=== PATIENT | female | born 1970 ===

== ENCOUNTER → 2020-08-22 14:37 | Outpatient (BNVA) | payer MEDICARE, MEDICAID, SELFPAY | PROVIDERS: PCP Family Medicine; Visit Provider Student in an Organized Health Care Education/Training Program | DX: Z13.89 Encounter for screening for other disorder (principal) | CPT/HCPCS: Q3014 ==

== ENCOUNTER 2020-10-09 12:06 | Outpatient (REF) | payer MEDICARE, MEDICAID, SELFPAY ==
--- NOTE | ~2020-10-09 | MM_ITS ---
EXAMINATION: MM DIAGNOSTIC DIGITAL BREAST TOMOSYNTHESIS, BILATERAL US DIAGNOSTIC ULTRASOUND BREAST, LEFT CLINICAL INFORMATION: Pain left nipple. No discharge or palpable mass. Family history breast cancer, sister age 49. Due for yearly. The lifetime risk of breast cancer based on the Tyrer-Cuzick Model is 17%. COMPARISON: Mammography: 12/17/2018, 11/18/2017, 10/06/2016 TECHNIQUE: Digital breast tomosynthesis is performed in both the craniocaudal and mediolateral oblique views along with computer-aided detection (CAD). Synthesized 2D images are generated from the tomosynthesis. Ultrasound left breast is targeted to the area of clinical concern retroareolar and periareolar region. Grayscale imaging and color Doppler are performed without and with harmonics. FINDINGS: The breasts are heterogeneously dense, which may obscure small masses (ACR BI-RADS breast composition Category c). There are no significant masses, abnormal calcifications, or other abnormalities. Parenchymal pattern is similar to prior studies. There is no developing density. No skin thickening or coarsening of the Júnior's ligaments. Ultrasound demonstrates no cystic or solid mass, architectural abnormality, or focal duct ectasia. No skin thickening or edema tracking in soft tissue planes. Results are discussed with the patient at time of visit. MM/MM tomosynthesis diagnostic BI IMPRESSION: 1. No mammographic evidence of malignancy or inflammatory changes. 2. Unremarkable targeted left breast ultrasound. ASSESSMENT: BI-RADS 1: Negative RECOMMENDATION: 1. Patient's left breast pain should be managed based on the clinical impression. 2. Otherwise, routine annual screening mammography. This patient's information was entered into a reminder system with a target due date for their next mammogram.
== END 2020-10-09 12:07 | disposition home or self-care (01) ==
LOC: HO.MAMMO 12:06
PROVIDERS: PCP Family Medicine; Visit Provider Internal Medicine
DX: N64.4 Mastodynia (principal)
CPT/HCPCS: 76642; 77062; 77066

== ENCOUNTER → 2021-10-17 13:42 | Outpatient (BNVA) | payer MEDICARE, MEDICAID, SELFPAY | PROVIDERS: PCP Family Medicine; Visit Provider Nurse Practitioner Family | DX: Z13.89 Encounter for screening for other disorder (principal) ==

== ENCOUNTER 2021-10-24 12:05 | Outpatient (REF) | payer MEDICARE, MEDICAID, SELFPAY ==
--- NOTE | ~2021-10-24 | XR_ITS ---
EXAMINATION: XR AP STANDING VIEW BOTH KNEES. XR KNEE, RIGHT CLINICAL INFORMATION: Right knee pain COMPARISON: MRI 08/25/2018 TECHNIQUE: AP standing view both knees. Lateral and sunrise views of the right knee. FINDINGS: Medial compartment narrowing of both knees with marginal osteophytes. There are small marginal osteophytes in the patellofemoral compartment of the right knee, with no significant joint effusion. No fracture or focal osseous lesion. XR/XR knee RT 2V IMPRESSION: Moderate severe medial compartment osteoarthritis of both knees. No acute abnormality.
--- NOTE | ~2021-10-24 | XR_ITS ---
EXAMINATION: XR AP STANDING VIEW BOTH KNEES. XR KNEE, RIGHT CLINICAL INFORMATION: Right knee pain COMPARISON: MRI 08/25/2018 TECHNIQUE: AP standing view both knees. Lateral and sunrise views of the right knee. FINDINGS: Medial compartment narrowing of both knees with marginal osteophytes. There are small marginal osteophytes in the patellofemoral compartment of the right knee, with no significant joint effusion. No fracture or focal osseous lesion. XR/XR knee standing BI IMPRESSION: Moderate severe medial compartment osteoarthritis of both knees. No acute abnormality.
== END 2021-10-24 12:06 | disposition home or self-care (01) ==
LOC: HO.HOSX 12:05
PROVIDERS: Visit Provider Orthopaedic Surgery
DX: M17.11 Unilateral primary osteoarthritis, right knee (principal); E11.9 Type 2 diabetes mellitus without complications
CPT/HCPCS: 20610; 73560; 73565; 99212; J1100

== ENCOUNTER 2021-11-12 15:15 | Outpatient (REF) | payer MEDICARE, MEDICAID, SELFPAY ==
--- NOTE | ~2021-11-12 | MM_ITS ---
EXAMINATION: MM SCREENING DIGITAL BREAST TOMOSYNTHESIS, BILATERAL CLINICAL INFORMATION: Screening. Asymptomatic. Family history breast cancer, sister The lifetime risk of breast cancer based on the Tyrer-Cuzick Model is 20%. COMPARISON: Mammography: 10/09/2020, 12/16/2018, 11/18/2017, ultrasound left breast 10/09/2020. TECHNIQUE: Digital breast tomosynthesis is performed in both the craniocaudal and mediolateral oblique views along with computer-aided detection (CAD). Synthesized 2D images are generated from the tomosynthesis. Additional left MLO view is provided. FINDINGS: The breasts are heterogeneously dense, which may obscure small masses (ACR BI-RADS breast composition Category c). There are no significant masses, abnormal calcifications, or other abnormalities. Fibronodular parenchymal pattern is similar to prior studies. No significant changes. MM/MM tomosynthesis screening BI IMPRESSION: No mammographic evidence of malignancy. ASSESSMENT: BI-RADS 1: Negative RECOMMENDATION: Routine annual mammography screening. This patient's information was entered into a reminder system with a target due date for their next mammogram.
== END 2021-11-12 15:16 | disposition home or self-care (01) ==
LOC: HO.MAMMO 15:15
PROVIDERS: Visit Provider Family Medicine
DX: Z12.31 Encounter for screening mammogram for malignant neoplasm of breast (principal)
CPT/HCPCS: 77063; 77067

== ENCOUNTER → 2021-12-31 11:36 | Outpatient (BNVA) | payer MEDICARE, MEDICAID, SELFPAY | PROVIDERS: PCP Family Medicine; Referring Provider Family Medicine; Visit Provider Physician Assistant | DX: R43.2 Parageusia (principal) | CPT/HCPCS: 99202 ==

== ENCOUNTER → 2022-03-18 10:37 | Outpatient (BNVA) | payer MEDICARE, MEDICAID, SELFPAY | PROVIDERS: PCP Family Medicine; Visit Provider Internal Medicine Rheumatology | DX: M17.0 Bilateral primary osteoarthritis of knee (principal); M47.816 Spondylosis without myelopathy or radiculopathy, lumbar region; R76.11 Nonspecific reaction to tuberculin skin test without active tuberculosis; H20.9 Unspecified iridocyclitis | CPT/HCPCS: 99212 ==

== ENCOUNTER 2022-05-12 14:51 | Outpatient (REF) | payer MEDICARE, MEDICAID, SELFPAY ==
--- NOTE | ~2022-05-12 | XR_ITS ---
EXAMINATION: XR CHEST CLINICAL INFORMATION: Latent tuberculosis COMPARISON: Chest radiograph dated 07/11/2019 TECHNIQUE: 4 views of the chest were obtained. FINDINGS: No consolidation, pneumothorax, or pleural effusion. No significant pulmonary nodularity. Yane are normal in appearance without radiographic evidence of adenopathy. Cardiac and mediastinal contours are normal. No acute osseous findings. Costophrenic thickening clips are present in the right upper quadrant. XR/XR chest 4 views IMPRESSION: No acute pulmonary findings. No radiographic findings of tuberculosis.
== END 2022-05-12 14:52 | disposition home or self-care (01) ==
LOC: HO.XRAY 14:51
PROVIDERS: PCP Family Medicine; Visit Provider Internal Medicine
DX: Z22.7 Latent tuberculosis (principal); H20.9 Unspecified iridocyclitis
CPT/HCPCS: 71048; 99202

== ENCOUNTER → 2022-05-14 10:36 | Outpatient (BNVA) | payer MEDICARE, MEDICAID, SELFPAY | PROVIDERS: PCP Family Medicine; Referring Provider Family Medicine; Visit Provider Internal Medicine Cardiovascular Disease | DX: Z01.810 Encounter for preprocedural cardiovascular examination (principal); R00.2 Palpitations | CPT/HCPCS: 93005; 99212 ==

== ENCOUNTER 2022-06-02 13:31 | Outpatient (REF) | payer MEDICARE, MEDICAID, SELFPAY ==
[2022-06-02 14:54] LABS: MANUAL DIFF FLAG NO
[2022-06-02 15:05] LABS: Basophils Absolute Auto 0.1 X10*3/uL (0.0-0.2); Basophils Percent Auto 1.1 % (0-2); Eosinophils Absolute Auto 0.1 X10*3/uL (0.0-0.4); Eosinophils Percent Auto 1.6 % (0-4); Hematocrit 42.3 % (37.0-47.0); Imm Gran Abs Auto 0.01 X10*3/uL (0.00-0.03); Imm Gran Pct Auto 0.2 % (0.0-0.4); Lymphocytes Absolute Auto 0.9 X10*3/uL (1.2-4.9); Lymphocytes Percent Auto 20.5 % (20-40); Mean Corpuscular HGB Conc 33.1 g/dl (31.0-35.0); Mean Corpuscular Hemoglobin 30.5 pg (27.0-33.0); Mean Corpuscular Volume 92.2 fL (80.0-98.0); Mean Platelet Volume 8.7 fL (9.4-12.3); Monocytes Absolute Auto 0.5 X10*3/uL (0.1-1.2); Monocytes Percent Auto 11.8 % (2-11); Neutrophils Absolute Auto 2.9 x10*3/uL (2.0-8.3); Neutrophils Percent Auto 64.8 % (45-73); Platelet Count 278 X10*3/uL (160-400); Red Blood Count 4.59 X10*6/uL (4.20-5.50); Red Cell Distribution Width 13.2 % (11.0-16.0); White Blood Count 4.4 X10*3/uL (4.8-10.8)
[2022-06-02 15:34] LABS: Alanine Aminotransferase 37 U/L (0-31); Albumin Level 4.5 g/dL (3.5-5.0); Alkaline Phosphatase 84 U/L (39-117); Anion Gap 17 (12-20); Aspartate Amino Transferase 41 U/L (5-31); Bilirubin Total 0.4 mg/dL (0.0-1.0); Blood Urea Nitrogen 9 mg/dL (9-16); Calcium 9.8 mg/dL (8.4-10.2); Carbon Dioxide 26 mmol/L (22-29); Chloride 103 mmol/L (96-108); Estimated Glomerular Filt Rate 52; Glucose Random 124 mg/dL (60-115); Potassium 4.5 mmol/L (3.3-5.1); Sodium 141 mmol/L (135-145); Total Protein 8.1 g/dL (6.5-8.0)
[2022-06-02 15:58] LABS: Erythrocyte Sedimentation Rate 18 MM/HR (0-20); Ferritin 87 ng/mL (10-250); TSH reflex Free T4 0.14 uIU/mL (0.32-4.0); Vitamin D 25-OH Total 27.6 ng/mL (>30)
[2022-06-02 16:01] LABS: Folate 8.8 ng/mL (> or = 4.0); Vitamin B12 481 pg/mL (200-900)
[2022-06-04 15:36] LABS: Gliadin Deamidated IgA Ab 3.4 U/mL; Gliadin Deamidated IgG Ab <1.0 U/mL; Transglutaminase Ab IgG <1.0 U/mL; Transglutaminase IgA <1.0 U/mL
[2022-06-06 13:01] LABS: Alpha-Tocopherol 12.9 mg/L (5.7-19.9); Beta-Gamma Tocopherol 1.3 mg/L (<=4.3)
[2022-06-06 14:21] LABS: Vitamin A 36 mcg/dL (38-98)
[2022-06-06 16:11] LABS: Histamine Plasma <1.5 ng/mL (< OR = 1.8)
[2022-06-07 06:47] LABS: Zinc 77 mcg/dL (60-130)
[2022-06-07 10:32] LABS: Vitamin C 0.6 mg/dL (0.3-2.7)
[2022-06-07 17:16] LABS: Nicotinamide <20 ng/mL; Vit B3 - Nicotinic Acid <20 ng/mL
[2022-06-09 06:26] LABS: Vitamin B6 9.6 ng/mL (2.1-21.7)
[2022-06-09 11:07] LABS: Vitamin K1 232 pg/mL (130-1500)
== END 2022-06-02 13:32 | disposition home or self-care (01) ==
LOC: HO.LAB 13:31
PROVIDERS: PCP Family Medicine; Visit Provider Internal Medicine Gastroenterology
DX: H20.9 Unspecified iridocyclitis (principal); K21.9 Gastro-esophageal reflux disease without esophagitis; R43.2 Parageusia; K75.81 Nonalcoholic steatohepatitis (NASH); R19.7 Diarrhea, unspecified; G89.29 Other chronic pain; R10.33 Periumbilical pain; Z22.7 Latent tuberculosis
CPT/HCPCS: 36415; 80053; 82180; 82306; 82607; 82728; 82746; 83088; 83520; 83735; 84207; 84439; 84443; 84446; 84590; 84591; 84597; 84630; 85025; 85652; 86003; 86258; 86364; 99212

== ENCOUNTER → 2022-06-03 13:58 | Outpatient (REF) | payer MEDICARE, MEDICAID, SELFPAY ==
--- NOTE | 2022-06-03 14:02 | HM_ITS ---
Conclusion: 1. Patient was monitored for total period of 9 days and 22 hours 2. Baseline was normal sinus rhythm with average heart rate of 70 beats per minute 3. No significant pauses or bradycardia noted next 4. Total of 3187 PACs accounting for 0.37% of total beats accounting for occasional PACs 4. Four short runs of supraventricular tachycardia, fastest at 152 beats per min with longest of 8-10 beats. 5. Patient reported 3 events which correlated with sinus rhythm. MTDD
--- NOTE | 2022-06-03 14:02 | CA_ITS ---
Transthoracic Echocardiogram Patient (Last, First, Middle): Jennifer Sosa, Gender: Female Date of : 1970 Age: 52 Procedure Date: 06/03/2022 Procedure Type: Transthoracic Echocardiogram Location: OP Height: 165.1 cm Weight: 94.35 kg BSA: 2.01 m2 Heart Rate: bpm BP: 134 / 73 mmHg Cosmetologist Apprentice: MIGUEL Referring MD: Bill Goodman MD Symptoms: R00.2 - Palpitations Study Quality: Adequate ECG Rhythm: Sinus and atrial fibrillation Conclusions: - The left ventricular systolic function is normal. The calculated ejection fraction is 65% by biplane method. - The left atrium is moderately dilated. - There is mild mitral annular calcification. - There is mild tricuspid valve regurgitation. - Rhythm alternating between sinus/atrial fibrillation with controlled rate. Findings Left Ventricle Normal left ventricular cavity size. There is mildly increased left ventricular wall thickness. The left ventricular systolic function is normal. The calculated ejection fraction is 65% by biplane method. There is no evidence of regional wall motion abnormalities. Diastolic function is normal for age. Right Ventricle Normal right ventricular cavity size and systolic function. Atria The left atrium is moderately dilated. The right atrium is normal in size. Aortic Valve There is a normal trileaflet aortic valve. There is no aortic valve stenosis. There is no aortic valve regurgitation. Mitral Valve The mitral valve appears normal. There is mild mitral annular calcification. There is trace mitral valve regurgitation. There is no mitral valve stenosis. Pulmonic Valve The pulmonic valve is likely normal. Tricuspid Valve Normal tricuspid valve structure. There is mild tricuspid valve regurgitation. There is no evidence of pulmonary hypertension. Great Vessels The aortic annulus, sinuses of valsalva, and asc aorta are normal in size. Venous The inferior vena cava is normal in size and collapses greater than 50% with inspiration. Pericardium/Pleural There is no evidence of pericardial effusion. Prior Study Comparison Changes noted compared to prior study dated: 09/02/2013. Increase in atrial size. Measurements 2D Linear Measurements IVSd: 1.21 0.6-0.9/0.6-1.0 cm LVIDd: 4.17 3.9-5.3/4.2-5.9 cm LVIDd Index: 2.07 2.4-3.2/2.2-3.1 cm/m2 LVIDs: 2.62 2.0-3.6 cm LVPWd: 1.23 0.7-1.1 cm LA Diam: 3.70 2.7-3.8/3.0-4.0 cm LAIDs Index: 1.84 1.5-2.3 cm/m2 LV Mass: 224.94 67-162/88-224 g LV Mass Index: 111.91 43-95/49-115 g/m2 LVOT Diam: 2.10 3.0+(-)1.3 cm 2D Systolic Function EF 4C: 63.70 >55% EF 2C: 68.60 >55% EF BiP: 65.40 >55% Mitral Valve MV Pk E: 0.93 MV PK A: 0.73 MV Decel Time: 216.00 E/A: 1.30 E'Lateral: 10.40 E'Medial: 6.64 E/E' Med: 14.00 E/E' Lat: 8.90 PHT: 63.00 MVA PHT: 3.49 Decel [place]: 4.30 Aortic Valve AoV Pk Frank: 1.37 AoV Mn Frank: 1.01 AoV VTI: 0.34 AoV Pk Grad: 8.00 Aov Mn Grad: 5.00 REGAN Cont.VTI: 2.56 LVOT LVOT Pk Frank: 1.04 LVOT Mn Frank: 0.63 LVOT VTI: 0.25 LVOT Pk Grad: 4.00 LVOT Mn Grad: 2.00 LVOT Diam: 2.10 LVOT Area: 3.46 Diastolic Function MV Pk E: 0.93 MV Pk A: 0.73 E/A: 1.30 E'Medial: 6.64 E/E' Med: 14.00 E' Laterial: 10.40 E/E' Lat: 8.90 Right Ventricle TAPSE (mm): 23.00 TVS' Frank: 9.03 Tricuspid Valve TR Pk Frank: 2.46 TR Pk Grad: 24.00 RA Press: 8.00 RVSP: 32.00 Great Vessels Aorta Sinus of Valsalva: 3.36 2.0-3.[address] [place]: 2.65 1.7-3.4 cm Ao Asc: 3.30 2.1-3.4 cm Updated in Other Vendor System with Status of Final Rufino Malik MD electronically signed on 06/04/2022 10:16:53 AM with status of Final
== END ==
LOC: HO.CARD 13:58
PROVIDERS: Visit Provider Internal Medicine Cardiovascular Disease
DX: R00.2 Palpitations (principal)
CPT/HCPCS: 93246; 93306

== ENCOUNTER → 2022-06-09 10:03 | Outpatient (REF) | payer MEDICARE, MEDICAID, SELFPAY ==
--- NOTE | ~2022-06-09 | NM_ITS ---
Myocardial perfusion study Indication: Palpitations Technique: The patient was brought in for a Lexiscan perfusion study on 06/09/2022. Patient performed low-level exercise and was injected 0.4 mg of Lexiscan intravenously. Within a minute of injection, 35 mCi of sestamibi was given intravenously. Images were obtained using the SPECT gamma camera interlaced with the gating device. Images were obtained in supine position. Resting perfusion study was performed on 06/11/2022. Patient was administered 35 mCi of sestamibi intravenously at rest. Images were then obtained in supine position. Images obtained with and without CT attenuation. Total DLP 111 mGy-cm. Images were processed with the software and compared side to side in short axis, horizontal long axis and vertical long axis views. Findings: The stress perfusion study showed non attenuated images show minimal thinning of the distal anterior wall of the LV myocardium as well as the apex of the LV myocardium. Remainder of the LV myocardium is normally perfused. Attenuation corrected images shows moderately reduced uptake in the distal anterior and apex of the LV myocardium with thinning of the inferoapical wall of the LV myocardium.. The gated study shows normal LV systolic function with calculated LVEF of 52%. LV cavity is normal in size. The gated study shows normal systolic wall thickening and contraction of segments. Resting study shows no significant change in perfusion pattern compared to stress perfusion study. Gating at rest reveals normal systolic wall motion with ejection fraction at 53%. The findings are consistent with no clear reversible defect suggestive of ischemia. Inferior wall defect most suggestive wall attenuation artifact especially given the normal wall motion. NM/NM zohaib perf SPECT rest & str Impression: 1. Myocardial perfusion imaging study shows no evidence of myocardial ischemia 2. Gated LVEF is 52% 3. Transient ischemic dilatation not present EKG is nondiagnostic for ischemia
--- NOTE | 2022-06-09 10:05 | CA_ITS ---
Acquisition Time: 2022-06-09 10:20:40 Total Exercise Time: 00:02:00 Test Indications: Dyspnea Medications: HUMIRA DEXILANT TRULICITY VALSARTAN TRAMADOL Protocol: LEXISCAN Max HR: 121 BPM 72% of Pred: 167 BPM Max BP: 146/092 mmHG Max Work Load: 1.6 METS Pharmacological stress test with Lexiscan injection, while walking slow on treadmill with mild sob, no chest discomfort, with sinus arrythmia at baseline and in later recovery without other arrythmia, with normotensive response to injection, with nondiagnostic EKG for ischemia. In recovery she was treated with Aminophylline 75mg IVP to revere Lexiscan. Nuclear images pending. Test reviewed with Dr Goodman Referred By: Bill Goodman Overread By: MARILIN ALVARADO
== END ==
LOC: HO.CARD 10:03
PROVIDERS: Visit Provider Internal Medicine Cardiovascular Disease
DX: Z01.810 Encounter for preprocedural cardiovascular examination (principal); E11.9 Type 2 diabetes mellitus without complications
CPT/HCPCS: 78452; 93017; A9500; J0280; J2785

== ENCOUNTER → 2022-06-13 13:12 | Outpatient (BNVA) | payer MEDICARE, MEDICAID, SELFPAY | PROVIDERS: PCP Family Medicine; Visit Provider Nurse Practitioner Family | DX: Z01.810 Encounter for preprocedural cardiovascular examination (principal); R00.2 Palpitations; I48.0 Paroxysmal atrial fibrillation; I10 Essential (primary) hypertension | CPT/HCPCS: 99212 ==

== ENCOUNTER → 2022-06-19 13:06 | Outpatient (BNVA) | payer MEDICARE, MEDICAID, SELFPAY | PROVIDERS: PCP Family Medicine; Visit Provider Physician Assistant | DX: M17.11 Unilateral primary osteoarthritis, right knee (principal) | CPT/HCPCS: 99212 ==

== ENCOUNTER 2022-06-24 05:37 | Inpatient (IN) | payer MEDICARE, MEDICAID, SELFPAY ==
[2022-06-18 12:17] VITALS: BP 145/78; PULSE 52; O2SAT 100; BMI 35.2
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
[2022-06-18 16:35] LABS: MRSA Nasal PCR NEGATIVE (Negative); SA Nasal PCR NEGATIVE (Negative)
[2022-06-24] VITALS (21 sets, daily range): BP systolic 128–167; BP diastolic 70–91; PULSE 16–71; RESP 14–20; TEMP 36.1–36.9; O2SAT 96–100
--- NOTE | ~2022-06-24 | XR_ITS ---
EXAMINATION: XR KNEE, RIGHT CLINICAL INFORMATION: Right total knee arthroplasty COMPARISON: Right knee x-rays 10/24/2021 TECHNIQUE: Two views of the right knee. FINDINGS: Patient is status post right total knee arthroplasty. Components are in expected orientation. There is no periprosthetic fracture. No significant suprapatellar joint effusion. Expected subcutaneous emphysema. Skin parrish demonstrated. XR/XR knee RT 2V IMPRESSION: Expected postoperative changes of the right knee.
[2022-06-24 06:28] LABS: Glucose, Whole Blood 161 mg/dL (60-115)
[2022-06-24 06:37] LABS: COVID-19 Test Negative (Negative); IDNOW Serial# 16C4AD1C
[2022-06-24 06:43] LABS: Hematocrit 37.6 % (37.0-47.0); Hemoglobin 12.5 g/dl (12.0-16.0)
[2022-06-24] MEDS: Lactated Ringers 1,000 ML 100 ML IVCONT ×3 (06:55→19:31)
--- NOTE | 2022-06-24 07:11 | PHA.MEDREC ---
Pharmacy Consult ? Medication Reconciliation Pharmacy has reviewed the medication reconciliation completed by nursing. Cheyanne Mathur, ChavezD
--- NOTE | 2022-06-24 09:16 | P.BOP_ITS ---
Brief Operative Note Date of Service: 06/24/22 Pre-op diagnosis: Right knee OA Post-op diagnosis: same Procedure: Right TKA Implants: Tone Triathlon press fir cruciate retaining 11/19/09 Surgeon: Rob Donnelly MD Anesthesia: GETA and regional Was an Salon Coordinator used for this Procedure?: Yes Salon Coordinator: Susan Valentin Estimated blood loss (mL): 150 IV fluids (mL): 1,000 Pathology: other Condition: stable Disposition: PACU
--- NOTE | 2022-06-24 09:20 | P.OP_ITS ---
Operative Note Operative Note Date of Service: 06/24/22 Narrative: Brief Operative Note Date of Service: 06/24/22 Pre-op diagnosis: Right knee OA Post-op diagnosis: same Procedure: Right TKA Implants: Tone Triathlon press fir cruciate retaining 11/19/09cr/32a Surgeon: Rob Donnelly MD Anesthesia: GETA and regional Was an Power System Electrical Engineer used for this Procedure?: Yes Power System Electrical Engineer: Susan Valentin Estimated blood loss (mL): 150 IV fluids (mL): 1,000 Pathology: other Condition: stable Disposition: PACU Procedure in detail: The patient was brought to the operating room and prepped and draped in standard sterile fashion. A time-out was called to identify proper site proper procedure proper surgeon and IV antibiotics were administered. 1 g of IV tranexamic acid was administered. I began by making a midline incision to the retinaculum and performed a medial parapatellar arthrotomy. The patella was translated laterally and the knee was flexed up. The medial comaprtment was eburnated . I performed a small medial peel and resected the infrapatellar fat pad. Aniceto's line was then used to drill my intramedullary femoral guide and my distal femur cut of ___ mm was made in 5 degrees of valgus while protecting the soft tissues. I then measured a # 4 femur and placed my cutting guide and made my anterior posterior and chamfer cuts protecting the soft tissues at all times. Once I was satisfied with my cuts I turned my attention to the tibia. I removed the meniscus medially and laterally and , using an external cutting guide, in line with the tibial crest and the third ray, I made my distal tibial cut in 3 deg slope of while protecting the PCL the posterior soft tissues at all times. An extension block was used to confirm appropriate amount of bony resection. I then sized a #5 tibia and once I was satisfied that there was complete tibial coverage I placed my trial and with the trial femur in place took the knee through range of motion. I was satisfied with the extension and flexion as well as the stability and balance at 0, 30 and 90 degrees. I then turned my attention to the patella where I removed 1 cm from the undersurface of the patella and then trialed a 32a patellar button. Again the knee was taken through range of motion I was satisfied with the tracking. I then returned to the femur and drilled my femoral lug holes and prepared the tibia. A femoral bone plug was placed and the knee was irrigated copiously. I then press fit the patella, tibia and femur in standard fashion. I trialed different inserts until I selected a #10 insert. The final insert was placed and a 3 minutes iodine soak with local TXA was performed. A Werewolf cautery wand was used to maintain hemostasis over the capsule and meniscal beds, the gutters and peripatellar soft tissues. The knee was then closed with a running Quill suture, a 3 0 Vicryl and parrish on the skin. Patient was then placed in sterile dressing and brought to recovery room in stable condition there were no known complications.
[2022-06-24] MEDS: HYDROmorphone HCl 0.5 MG/0.5 ML SYRINGE IVPUSH ×4 (09:48→10:29)
[2022-06-24] MEDS: Acetaminophen 325 MG TABLET 650 MG PO (10:09)
[2022-06-24] MEDS: oxyCODONE HCl Immed Release 5 MG TABLET 10 MG PO ×2 (10:10→19:21)
[2022-06-24] MEDS: ceFAZolin Sodium/Dextrose,Iso 2 GM/50 ML PIGGYBACK IV (13:50)
[2022-06-24] MEDS: HYDROmorphone HCl 0.5 MG/0.5 ML SYRINGE 0.25 MG IVPUSH (14:21)
[2022-06-24] MEDS: LORazepam 0.5 MG TABLET PO ×2 (14:22→22:49)
--- NOTE | 2022-06-24 17:06 | P.CONHOSP_ITS ---
History of Present Illness Data of Consult Service Date: 06/24/22 Requesting physician: Susan Valentin Primary Care Provider: Morena Kimball MD [facility] Reason for consult: medical management DM, htn 52-year-old female with [id number] type 2 diabetes, hypertension, paroxysmal atrial fibrillation anticoagulated with Eliquis, chronic low back pain, uveitis and glaucoma, ibs on rifaximin, anxiety, osteoarthritis of the knees bilaterally, and GERD admitted to Orthopedics S/P right TKR with consult placed for medical management. Currently reporting 6/10 pain of the right knee but otherwise has no complaints. Review of Systems 2 Review of Systems: General: No fevers, malaise, unintentional weight loss HEENT: No blurred vision, diplopia. Cardiovascular: No chest pain, palpitations, or leg edema Respiratory: No shortness of breath, wheezing, cough GI: No abdominal pain, nausea, vomiting, diarrhea, constipation, melena, hematochezia : No dysuria, hematuria, increased urinary frequency, decreased urinary output MSK: +right knee pain, +low back pain Neuro: No headaches, weakness, paresthesias Skin: No rashes or lesions [facility] Medical History Anxiety Atrophic kidney Bradycardia Depression Diabetes mellitus Fibromyalgia Hypertension Latent tuberculosis PAF (paroxysmal atrial fibrillation) Polyarthralgia Positive TB test Primary osteoarthritis of knees, bilateral Psoriasis Uveitis Family History Father Diabetes COPD (chronic obstructive pulmonary disease) Asthma Mother HTN (hypertension) Arthritis Hyperlipemia Surgical History History of eye surgery History of partial hysterectomy Hx of cholecystectomy Hx of right knee surgery Hx of tooth extraction Hx of tubal ligation Social History Household Members: Family Housing: House Are you a primary adult daycare coordinator to a significant other at home: No 75 years or older and lives alone: No Alcohol intake: current Alcohol intake frequency: a few times a month Alcohol type: beer, wine and hard liquor Patient Tobacco Use Status: Never used Tobacco Second Hand Smoke Exposure: No Current occupational status: employed Current occupation: [employer] Meds Allergies Allergy/AdvReac Type Severity Reaction Status Date / Time CARLITOS Inhibitors Allergy Severe COUGH Verified 06/19/22 13:15 [CARLITOS INHIBITORS] rifampin [RIFAMPIN] Allergy Severe MUSCLE Verified 06/19/22 13:15 ACHE,PAINS simvastatin [SIMVASTATIN] Allergy Severe MUSCLE, Verified 06/19/22 13:15 muscle px ibuprofen Allergy Unknown kidney Verified 06/19/22 13:15 disease ciprofloxacin [From CIPRO] AdvReac Unknown NAUSEA/VOMI Verified 06/19/22 13:15 TING Active Medications: Current Medications Acetaminophen (Acetaminophen 325 Mg Tablet) 650 mg PO Q6H PRN PRN Reason: Pain, Mild (Pain Scale 1-3) Celecoxib (Celecoxib 200 Mg Capsule) 200 mg PO BID [facility] Docusate Sodium (Docusate Sodium 100 Mg Capsule) 100 mg PO BID [facility] Enoxaparin Sodium (Enoxaparin Sodium 40 Mg/0.4 Ml Syringe) 40 mg SUBCUT Q24H [facility] Hydromorphone HCl (Hydromorphone Hcl 0.5 Mg/0.5 Ml Syringe) 0.25 mg IVPUSH Q4H PRN; Protocol PRN Reason: Pain, Severe (Pain Scale 7-10) Last Admin: 06/24/22 14:21 Dose: 0.25 mg Lactated Ringer's (Lr) 1,000 mls @ 100 mls/hr IVCONT .Q10H [facility] Stop: 06/25/22 10:59 Last Admin: 06/24/22 15:24 Dose: Not Given Lorazepam (Lorazepam 0.5 Mg Tablet) 0.5 mg PO BEDTIME PRN PRN Reason: Anxiety Non-Formulary Medication (Brimonidine-Timolol [Combigan]) 1 drop EYE-BOTH BID [facility] Non-Formulary Medication (Dexlansoprazole [Dexilant]) 60 mg PO DAILY [facility] Ondansetron HCl (Ondansetron Hcl 4 Mg/2 Ml Vial) 4 mg IVPUSH Q8H PRN PRN Reason: Nausea and Vomiting Oxycodone HCl (Oxycodone Hcl Er 10 Mg Tab.Er.12h) 10 mg PO BID [facility] Oxycodone HCl (Oxycodone Hcl Immed Release 5 Mg Tablet) 10 mg PO Q4H PRN PRN Reason: Pain, Moderate (Pain Scale 4-6 Rifaximin (Rifaximin 550 Mg Tablet) 550 mg PO TID [facility] Last Admin: 06/24/22 16:23 Dose: Not Given Sodium Chloride (0.9 % Sodium Chloride Flush 3 Ml Syringe) 3 ml IVFLUSH QSHIFT [facility] Last Admin: 06/24/22 16:24 Dose: Not Given Home Medications Medication Instructions Recorded Confirmed Last Taken Type brimonidine 0.2 %-timolol 0.5 % 1 drp ophthalmic (eye) BID 08/22/20 06/19/22 06/22/22 History eye drops (Combigan) dexlansoprazole 60 mg 60 mg PO DAILY 08/22/20 06/19/22 06/21/22 History capsule,biphase delayed release (Dexilant) cholecalciferol (vitamin D3) 25 25 mcg PO DAILY 03/18/22 06/19/22 06/22/22 History mcg (1,000 unit) capsule sennosides 8.6 mg capsule (senna) 8.6 mg PO DAILY PRN Constipation 03/18/22 06/19/22 06/22/22 History lorazepam 0.5 mg tablet 0.5 mg PO BEDTIME PRN Anxiety 05/14/22 06/19/22 06/22/22 History dulaglutide 0.75 mg/0.5 mL 0.75 mg subcut QWEEK 06/02/22 06/19/22 06/16/22 History subcutaneous pen injector (Trulicity) valsartan 160 mg tablet (Diovan) 320 mg PO DAILY 06/13/22 06/19/22 06/23/22 History Lactobacillus acidophilus and 1 cap PO DAILY 06/18/22 06/19/22 06/22/22 History rhamnosus 15 billion cell capsule (Probiotic) ascorbic acid (vitamin C) 1,000 mg 1,000 mg PO DAILY 06/18/22 06/19/22 06/22/22 History tablet (Vitamin C) methylcellulose (laxative) 500 mg 500 mg PO BID PRN Constipation 06/18/2206/22/22 History tablet (Citrucel) multivitamin 1 tab PO DAILY 06/18/22 06/19/22 06/22/22 History ferrous sulfate 325 mg (65 mg 325 mg PO DAILY 06/19/22 06/24/22 06/22/22 History iron) tablet (iron) Physical Exam Vital Signs and Narrative: Vital Signs: Last Vital Signs Temp 97.3 F 06/24/22 14:36 Pulse 51 06/24/22 14:36 Resp 16 06/24/22 14:36 BP 128/75 06/24/22 14:36 Pulse Ox 100 06/24/22 14:36 O2 Del Method 06/24/22 14:36 O2 Flow Rate 2 06/24/22 14:36 BMI result Body Mass Index 35.2 Constitutional - Awake and Alert, No apparent distress Eyes - PERRLA, EOMI Cardiovascular - S1S2, RRR, No edema Respiratory - Normal lung expansion, Normal respiratory effort, No respiratory distress, CTA bilaterally Gastrointestinal - NT / ND; +BS; No rebound or guarding Extremities - no calf tenderness bilaterally, no swelling Musculoskeletal - right knee s/p TKR in compression bandage Skin - Warm/Dry Neurological - Alert & oriented x3 Results Labs CBC and Chem 7: 06/24/22 06:32 Labs: Laboratory Results - last 24 hr 06/24/22 06/24/22 06:15 06:23 POC Glucose 161 H COVID-19 (QUITA) Negative COVID-19 Clin Com See Note Imaging Radiologist's Impressions: Impressions Knee X-Ray 06/24/22 09:58 IMPRESSION: Expected postoperative changes of the right knee. Assessment and Plan (1) Osteoarthritis of right knee: Status: Acute Plan 52-year-old female with uzj-[id number]-nbuuhifzu type 2 diabetes, hypertension, paroxysmal atrial fibrillation anticoagulated with Eliquis, chronic low back pain, uveitis and glaucoma, ibs on rifaximin, anxiety, osteoarthritis of the knees bilaterally, and GERD admitted to Orthopedics S/P right TKR with consult placed for medical managemen. #Osteoarthritis right knee s/p right TKR POD #0 -plan per orthopedics # [id number]-[id number] type 2 diabetes -patient missed dose of Trulicity yesterday. She will have her son bring in her Trulicity for dosing today -POC glucose -diabetic diet -Humalog on sliding scale for hyperglycemia # atrial fibrillation-rate controlled -resume Eliquis at the recommendation of orthopedics -Not on rate control medication #HTN- BP soft -resume valsartan tomorrow #IBS -continue rifaximin # anxiety -continue lorazepam # GERD -continue PPI # uveitis/glaucoma -continue home eye drops Thank you for this consult. Will continue to follow.
[2022-06-24] MEDS: oxyCODONE HCl ER 10 MG TAB.ER.12H PO (19:22)
[2022-06-24] MEDS: rifAXIMin 550 MG TABLET PO (19:24)
[2022-06-24] MEDS: Docusate Sodium 100 MG CAPSULE PO (19:24)
[2022-06-24] MEDS: Celecoxib 200 MG CAPSULE PO (19:24)
[2022-06-25] VITALS (7 sets, daily range): BP systolic 131–172; BP diastolic 60–80; PULSE 59–90; RESP 16–20; TEMP 35.8–37; O2SAT 98–100
[2022-06-25] MEDS: HYDROmorphone HCl 0.5 MG/0.5 ML SYRINGE 0.25 MG IVPUSH ×3 (01:16→13:49)
[2022-06-25] MEDS: oxyCODONE HCl Immed Release 5 MG TABLET 10 MG PO ×4 (03:50→21:01)
[2022-06-25] MEDS: Lactated Ringers 1,000 ML 100 ML IVCONT (03:54)
[2022-06-25 06:01] LABS: MANUAL DIFF FLAG NO
[2022-06-25 06:22] LABS: Basophils Percent Auto 0.1 % (0-2); Hematocrit 34.3 % (37.0-47.0); Hemoglobin 11.4 g/dl (12.0-16.0); Imm Gran Abs Auto 0.04 X10*3/uL (0.00-0.03); Imm Gran Pct Auto 0.4 % (0.0-0.4); Lymphocytes Percent Auto 9.5 % (20-40); Mean Corpuscular HGB Conc 33.2 g/dl (31.0-35.0); Mean Corpuscular Hemoglobin 31.3 pg (27.0-33.0); Mean Corpuscular Volume 94.2 fL (80.0-98.0); Mean Platelet Volume 8.9 fL (9.4-12.3); Monocytes Absolute Auto 0.9 X10*3/uL (0.1-1.2); Monocytes Percent Auto 8.8 % (2-11); Neutrophils Absolute Auto 8.4 x10*3/uL (2.0-8.3); Neutrophils Percent Auto 81.2 % (45-73); Platelet Count 195 X10*3/uL (160-400); Red Blood Count 3.64 X10*6/uL (4.20-5.50); Red Cell Distribution Width 12.9 % (11.0-16.0); White Blood Count 10.4 X10*3/uL (4.8-10.8)
[2022-06-25 06:24] LABS: Anion Gap 13 (12-20); Blood Urea Nitrogen 11 mg/dL (9-16); Calcium 8.6 mg/dL (8.4-10.2); Carbon Dioxide 28 mmol/L (22-29); Chloride 102 mmol/L (96-108); Creatinine Clr Calc Pharmacy 93.2; Estimated Glomerular Filt Rate > 60; Glucose Fasting 171 mg/dL (60-99); Potassium 4.6 mmol/L (3.3-5.1); Sodium 138 mmol/L (135-145)
[2022-06-25 07:38] LABS: Glucose, Whole Blood 163 mg/dL (60-115)
--- NOTE | 2022-06-25 07:46 | PM.PNORT ---
Subjective Subjective Date of Service: 06/25/22 Interval history: POD1 Patient is resting comfortably in bed. No overnight events. Pain is well managed. No additional complaints. Physical Exam Vital Signs: Vital Signs: Last Vital Signs Temp 98.6 F 06/25/22 07:15 Pulse 67 06/25/22 07:15 Resp 18 06/25/22 07:15 BP 159/69 H 06/25/22 07:15 Pulse Ox 98 06/25/22 07:15 O2 Del Method 06/25/22 07:15 O2 Flow Rate 2 06/24/22 14:36 BMI result Body Mass Index 35.2 Const: General: cooperative, healthy appearing and no acute distress Resp: Effort & Inspection: normal respiratory effort and able to speak in complete sentences Cardio: Rate: regular rate Peripheral pulses: Peripheral pulses 2+ throughout GI: Palpation (GI): Soft to palpation Skin: Lesions: no lesions Rashes: no rashes Extrem: Other: Right knee Aquacel is clean dry and intact. Able to dorsiflex and plantar flex. Sensation intact. Pedal pulse intact. Procedures Date of Service Date of Service: 06/25/22 Progress Note: A&P Assessment and plan (1) S/P total knee arthroplasty: Status: Acute Assessment and Plan: Continue pain mgmnt Begin Lovenox for dvt ppx patient may transition to Eliquis at 48 hours postop due to new onset AFib. begin PT for right total knee arthroplasty Dispo planning-Pending PT eval, pain mgmnt (2) Osteoarthritis of right knee: Status: Acute Time Spent With Patient Time: Total time spent is greater than 50% in coordination of care (as documented) at patient's floor/unit and/or counseling patient: Quality Stroke Does the patient have a stroke diagnosis?: No VTE Prior VTE?: No VTE Risk Level:: Medical - moderate - high VTE Device Contraindication: N/A - Device Ordered VTE Drug Contraindication: N/A - Med Ordered
--- NOTE | 2022-06-25 07:54 | P.PNOP_ITS ---
Subjective Subjective Date of Service: 06/25/22 Interval history: POD 1 s/p RT TKa no overnight events resting in bed, tolerating pain well denies sob, palpitations, cp Physical Exam Vital Signs: Vital Signs: Last Vital Signs Temp 98.6 F 06/25/22 07:15 Pulse 67 06/25/22 07:15 Resp 18 06/25/22 07:15 BP 159/69 H 06/25/22 07:15 Pulse Ox 98 06/25/22 07:15 O2 Del Method 06/25/22 07:15 O2 Flow Rate 2 06/24/22 14:36 BMI result Body Mass Index 35.2 Const: General: cooperative, healthy appearing and no acute distress Resp: Effort & Inspection: normal respiratory effort and able to speak in complete sentences Cardio: Rate: regular rate Peripheral pulses: Peripheral pulses 2+ throughout GI: Palpation (GI): Soft to palpation Skin: General skin exam: no rashes or lesions noted Extrem: Other: bandage clean dry and intact. Scottie intact. No erythema or joint effusion. Calf supple nontender. Neurovascularly intact. Procedures Date of Service Date of Service: 06/25/22 Progress Note: A&P Assessment and plan (1) S/P total knee arthroplasty: Status: Acute Assessment and Plan: * Continue pain mgmnt * Begin Lovenox for dvt ppx * begin PT for RT TKA * Dispo planning-Pending PT eval, pain mgmnt Time Spent With Patient Time: Total time spent is greater than 50% in coordination of care (as documented) at patient's floor/unit and/or counseling patient: Quality Stroke Does the patient have a stroke diagnosis?: No VTE Prior VTE?: No VTE Risk Level:: Medical - moderate - high VTE Device Contraindication: N/A - Device Ordered VTE Drug Contraindication: N/A - Med Ordered
--- NOTE | 2022-06-25 09:40 | MHC.CM.PN ---
IMM 06/25/22 Female 52 S/P TKA. 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 She requires assist ADLs. Ambulation w AD. [facility] referred from Ortho office. Patient has Wilfrid in place. DP home [facility] Wilfrid patients son will transport home. VAX x2. HCP documented placed on chart.
[2022-06-25] MEDS: oxyCODONE HCl ER 10 MG TAB.ER.12H PO ×2 (09:55→21:03)
[2022-06-25] MEDS: rifAXIMin 550 MG TABLET PO ×3 (09:55→21:03)
[2022-06-25] MEDS: Celecoxib 200 MG CAPSULE PO ×2 (09:56→21:03)
[2022-06-25] MEDS: Docusate Sodium 100 MG CAPSULE PO ×2 (09:56→21:03)
[2022-06-25] MEDS: Enoxaparin Sodium 40 MG/0.4 ML SYRINGE SUBCUT (09:56)
--- NOTE | 2022-06-25 10:30 | P.PNIM_ITS ---
Subjective Subjective Date of Service: 06/25/22 Interval History: Seen in follow up for medical management s/p right TKR POD1 Interval history: Amrit reports improvement in pain. Walked to doorway and back with moderate discomfort. Worried about bleeding risk with lovenox, but is on eliquis at home for afib Review of Systems General: No fevers, malaise, unintentional weight loss Cardiovascular: No chest pain, palpitations, or leg edema Respiratory: No shortness of breath, wheezing, cough GI: No abdominal pain, nausea, vomiting, diarrhea, constipation, melena, hematochezia : No dysuria, hematuria, increased urinary frequency MSK: +right knee pain Neuro: No headaches, weakness, paresthesias Skin: No rashes or lesions Review of Systems: Yes all other systems are reviewed and are negative Physical Exam Vital Signs: Vital Signs: Last Vital Signs Temp 98.6 F 06/25/22 07:15 Pulse 67 06/25/22 07:15 Resp 18 06/25/22 07:15 BP 159/69 H 06/25/22 07:15 Pulse Ox 98 06/25/22 07:15 O2 Del Method 06/25/22 07:15 O2 Flow Rate 2 06/24/22 14:36 BMI result Body Mass Index 35.2 Constitutional - Awake and Alert, No apparent distress Eyes - PERRLA, EOMI Cardiovascular - S1S2, RRR, No edema Respiratory - Normal lung expansion, Normal respiratory effort, No respiratory distress, CTA bilaterally Gastrointestinal - NT / ND; +BS; No rebound or guarding Extremities - no calf tenderness bilaterally, no swelling Musculoskeletal - right knee s/p TKR in compression bandage Skin - Warm/Dry Neurological - Alert & oriented x3 Objective Data Active Medications Acetaminophen (Acetaminophen 325 Mg Tablet) 650 mg PO Q6H PRN PRN Reason: Pain, Mild (Pain Scale 1-3) Celecoxib (Celecoxib 200 Mg Capsule) 200 mg PO BID [facility] Last Admin: 06/25/22 09:56 Dose: 200 mg Documented By: GLENN Docusate Sodium (Docusate Sodium 100 Mg Capsule) 100 mg PO BID [facility] Last Admin: 06/25/22 09:56 Dose: 100 mg Documented By: GLENN Enoxaparin Sodium (Enoxaparin Sodium 40 Mg/0.4 Ml Syringe) 40 mg SUBCUT Q24H [facility] Last Admin: 06/25/22 09:56 Dose: 40 mg Documented By: GLENN Hydromorphone HCl (Hydromorphone Hcl 0.5 Mg/0.5 Ml Syringe) 0.25 mg IVPUSH Q4H PRN; Protocol PRN Reason: Pain, Severe (Pain Scale 7-10) Last Admin: 06/25/22 07:37 Dose: 0.25 mg Documented By: GLENN Lactated Ringer's (Lr) 1,000 mls @ 100 mls/hr IVCONT .Q10H [facility] Stop: 06/25/22 10:59 Last Admin: 06/25/22 03:54 Dose: 100 mls/hr Documented By: JOHN Lorazepam (Lorazepam 0.5 Mg Tablet) 0.5 mg PO BEDTIME PRN PRN Reason: Anxiety Last Admin: 06/24/22 22:49 Dose: 0.5 mg Documented By: SEBASTIAN Non-Formulary Medication (Brimonidine-Timolol [Combigan]) 1 drop EYE-BOTH BID [facility] Non-Formulary Medication (Dexlansoprazole [Dexilant]) 60 mg PO DAILY [facility] Ondansetron HCl (Ondansetron Hcl 4 Mg/2 Ml Vial) 4 mg IVPUSH Q8H PRN PRN Reason: Nausea and Vomiting Oxycodone HCl (Oxycodone Hcl Er 10 Mg Tab.Er.12h) 10 mg PO BID [facility] Last Admin: 06/25/22 09:55 Dose: 10 mg Documented By: GLENN Oxycodone HCl (Oxycodone Hcl Immed Release 5 Mg Tablet) 10 mg PO Q4H PRN PRN Reason: Pain, Moderate (Pain Scale 4-6 Last Admin: 06/25/22 03:50 Dose: 10 mg Documented By: JOHN Rifaximin (Rifaximin 550 Mg Tablet) 550 mg PO TID [facility] Last Admin: 06/25/22 09:55 Dose: 550 mg Documented By: GLENN Sodium Chloride (0.9 % Sodium Chloride Flush 3 Ml Syringe) 3 ml IVFLUSH QSHIFT [facility] Last Admin: 06/25/22 09:26 Dose: Not Given Documented By: JEANETTE Non-Admin Reason: IV Running Labs CBC & Chem 7: 06/25/22 05:26 06/25/22 05:26 Labs: Laboratory Results - last 24 hr 06/25/22 06/25/22 06/25/22 05:26 05:26 07:14 MCV 94.2 MCH 31.3 MCHC 33.2 RDW 12.9 Plt Count 195 D MPV 8.9 L Immature Gran % (Auto) 0.4 Neut % (Auto) 81.2 H Lymph % (Auto) 9.5 L [place] % (Auto) 8.8 Eos % (Auto) 0.0 Baso % (Auto) 0.1 Lymph # (Auto) 1.0 L [place] # (Auto) 0.9 Eos # (Auto) 0.0 Baso # (Auto) 0.0 Abs Immat Gran (auto) 0.04 H Absolute Neuts (auto) 8.4 H Absolute Nucleated RBC 0.000 Nucleated RBC % (auto) 0.0 Anion Gap 13 Estim Creat Clear Calc 93.2 Estimated GFR > 60 POC Glucose 163 H Fasting Glucose 171 H Calcium 8.6 D Assessment and Plan (1) S/P total knee arthroplasty: Status: Acute Plan 52-year-old female with uso-oqjkonp-zhwwdnkri type 2 diabetes, hypertension, paroxysmal atrial fibrillation anticoagulated with Eliquis, chronic low back pain, uveitis and glaucoma, ibs on rifaximin, anxiety, osteoarthritis of the knees bilaterally, and GERD admitted to Orthopedics S/P right TKR with consult placed for medical managemen. #Osteoarthritis right knee s/p right TKR POD #1 -plan per orthopedics # ikw-dtiziau-owxuclvkt type 2 diabetes- glucose reasonably controlled. -patient missed dose of Trulicity yesterday.?Has not gotten trulcity dose from home. Will likely need to resume at home and adjust weekly dosing. -POC glucose -diabetic diet -Humalog on sliding scale for hyperglycemia # atrial fibrillation-rate controlled -resume Eliquis at the recommendation of orthopedics -Not on rate control medication #HTN-reasonably controlled -resume valsartan tomorrow #IBS -continue rifaximin # anxiety -continue lorazepam # GERD -continue PPI # uveitis/glaucoma -continue home eye drops Thank you for this consult. Will continue to follow. Quality Stroke Does the patient have a stroke diagnosis?: No VTE Prior VTE?: No VTE Risk Level:: Medical - moderate - high VTE Device Contraindication: N/A - Device Ordered VTE Drug Contraindication: N/A - Med Ordered
[2022-06-25 11:18] LABS: Glucose, Whole Blood 166 mg/dL (60-115)
--- NOTE | 2022-06-25 12:09 | HO.POSTANES ---
Post Anesthesia Evaluation Post Anesthesia Evaluation Vital Signs: Vital Signs Temp Pulse Resp BP Pulse Ox O2 Del Method 06/25/22 10:59 97.0 F 81 18 134/61 100 Room Air 06/25/22 07:15 98.6 F 67 18 159/69 H 98 Room Air 06/25/22 03:19 97.3 F 59 18 153/77 H 99 Room Air Anesthesia: Nerve Block and General Mental Status: Awake Pain Control: Satisfactory Nausea/Vomiting: None Hydration: Adequate Anesthesia-Related Issues: No Anes. Related Issues
--- NOTE | 2022-06-25 13:11 | MHC.CLN ---
NUTRITION INCREASED DIABETIC DIET CALORIES TO 1800 KCALS TO BETTER MEET ESTIMATED ENERGY NEEDS.
--- NOTE | 2022-06-25 14:34 | P.CDIC_ITS ---
CDI Concurrent Query Documentation Clarification: PHYSICIAN'S DOCUMENTATION REQUEST Date of Query: 06/25/22 1435 Patient Name: Jennifer Sosa Admit Date: 06/24/22 Dear Doctor, A review of the medical record indicates additional documentation may be needed. Please review below and update the documentation accordingly. Clinical Indicators: Is there a diagnosis that correlates with the findings below: Risk Factors/Clinical Indicators/Treatments BMI: 35.3 HEIGHT: 5ft 5in WEIGHT: 96.162kg If possible, please provide an associated diagnosis related to the abnormal BMI, such as: * Overweight * Obesity * Due to excess calories * Drug induced * Due to other cause * Severe or Morbid Obesity Or: * BMI is not significant * Other (please specify) * Unable to determine Use of terms such as suspected, likely, concern for, or probable (associated with a specific diagnosis that is being evaluated, monitored, or treated as if it exists) are acceptable and can be coded in the inpatient setting, when d ocumented at the time of discharge. Thank you, Su Hall MS, RN, CCRN Extension: [phone] Please use your independent medical judgment in providing your response. THIS QUERY IS PART OF THE PERMANENT MEDICAL RECORD
--- NOTE | 2022-06-25 14:34 | MHC.CDI.CONC ---
CDI Concurrent Query Documentation Clarification: PHYSICIAN'S DOCUMENTATION REQUEST Date of Query: 06/25/22 1438 Patient Name: Jennifer Sosa Admit Date: 06/24/22 Dear Doctor, A review of the medical record indicates additional documentation may be needed. Please review below and update the documentation accordingly. Clinical Indicators: Is there a diagnosis that correlates with the findings below: Risk Factors/Clinical Indicators/Treatments BMI: 35.3 HEIGHT: 5ft 5in WEIGHT: 96.162kg If possible, please provide an associated diagnosis related to the abnormal BMI, such as: Overweight Obesity Due to excess calories Drug induced Due to other cause Severe or Morbid Obesity Or: BMI is not significant Other (please specify) Unable to determine Use of terms such as suspected, likely, concern for, or probable (associated with a specific diagnosis that is being evaluated, monitored, or treated as if it exists) are acceptable and can be coded in the inpatient setting, when documented at the time of discharge. Thank you, Su Hall MS, RN, CCRN Extension: [phone] Please use your independent medical judgment in providing your response. THIS QUERY IS PART OF THE PERMANENT MEDICAL RECORD
[2022-06-25 15:48] LABS: Glucose, Whole Blood 217 mg/dL (60-115)
[2022-06-25] MEDS: Insulin Lispro 100 UNIT/ML 3 ML VIAL SUBCUT (17:01)
[2022-06-25] MEDS: 0.9 % Sodium Chloride Flush 3 ML SYRINGE IVFLUSH (17:02)
[2022-06-25 20:13] LABS: Glucose, Whole Blood 141 mg/dL (60-115)
[2022-06-26] MEDS: 0.9 % Sodium Chloride Flush 3 ML SYRINGE IVFLUSH ×4 (00:11→23:51)
[2022-06-26] MEDS: HYDROmorphone HCl 0.5 MG/0.5 ML SYRINGE 0.25 MG IVPUSH ×3 (00:20→14:06)
[2022-06-26 02:46] VITALS: BP 127/62; PULSE 86; RESP 16; TEMP 36.9; O2SAT 99
--- NOTE | 2022-06-26 05:42 | P.DS_ITS ---
DS: Providers Provider Date of Service: 06/26/22 Date of admission: 06/24/22 05:37 Primary care physician: Morena Kimball MD Consults: 06/24/22 15:16 Consult to Hospitalist Routine Consulting Provider: Hospitalist Reason For Exam: diabetes, new afib on eliquis DS: Diagnosis Discharge Diagnosis (1) S/P total knee arthroplasty: Status: Acute DS: Summary Hospital Course Hospital Course: The patient underwent a successful right total knee arthroplasty, she was transferred to PACU and then to the floor to recover. During their stay, their vitals were stable, afebrile at 98.1 . Labs were unremarkable, H/H 11.2/32.9 . POD 1 she was started on Loveno for DVT ppx, and 48 hours post op she transitioned to her home anticoagulant, Eliquis. She also received PT services twice a day. Prior to discharge, her dressing was changed, incision clean dry and intact, new Aquacel dressing applied and the plan was to be discharged home with [facility] services. Physical Therapy for Total knee arthroplasty: WBAT, gait training, ROM 0-12, quad strength * Limit stair climbing * No showering, no tub bath-keep dressing clean, dry and intact * No driving x6 weeks Follow up with [facility] [place] in 2 weeks: 07/14/22 @ 11:30am with Susan valentin Time Spent with Patient Time attestation: Total time spent providing and/or coordinating discharge services: Discharge coordination time: Less than 30 minutes Quality: Safe Use of Opioids Does Pt have an Active Cancer Diagnosis on the Problem List?: No Quality: Stroke Does the patient have a stroke diagnosis?: No Physical Exam Vital Signs: Vital Signs: Last Vital Signs Temp 98.4 F 06/26/22 02:46 Pulse 86 06/26/22 02:46 Resp 16 06/26/22 02:46 BP 127/62 06/26/22 02:46 Pulse Ox 99 06/26/22 02:46 O2 Del Method 06/26/22 02:46 O2 Flow Rate 2 06/24/22 14:36 BMI result Body Mass Index 35.2 Const: General: cooperative, healthy appearing and no acute distress Resp: Effort & Inspection: normal respiratory effort and able to speak in complete sentences Cardio: Rate: regular rate Peripheral pulses: Peripheral pulses 2+ throughout GI: Palpation (GI): Soft to palpation Skin: General skin exam: no rashes or lesions noted Extrem: Other: bandage clean dry and intact. Scottie intact. No erythema or joint effusion. Calf supple nontender. Neurovascularly intact. DS: Data Data Completed and Pending Pending studies at discharge: Pending at discharge 06/24/22 08:52 Surgical [PTH] Routine Labs on day of discharge: Laboratory Results - last 24 hr 06/25/22 06/25/22 06/25/22 05:26 05:26 07:14 WBC 10.4 RBC 3.64 L D Hgb 11.4 L Hct 34.3 L MCV 94.2 MCH 31.3 MCHC 33.2 RDW 12.9 Plt Count 195 D MPV 8.9 L Immature Gran % (Auto) 0.4 Neut % (Auto) 81.2 H Lymph % (Auto) 9.5 L [place] % (Auto) 8.8 Eos % (Auto) 0.0 Baso % (Auto) 0.1 Lymph # (Auto) 1.0 L [place] # (Auto) 0.9 Eos # (Auto) 0.0 Baso # (Auto) 0.0 Abs Immat Gran (auto) 0.04 H Absolute Neuts (auto) 8.4 H Absolute Nucleated RBC 0.000 Nucleated RBC % (auto) 0.0 Sodium 138 Potassium 4.6 Chloride 102 Carbon Dioxide 28 Anion Gap 13 BUN 11 Creatinine 0.80 Estim Creat Clear Calc 93.2 Estimated GFR > 60 POC Glucose 163 H Fasting Glucose 171 H Calcium 8.6 D 06/25/22 06/25/22 06/25/22 11:10 15:43 20:03 WBC RBC Hgb Hct MCV MCH MCHC RDW Plt Count MPV Immature Gran % (Auto) Neut % (Auto) Lymph % (Auto) [place] % (Auto) Eos % (Auto) Baso % (Auto) Lymph # (Auto) [place] # (Auto) Eos # (Auto) Baso # (Auto) Abs Immat Gran (auto) Absolute Neuts (auto) Absolute Nucleated RBC Nucleated RBC % (auto) Sodium Potassium Chloride Carbon Dioxide Anion Gap BUN Creatinine Estim Creat Clear Calc Estimated GFR POC Glucose 166 H 217 H 141 H Fasting Glucose Calcium Discharge Plan Discharge Anticipated Discharge Date/Time: 06/28/22 10:07 Patient Disposition: Home Health Service Discharge Diagnosis: RT TKA Referrals: Meuse,Ta-Nhi, PA-C [Physician Systems Lead] - 2 Weeks (07/14/22 11:30 [facility] [place] [facility] Susan Valentin PA-C) Discharge Medications: New celecoxib 200 mg Capsule 200 mg PO BID 30 Days Qty: 60 0RF acetaminophen 325 mg Tablet 650 mg PO Q6H PRN (Reason: Pain, Mild (Pain Scale 1-3)) 30 Days Qty: 240 0RF oxycodone 10 mg tablet 10 mg PO Q6H PRN (Reason: pain) 7 Days Qty: 42 0RF Rx Instructions: Partial Fill upon patient request. Continued tramadol 50 mg tablet 50 mg PO Q6H Qty: 120 3RF (D[place] [facility] [place]MEDSUPPLY Qty: 1 0RF Rx Instructions: Folding Front wheeled walker multivitamin Tablet 1 tab PO DAILY ascorbic acid (vitamin C) [Vitamin C] 1,000 mg Tablet 1,000 mg PO DAILY Probiotic 15 billion cell Capsule 1 cap PO DAILY Citrucel 500 mg tablet 500 mg PO BID PRN (Reason: Constipation) Combigan 0.2-0.5 % drops 1 drp ophthalmic (eye) BID Dexilant 60 mg capsule,biphase delayed releas 60 mg PO DAILY valsartan [Diovan] 160 mg tablet 320 mg PO DAILY lorazepam 0.5 mg tablet 0.5 mg PO BEDTIME PRN (Reason: Anxiety) Trulicity 0.75 mg/0.5 mL pen injector 0.75 mg subcut QWEEK rifaximin 550 mg tablet 550 mg PO TID 14 Days Qty: 42 0RF cholecalciferol (vitamin D3) 25 mcg (1,000 unit) capsule 25 mcg PO DAILY senna 8.6 mg capsule 8.6 mg PO DAILY PRN (Reason: Constipation) ferrous sulfate [iron] 325 mg (65 mg iron) tablet 325 mg PO DAILY Eliquis 5 mg tablet 5 mg PO BID Qty: 60 5RF Label Comments: will start after surgery Rx Instructions: Blood thinner for atrial fibrillation. To start when directed post total knee replacement. Take 1 tablet twice daily Discharge Orders: Discharge Order (Routine); Ordered 06/28/22 Ordered By: Susan Valentin Diet: Regular diet Activity on Discharge: Use cane or walker Stand Alone Forms: Patient Portal Discharge page Care Plan Goals: Restore function of joint Health Concerns: Begin Triceyola on 06/27/22 Plan of Treatment: Physical Therapy Pain management DVT prophylaxis Assessment: Physical Therapy for Total knee arthroplasty: WBAT, gait training, ROM 0-12, quad strength * Limit stair climbing * No showering, no tub bath-keep dressing clean, dry and intact * No driving x6 weeks * Begin mak on 06/27/22 * Follow up with [facility] [place]ics in 2 weeks: 07/14/22 @ 11:30am with Susan valentin
[2022-06-26] MEDS: oxyCODONE HCl Immed Release 5 MG TABLET 10 MG PO ×4 (06:36→21:42)
[2022-06-26 06:46] LABS: MANUAL DIFF FLAG NO
[2022-06-26 06:58] LABS: Basophils Percent Auto 0.4 % (0-2); Eosinophils Absolute Auto 0.1 X10*3/uL (0.0-0.4); Hematocrit 33.4 % (37.0-47.0); Hemoglobin 11.1 g/dl (12.0-16.0); Imm Gran Abs Auto 0.07 X10*3/uL (0.00-0.03); Imm Gran Pct Auto 0.8 % (0.0-0.4); Lymphocytes Absolute Auto 1.1 X10*3/uL (1.2-4.9); Lymphocytes Percent Auto 13.6 % (20-40); Mean Corpuscular HGB Conc 33.2 g/dl (31.0-35.0); Mean Corpuscular Hemoglobin 31.4 pg (27.0-33.0); Mean Corpuscular Volume 94.4 fL (80.0-98.0); Mean Platelet Volume 9.1 fL (9.4-12.3); Monocytes Percent Auto 11.6 % (2-11); Neutrophils Percent Auto 72.6 % (45-73); Platelet Count 177 X10*3/uL (160-400); Red Blood Count 3.54 X10*6/uL (4.20-5.50); Red Cell Distribution Width 13.2 % (11.0-16.0); White Blood Count 8.3 X10*3/uL (4.8-10.8)
[2022-06-26 07:22] LABS: Anion Gap 11 (12-20); Blood Urea Nitrogen 7 mg/dL (9-16); Calcium 8.3 mg/dL (8.4-10.2); Carbon Dioxide 29 mmol/L (22-29); Chloride 102 mmol/L (96-108); Estimated Glomerular Filt Rate > 60; Glucose Fasting 164 mg/dL (60-99); Potassium 4.2 mmol/L (3.3-5.1); Sodium 138 mmol/L (135-145)
[2022-06-26] MEDS: Celecoxib 200 MG CAPSULE PO ×2 (07:35→20:22)
[2022-06-26] MEDS: rifAXIMin 550 MG TABLET PO ×3 (07:35→20:22)
[2022-06-26] MEDS: oxyCODONE HCl ER 10 MG TAB.ER.12H PO ×2 (07:35→20:22)
[2022-06-26] MEDS: Enoxaparin Sodium 40 MG/0.4 ML SYRINGE SUBCUT (07:36)
[2022-06-26] MEDS: Docusate Sodium 100 MG CAPSULE PO ×2 (07:37→20:23)
[2022-06-26 08:00] VITALS: BP 151/70; PULSE 88; RESP 14; TEMP 36; O2SAT 96
[2022-06-26 08:13] LABS: Glucose, Whole Blood 168 mg/dL (60-115)
--- NOTE | 2022-06-26 08:18 | P.PNOP_ITS ---
Subjective Subjective Date of Service: 06/26/22 Interval history: POD 2 s/p RT TKa no overnight events resting in bed, tolerating pain well denies sob, palpitations, cp Physical Exam Vital Signs: Vital Signs: Last Vital Signs Temp 96.8 F 06/26/22 08:00 Pulse 88 06/26/22 08:00 Resp 14 06/26/22 08:00 BP 151/70 H 06/26/22 08:00 Pulse Ox 96 06/26/22 08:00 O2 Del Method 06/26/22 08:00 O2 Flow Rate 2 06/24/22 14:36 BMI result Body Mass Index 35.2 Const: General: cooperative, healthy appearing and no acute distress Resp: Effort & Inspection: normal respiratory effort and able to speak in complete sentences Cardio: Rate: regular rate Peripheral pulses: Peripheral pulses 2+ throughout GI: Palpation (GI): Soft to palpation Skin: General skin exam: no rashes or lesions noted Extrem: Other: bandage clean dry and intact. Scottie intact. No erythema or joint effusion. Calf supple nontender. Neurovascularly intact. Procedures Date of Service Date of Service: 06/26/22 Progress Note: A&P Assessment and plan (1) S/P total knee arthroplasty: Status: Acute Assessment and Plan: * Continue pain mgmnt * continue lovenox for dvt ppx--resume Eliquis 06/27/22 * PT for LT TKA * Dispo planning-Pending PT eval, pain mgmnt Time Spent With Patient Time: Total time spent is greater than 50% in coordination of care (as documented) at patient's floor/unit and/or counseling patient: Quality Stroke Does the patient have a stroke diagnosis?: No VTE Prior VTE?: No VTE Risk Level:: Medical - moderate - high VTE Device Contraindication: N/A - Device Ordered VTE Drug Contraindication: N/A - Med Ordered
[2022-06-26] MEDS: Insulin Lispro 100 UNIT/ML 3 ML VIAL SUBCUT ×4 (08:21→20:21)
[2022-06-26] MEDS: Acetaminophen 325 MG TABLET 650 MG PO ×2 (10:31→18:05)
--- NOTE | 2022-06-26 10:40 | HO.PM.IMPN ---
Subjective Subjective Date of Service: 06/26/22 Interval History: Patient complaining of right knee pain after returning from physical therapy, denies fever chills, no headache no dizziness, denies nausea vomiting complaining of constipation no bowel movement since admission, feels very weak tired after the physical therapy session and requesting for rehab Review of Systems CVS no chest pain no palpitation Respiratory no cough, no shortness of breath Skin no rash Review of Systems: Yes all other systems are reviewed and are negative Physical Exam Vital Signs: Vital Signs: Last Vital Signs Temp 96.8 F 06/26/22 08:00 Pulse 88 06/26/22 08:00 Resp 14 06/26/22 08:00 BP 151/70 H 06/26/22 08:00 Pulse Ox 96 06/26/22 08:00 O2 Del Method 06/26/22 08:00 O2 Flow Rate 2 06/24/22 14:36 BMI result Body Mass Index 35.2 Const: Other: General awake alert x3, mild distress due to pain. Neck supple no JVD. CVS regular rate rhythm, Respiratory lungs clear to auscultation, no respiratory distress, no wheeze, no rhonchi. Gastrointestinal abdomen soft, nontender, bowel sounds audible, no guarding , no rigidity. Extremities no edema. Right knee dressing in place Neuro nonfocal , speech clear. Skin no rash Psych appropriate affect Objective Data Active Medications Acetaminophen (Acetaminophen 325 Mg Tablet) 650 mg PO Q6H PRN PRN Reason: Pain, Mild (Pain Scale 1-3) Last Admin: 06/26/22 10:31 Dose: 650 mg Documented By: BLANCA Celecoxib (Celecoxib 200 Mg Capsule) 200 mg PO BID [facility] Last Admin: 06/26/22 07:35 Dose: 200 mg Documented By: BLANCA Docusate Sodium (Docusate Sodium 100 Mg Capsule) 100 mg PO BID [facility] Last Admin: 06/26/22 07:37 Dose: 100 mg Documented By: BLANCA Enoxaparin Sodium (Enoxaparin Sodium 40 Mg/0.4 Ml Syringe) 40 mg SUBCUT Q24H [facility] Last Admin: 06/26/22 07:36 Dose: 40 mg Documented By: BLANCA Hydromorphone HCl (Hydromorphone Hcl 0.5 Mg/0.5 Ml Syringe) 0.25 mg IVPUSH Q4H PRN; Protocol PRN Reason: Pain, Severe (Pain Scale 7-10) Last Admin: 06/26/22 07:37 Dose: 0.25 mg Documented By: BLANCA Insulin Human Lispro (Insulin Lispro 100 Unit/Ml 3 Ml Vial) 0 unit SUBCUT QIDACHS [facility]; Protocol Last Admin: 06/26/22 08:21 Dose: 2 unit Documented By: BLANCA Lorazepam (Lorazepam 0.5 Mg Tablet) 0.5 mg PO BEDTIME PRN PRN Reason: Anxiety Last Admin: 06/24/22 22:49 Dose: 0.5 mg Documented By: SEBASTIAN Non-Formulary Medication (Brimonidine-Timolol [Combigan]) 1 drop EYE-BOTH BID [facility] Non-Formulary Medication (Dexlansoprazole [Dexilant]) 60 mg PO DAILY [facility] Ondansetron HCl (Ondansetron Hcl 4 Mg/2 Ml Vial) 4 mg IVPUSH Q8H PRN PRN Reason: Nausea and Vomiting Oxycodone HCl (Oxycodone Hcl Er 10 Mg Tab.Er.12h) 10 mg PO BID [facility] Last Admin: 06/26/22 07:35 Dose: 10 mg Documented By: BLANCA Oxycodone HCl (Oxycodone Hcl Immed Release 5 Mg Tablet) 10 mg PO Q4H PRN PRN Reason: Pain, Moderate (Pain Scale 4-6 Last Admin: 06/26/22 10:31 Dose: 10 mg Documented By: BLANCA Rifaximin (Rifaximin 550 Mg Tablet) 550 mg PO TID [facility] Last Admin: 06/26/22 07:35 Dose: 550 mg Documented By: BLANCA Sodium Chloride (0.9 % Sodium Chloride Flush 3 Ml Syringe) 3 ml IVFLUSH QSHIFT [facility] Last Admin: 06/26/22 07:37 Dose: 3 ml Documented By: BLANCA Labs CBC & Chem 7: 06/26/22 05:44 06/26/22 05:44 Labs: Laboratory Results - last 24 hr 06/25/22 06/25/22 06/25/22 11:10 15:43 20:03 MCV MCH MCHC RDW Plt Count MPV Immature Gran % (Auto) Neut % (Auto) Lymph % (Auto) [place] % (Auto) Eos % (Auto) Baso % (Auto) Lymph # (Auto) [place] # (Auto) Eos # (Auto) Baso # (Auto) Abs Immat Gran (auto) Absolute Neuts (auto) Absolute Nucleated RBC Nucleated RBC % (auto) Anion Gap Estim Creat Clear Calc Estimated GFR POC Glucose 166 H 217 H 141 H Fasting Glucose Calcium 06/26/22 06/26/22 06/26/22 05:44 05:44 08:04 MCV 94.4 MCH 31.4 MCHC 33.2 RDW 13.2 Plt Count 177 MPV 9.1 L Immature Gran % (Auto) 0.8 H Neut % (Auto) 72.6 Lymph % (Auto) 13.6 L [place] % (Auto) 11.6 H Eos % (Auto) 1.0 Baso % (Auto) 0.4 Lymph # (Auto) 1.1 L [place] # (Auto) 1.0 Eos # (Auto) 0.1 Baso # (Auto) 0.0 Abs Immat Gran (auto) 0.07 H Absolute Neuts (auto) 6.0 Absolute Nucleated RBC 0.000 Nucleated RBC % (auto) 0.0 Anion Gap 11 L Estim Creat Clear Calc 91.0 Estimated GFR > 60 POC Glucose 168 H Fasting Glucose 164 H Calcium 8.3 L Assessment and Plan (1) S/P total knee arthroplasty: Status: Acute Plan 52-year-old female with [id number] type 2 diabetes, hypertension, paroxysmal atrial fibrillation anticoagulated with Eliquis, chronic low back pain, uveitis and glaucoma, ibs on rifaximin, anxiety, osteoarthritis of the knees bilaterally, and GERD admitted to Orthopedics S/P right TKR with consult placed for medical managemen. #Osteoarthritis right knee s/p right TKR POD #2 Persistent pain, and has constipation -continue OxyContin 10 mg b.i.d., Celebrex 200 b.i.d., and as needed hydromorphone stable hematocrit Will add stool softeners, encourage incentive spirometry dispo plan as per Orthopedic surgery # [id number] type 2 diabetes- glucose reasonably controlled. -continue insulin sliding scale, take Trulicity at home -diabetic diet # atrial fibrillation-rate controlled -resume Eliquis as per Ortho -Not on rate control medication #HTN-few high blood pressure readings will resume valsartan 160 mg home dose 320 mg -resume valsartan tomorrow #IBS -continue rifaximin # anxiety -continue lorazepam # GERD -continue PPI # uveitis/glaucoma -continue home eye drops Thank you for this consult. Will continue to follow. Quality Stroke Does the patient have a stroke diagnosis?: No VTE Prior VTE?: No VTE Risk Level:: Medical - moderate - high VTE Device Contraindication: N/A - Device Ordered VTE Drug Contraindication: N/A - Med Ordered
[2022-06-26] MEDS: Lactulose 20 GM/30 ML SOLUTION 10 GM PO (11:34)
[2022-06-26 11:52] LABS: Glucose, Whole Blood 180 mg/dL (60-115)
[2022-06-26 12:00] VITALS: BP 114/60; PULSE 81; RESP 14; TEMP 35.9; O2SAT 100
--- NOTE | 2022-06-26 13:46 | MHC.CM.PN ---
THIS FARM IMPLEMENT MECHANIC ATTEMPTED TO MEET WITH PATIENT TO ASK ABOUT SNF CHOICES.TWO ATTEMPTS TO WAKE PATIENT WERE UNSUCCESSFUL ORIGINAL PLAN WAS HOME WITH SERVICES. CASE MANAGEMENT FOLLOWING FOR ACTUAL PLAN
[2022-06-26 15:57] VITALS: BP 128/56; PULSE 77; RESP 16; TEMP 35.8; O2SAT 100
[2022-06-26 16:12] LABS: Glucose, Whole Blood 182 mg/dL (60-115)
[2022-06-26 19:43] VITALS: BP 121/61; PULSE 85; RESP 18; TEMP 37.1; O2SAT 99
[2022-06-26 20:17] LABS: Glucose, Whole Blood 174 mg/dL (60-115)
[2022-06-26] MEDS: LORazepam 0.5 MG TABLET PO (20:22)
[2022-06-26] MEDS: Sennosides/Docusate Sodium TABLET 1 TAB PO (20:23)
[2022-06-26 23:11] VITALS: BP 142/66; PULSE 87; RESP 18; TEMP 36.6; O2SAT 98
[2022-06-27] VITALS (9 sets, daily range): BP systolic 115–151; BP diastolic 59–75; PULSE 90–130; RESP 17–18; TEMP 36.1–36.6; O2SAT 96–100
--- NOTE | 2022-06-27 | ECG_ITS ---
Test Reason : tachycardia Blood Pressure : / mmHG Vent. Rate : 103 BPM Atrial Rate : 103 BPM P-R Int : 186 ms QRS Dur : 088 ms QT Int : 348 ms P-R-T Axes : 052 -21 058 degrees QTc Int : 455 ms Sinus tachycardia Moderate voltage criteria for LVH, may be normal variant ( R in aVL , Arthur product ) Borderline ECG When compared with ECG of 19-JUN-2003 13:59, Vent. rate has increased BY 40 BPM Sinus Arrhythmia is no longer Present Referred By: Britney Lowry Electronically Signed By:LEXIE GONSALES MD
[2022-06-27] MEDS: Omeprazole 40 MG CAPSULE.DR PO (06:01)
[2022-06-27] MEDS: oxyCODONE HCl Immed Release 5 MG TABLET 10 MG PO ×3 (06:01→16:07)
[2022-06-27 07:12] LABS: Glucose, Whole Blood 147 mg/dL (60-115)
[2022-06-27 07:19] LABS: MANUAL DIFF FLAG NO
[2022-06-27 07:22] LABS: Basophils Percent Auto 0.4 % (0-2); Eosinophils Absolute Auto 0.2 X10*3/uL (0.0-0.4); Eosinophils Percent Auto 2.2 % (0-4); Hematocrit 32.9 % (37.0-47.0); Hemoglobin 11.2 g/dl (12.0-16.0); Imm Gran Abs Auto 0.05 X10*3/uL (0.00-0.03); Imm Gran Pct Auto 0.7 % (0.0-0.4); Lymphocytes Percent Auto 14.2 % (20-40); Mean Corpuscular Hemoglobin 32.3 pg (27.0-33.0); Mean Corpuscular Volume 94.8 fL (80.0-98.0); Mean Platelet Volume 9.1 fL (9.4-12.3); Monocytes Absolute Auto 0.8 X10*3/uL (0.1-1.2); Monocytes Percent Auto 10.3 % (2-11); Neutrophils Absolute Auto 5.2 x10*3/uL (2.0-8.3); Neutrophils Percent Auto 72.2 % (45-73); Platelet Count 190 X10*3/uL (160-400); Red Blood Count 3.47 X10*6/uL (4.20-5.50); Red Cell Distribution Width 13.2 % (11.0-16.0); White Blood Count 7.3 X10*3/uL (4.8-10.8)
[2022-06-27 07:51] LABS: Anion Gap 12 (12-20); Blood Urea Nitrogen 8 mg/dL (9-16); Calcium 8.6 mg/dL (8.4-10.2); Carbon Dioxide 27 mmol/L (22-29); Chloride 102 mmol/L (96-108); Creatinine Clr Calc Pharmacy 88.8; Estimated Glomerular Filt Rate > 60; Glucose Fasting 153 mg/dL (60-99); Potassium 4.1 mmol/L (3.3-5.1); Sodium 137 mmol/L (135-145)
--- NOTE | 2022-06-27 08:54 | MHC.CM.PN ---
PATIENT IS STATING THAT SHE WANTS TO GO HOME WITH SERVICES, AND NOT DC TO SNF. SHE IS ASKING TO STAY UNTIL TOMORROW, WHEN HER SON WILL BE AVAILABLE TO ASSIST. [facility] TO BE UPDATED WITH MD RESPONSES
[2022-06-27] MEDS: Valsartan 160 MG TABLET PO (09:12)
[2022-06-27] MEDS: Docusate Sodium 100 MG CAPSULE PO ×2 (09:12→20:05)
[2022-06-27] MEDS: HYDROmorphone HCl 1 MG/ML SYRINGE 0.25 MG IVPUSH (09:12)
[2022-06-27] MEDS: Apixaban 5 MG TABLET PO ×2 (09:12→20:05)
[2022-06-27] MEDS: Celecoxib 200 MG CAPSULE PO ×2 (09:13→20:05)
[2022-06-27] MEDS: oxyCODONE HCl ER 10 MG TAB.ER.12H PO ×2 (09:13→20:05)
[2022-06-27] MEDS: 0.9 % Sodium Chloride Flush 3 ML SYRINGE IVFLUSH ×3 (09:13→20:42)
[2022-06-27] MEDS: rifAXIMin 550 MG TABLET PO ×3 (09:13→20:04)
[2022-06-27 11:15] LABS: Glucose, Whole Blood 185 mg/dL (60-115)
[2022-06-27] MEDS: Insulin Lispro 100 UNIT/ML 3 ML VIAL SUBCUT ×3 (11:39→20:42)
--- NOTE | 2022-06-27 12:14 | MHC.CM.PN ---
PATIENT WILL DC HOME THURSDAY WITH NEW [facility] SERVICES. AGENCY MADE AWARE VIA [employer] IMM 06/27 IN CHART
--- NOTE | 2022-06-27 13:26 | HO.PM.IMPN ---
Subjective Subjective Date of Service: 06/27/22 Interval History: Complaining of persistent right knee pain but better since yesterday, participated with physical therapy this morning but became diaphoretic, heart rate went to 130 and gradually trended down to 100 Patient denies chest pain, no palpitations, no acute events overnight Review of Systems [employer] no headache no dizziness CVS no chest pain Respiratory no shortness of breath Review of Systems: Yes all other systems are reviewed and are negative Physical Exam Vital Signs: Vital Signs: Last Vital Signs Temp 97 F 06/27/22 11:00 Pulse 105 H 06/27/22 11:00 Resp 18 06/27/22 11:00 BP 116/60 06/27/22 11:00 Pulse Ox 100 06/27/22 11:00 O2 Del Method 06/27/22 11:00 O2 Flow Rate 2 06/24/22 14:36 BMI result Body Mass Index 35.2 Const: Other: General awake alert x3, no distress ? Neck supple no JVD. CVS? regular rate rhythm, Respiratory lungs clear to auscultation, no respiratory distress, no wheeze, no rhonchi. Gastrointestinal abdomen soft, nontender, bowel sounds audible, no guarding , no rigidity. Extremities no edema.? Right knee dressing in place Neuro nonfocal , speech clear. Skin no rash Psych appropriate affect Objective Data Active Medications Acetaminophen (Acetaminophen 325 Mg Tablet) 650 mg PO Q6H PRN PRN Reason: Pain, Mild (Pain Scale 1-3) Last Admin: 06/26/22 18:05 Dose: 650 mg Documented By: SEBASTIAN Apixaban (Apixaban 5 Mg Tablet) 5 mg PO BID [facility] Last Admin: 06/27/22 09:12 Dose: 5 mg Documented By: JEANETTE Celecoxib (Celecoxib 200 Mg Capsule) 200 mg PO BID [facility] Last Admin: 06/27/22 09:13 Dose: 200 mg Documented By: JEANETTE Docusate Sodium (Docusate Sodium 100 Mg Capsule) 100 mg PO BID [facility] Last Admin: 06/27/22 09:12 Dose: 100 mg Documented By: JEANETTE Hydromorphone HCl (Hydromorphone Hcl 1 Mg/Ml Syringe) 0.25 mg IVPUSH Q4H PRN; Protocol PRN Reason: Pain, Severe (Pain Scale 7-10) Last Admin: 06/27/22 09:12 Dose: 0.25 mg Documented By: JEANETTE Insulin Human Lispro (Insulin Lispro 100 Unit/Ml 3 Ml Vial) 0 unit SUBCUT QIDACHS [facility]; Protocol Last Admin: 06/27/22 11:39 Dose: 2 unit Documented By: JEANETTE Lorazepam (Lorazepam 0.5 Mg Tablet) 0.5 mg PO BEDTIME PRN PRN Reason: Anxiety Last Admin: 06/26/22 20:22 Dose: 0.5 mg Documented By: SEBASTIAN Non-Formulary Medication (Brimonidine-Timolol [Combigan]) 1 drop EYE-BOTH BID [facility] Omeprazole (Omeprazole 40 Mg Capsule.Dr) 40 mg PO DAILY@0630 [facility] Last Admin: 06/27/22 06:01 Dose: 40 mg Documented By: JOHN Ondansetron HCl (Ondansetron Hcl 4 Mg/2 Ml Vial) 4 mg IVPUSH Q8H PRN PRN Reason: Nausea and Vomiting Oxycodone HCl (Oxycodone Hcl Er 10 Mg Tab.Er.12h) 10 mg PO BID [facility] Last Admin: 06/27/22 09:13 Dose: 10 mg Documented By: JEANETTE Oxycodone HCl (Oxycodone Hcl Immed Release 5 Mg Tablet) 10 mg PO Q4H PRN PRN Reason: Pain, Moderate (Pain Scale 4-6 Last Admin: 06/27/22 11:39 Dose: 10 mg Documented By: JEANETTE Rifaximin (Rifaximin 550 Mg Tablet) 550 mg PO TID [facility] Last Admin: 06/27/22 09:13 Dose: 550 mg Documented By: JEANETTE Senna/Docusate Sodium (Sennosides/Docusate Sodium Tablet) 1 tab PO BEDTIME [facility] Last Admin: 06/26/22 20:23 Dose: 1 tab Documented By: SEBASTIAN Sodium Chloride (0.9 % Sodium Chloride Flush 3 Ml Syringe) 3 ml IVFLUSH QSHIFT [facility] Last Admin: 06/27/22 09:13 Dose: 3 ml Documented By: JEANETTE Valsartan (Valsartan 160 Mg Tablet) 160 mg PO DAILY [facility]; Protocol Last Admin: 06/27/22 09:12 Dose: 160 mg Documented By: JEANETTE Labs CBC & Chem 7: 06/27/22 06:43 06/27/22 06:43 Labs: Laboratory Results - last 24 hr 06/26/22 06/26/22 06/27/22 16:08 19:46 06:43 MCV 94.8 MCH 32.3 MCHC 34.0 RDW 13.2 Plt Count 190 MPV 9.1 L Immature Gran % (Auto) 0.7 H Neut % (Auto) 72.2 Lymph % (Auto) 14.2 L [place] % (Auto) 10.3 Eos % (Auto) 2.2 Baso % (Auto) 0.4 Lymph # (Auto) 1.0 L [place] # (Auto) 0.8 Eos # (Auto) 0.2 Baso # (Auto) 0.0 Abs Immat Gran (auto) 0.05 H Absolute Neuts (auto) 5.2 Absolute Nucleated RBC 0.000 Nucleated RBC % (auto) 0.0 Anion Gap Estim Creat Clear Calc Estimated GFR POC Glucose 182 H 174 H Fasting Glucose Calcium 06/27/22 06/27/22 06/27/22 06:43 07:04 11:00 MCV MCH MCHC RDW Plt Count MPV Immature Gran % (Auto) Neut % (Auto) Lymph % (Auto) [place] % (Auto) Eos % (Auto) Baso % (Auto) Lymph # (Auto) [place] # (Auto) Eos # (Auto) Baso # (Auto) Abs Immat Gran (auto) Absolute Neuts (auto) Absolute Nucleated RBC Nucleated RBC % (auto) Anion Gap 12 Estim Creat Clear Calc 88.8 Estimated GFR > 60 POC Glucose 147 H 185 H Fasting Glucose 153 H Calcium 8.6 Assessment and Plan (1) S/P total knee arthroplasty: Status: Acute Plan 52-year-old female with spn-bnugiii-lrqkwubqh type 2 diabetes, hypertension, paroxysmal atrial fibrillation anticoagulated with Eliquis, chronic low back pain, uveitis and glaucoma, ibs on rifaximin, anxiety, osteoarthritis of the knees bilaterally, and GERD admitted to Orthopedics S/P right TKR with consult placed for medical managemen. #Osteoarthritis right knee s/p right TKR POD #3 Better pain control continue OxyContin 10 mg b.i.d., Celebrex 200 b.i.d., will discontinue hydromorphone Hematocrit dropped but stable Continue stool softeners, encourage incentive spirometry dispo plan as per Orthopedic surgery, PT recommend short-term rehab Noted to have tachycardia with PT,EKG showed sinus tachycardia, likely due to deconditioning /pain. # nqu-[id number]-[id number] type 2 diabetes- glucose reasonably controlled. -blood sugar stable, continue insulin sliding scale, take Trulicity at home ,diabetic diet # atrial fibrillation-rate controlled, EKG showed normal sinus rhythm -resume Eliquis today as per Ortho -Not on rate control medication #HTN- -continue valsartan 160 mg, home dose 320 mg, BP stable on current dose #IBS -continue rifaximin # anxiety -continue lorazepam # GERD -continue PPI # uveitis/glaucoma -continue home eye drops Thank you for this consult. Will continue to follow. Quality Stroke Does the patient have a stroke diagnosis?: No VTE Prior VTE?: No VTE Risk Level:: Medical - moderate - high VTE Device Contraindication: N/A - Device Ordered VTE Drug Contraindication: N/A - Med Ordered
--- NOTE | 2022-06-27 15:34 | W.MHC.F2F ---
Service Date Service Date: 06/27/22 Encounter Date of encounter: 06/27/22 Reasons for Services Signs and symptoms assessed: right knee pain , swelling, difficulty with balance Reason for physical therapy: home safety and mobility, therapeutic exercises, restore joint function, gait/transfer training, ADL training and energy conservation Reason for occupational therapy: home safety and mobility, therapeutic exercises, restore joint function, gait/transfer training, ADL training and energy conservation Overseeing Care: Rob Donnelly Homebound: Leaving the home is medically contraindicated at this time without the asist of a device and/or another person due th the listed conditions above and below. Reason homebound: unsteady gait / fall risk, pain with ambulation, poor balance / fall risk and unable to drive Homebound supporting statement: Pt. is considered home bound due to recent surgery. Unable to drive, poor balance, poor gait mechanics. Certification: Based on the above findings, I certify that this patient is confined to the home and needs intermittent residential care, physical therapy and/or speech therapy, or continues to need occupational therapy. The patient is under my care, and I have initiated the establishment of the plan of care. The patient will be followed by a physician who will periodically review the plan of care.
[2022-06-27 15:52] LABS: Glucose, Whole Blood 187 mg/dL (60-115)
[2022-06-27] MEDS: Sennosides/Docusate Sodium TABLET 1 TAB PO (20:05)
[2022-06-27 20:06] LABS: Glucose, Whole Blood 176 mg/dL (60-115)
[2022-06-27] MEDS: LORazepam 0.5 MG TABLET PO (21:19)
[2022-06-28] MEDS: oxyCODONE HCl Immed Release 5 MG TABLET 10 MG PO ×3 (03:13→14:56)
[2022-06-28 03:37] VITALS: BP 138/65; PULSE 96; RESP 18; TEMP 36.7; O2SAT 98
[2022-06-28] MEDS: Omeprazole 40 MG CAPSULE.DR PO (05:58)
[2022-06-28 07:28] VITALS: BP 112/58; PULSE 86; RESP 17; TEMP 36.7; O2SAT 99
[2022-06-28 07:35] LABS: Glucose, Whole Blood 179 mg/dL (60-115)
[2022-06-28] MEDS: oxyCODONE HCl ER 10 MG TAB.ER.12H PO (08:10)
[2022-06-28] MEDS: Apixaban 5 MG TABLET PO (08:10)
[2022-06-28] MEDS: Docusate Sodium 100 MG CAPSULE PO (08:10)
[2022-06-28] MEDS: Celecoxib 200 MG CAPSULE PO (08:10)
[2022-06-28] MEDS: rifAXIMin 550 MG TABLET PO ×2 (08:11→14:56)
[2022-06-28] MEDS: 0.9 % Sodium Chloride Flush 3 ML SYRINGE IVFLUSH (08:11)
[2022-06-28] MEDS: Insulin Lispro 100 UNIT/ML 3 ML VIAL SUBCUT ×2 (08:11→11:43)
[2022-06-28] MEDS: Valsartan 160 MG TABLET PO (08:11)
[2022-06-28] MEDS: Milk of Magnesia 30 ML ORAL.SUSP PO (10:04)
[2022-06-28] MEDS: polyethylene glycoL 3350 17 GM POWD.PACK PO (10:04)
--- NOTE | 2022-06-28 10:40 | MHC.CM.PN ---
PT WILL DC HOME TODAY WITH [facility] FOR HOME PT [facility] WILL PROVIDE SOC ON THURSDAY FAMILY WILL TRANSPORT
[2022-06-28 11:33] LABS: Glucose, Whole Blood 156 mg/dL (60-115)
[2022-06-28 11:46] VITALS: BP 132/59; PULSE 86; RESP 18; TEMP 36.1; O2SAT 99
--- NOTE | 2022-06-28 11:48 | HO.PM.IMPN ---
Subjective Subjective Date of Service: 06/28/22 Interval History: patient seen and examined at bedside. She is complaining of constipation. Her pain is not well-controlled at the knee. She otherwise denies any chest pain, no shortness of breath, no abdominal pain nausea or vomiting, no urinary symptoms. No fever chills. No overnight event Review of Systems Review of Systems: Yes all other systems are reviewed and are negative Physical Exam Vital Signs: Vital Signs: Last Vital Signs Temp 96.9 F 06/28/22 11:46 Pulse 86 06/28/22 11:46 Resp 18 06/28/22 11:46 BP 132/59 L 06/28/22 11:46 Pulse Ox 99 06/28/22 11:46 O2 Del Method 06/28/22 11:46 O2 Flow Rate 2 06/24/22 14:36 BMI result Body Mass Index 35.2 Const: Other: patient alert and oriented x3, no acute distress Resp: Other: clear to auscultation bilaterally Cardio: Other: normal rate and rhythm GI: Other: abdomen is soft, nontender, no rebound or guarding Extrem: Other: right knee in Dylan wrap Objective Data Active Medications Acetaminophen (Acetaminophen 325 Mg Tablet) 650 mg PO Q6H PRN PRN Reason: Pain, Mild (Pain Scale 1-3) Last Admin: 06/26/22 18:05 Dose: 650 mg Documented By: SEBASTIAN Apixaban (Apixaban 5 Mg Tablet) 5 mg PO BID [facility] Last Admin: 06/28/22 08:10 Dose: 5 mg Documented By: TURNER Celecoxib (Celecoxib 200 Mg Capsule) 200 mg PO BID [facility] Last Admin: 06/28/22 08:10 Dose: 200 mg Documented By: TURNER Docusate Sodium (Docusate Sodium 100 Mg Capsule) 100 mg PO BID [facility] Last Admin: 06/28/22 08:10 Dose: 100 mg Documented By: TURNER Hydromorphone HCl (Hydromorphone Hcl 1 Mg/Ml Syringe) 0.25 mg IVPUSH Q4H PRN; Protocol PRN Reason: Pain, Severe (Pain Scale 7-10) Last Admin: 06/27/22 09:12 Dose: 0.25 mg Documented By: JEANETTE Insulin Human Lispro (Insulin Lispro 100 Unit/Ml 3 Ml Vial) 0 unit SUBCUT QIDACHS [facility]; Protocol Last Admin: 06/28/22 11:43 Dose: 2 unit Documented By: TURNER Lorazepam (Lorazepam 0.5 Mg Tablet) 0.5 mg PO BEDTIME PRN PRN Reason: Anxiety Last Admin: 06/27/22 21:19 Dose: 0.5 mg Documented By: IZZY Non-Formulary Medication (Brimonidine-Timolol [Combigan]) 1 drop EYE-BOTH BID [facility] Omeprazole (Omeprazole 40 Mg Capsule.Dr) 40 mg PO DAILY@0630 [facility] Last Admin: 06/28/22 05:58 Dose: 40 mg Documented By: IZZY Ondansetron HCl (Ondansetron Hcl 4 Mg/2 Ml Vial) 4 mg IVPUSH Q8H PRN PRN Reason: Nausea and Vomiting Oxycodone HCl (Oxycodone Hcl Er 10 Mg Tab.Er.12h) 10 mg PO BID [facility] Last Admin: 06/28/22 08:10 Dose: 10 mg Documented By: TURNER Oxycodone HCl (Oxycodone Hcl Immed Release 5 Mg Tablet) 10 mg PO Q4H PRN PRN Reason: Pain, Moderate (Pain Scale 4-6 Last Admin: 06/28/22 08:10 Dose: 10 mg Documented By: TURNER Polyethylene Glycol (Polyethylene Glycol 3350 17 Gm Powd.Pack) 17 gm PO DAILY [facility] Last Admin: 06/28/22 10:04 Dose: 17 gm Documented By: TURNER Rifaximin (Rifaximin 550 Mg Tablet) 550 mg PO TID [facility] Last Admin: 06/28/22 08:11 Dose: 550 mg Documented By: TURNER Senna/Docusate Sodium (Sennosides/Docusate Sodium Tablet) 1 tab PO BEDTIME [facility] Last Admin: 06/27/22 20:05 Dose: 1 tab Documented By: IZZY Sodium Chloride (0.9 % Sodium Chloride Flush 3 Ml Syringe) 3 ml IVFLUSH QSHIFT [facility] Last Admin: 06/28/22 08:11 Dose: 3 ml Documented By: TURNER Valsartan (Valsartan 160 Mg Tablet) 160 mg PO DAILY [facility]; Protocol Last Admin: 11/12/22 08:11 Dose: 160 mg Documented By: TURNER Labs CBC & Chem 7: 06/27/22 06:43 06/27/22 06:43 Labs: Laboratory Results - last 24 hr 06/27/22 06/27/22 06/28/22 15:18 19:50 07:19 POC Glucose 187 H 176 H 179 H 06/28/22 11:14 POC Glucose 156 H Assessment and Plan (1) S/P total knee arthroplasty: Status: Acute (2) Constipation: Status: Acute Plan 52-year-old female with [id number] type 2 diabetes, hypertension, paroxysmal atrial fibrillation anticoagulated with Eliquis, chronic low back pain, uveitis and glaucoma, ibs on rifaximin, anxiety, osteoarthritis of the knees bilaterally, and GERD admitted to Orthopedics S/P right TKR with consult placed for medical managemen. #Osteoarthritis right knee s/p right TKR POD #4 - pain control per Orthopedic surgery - at this time patient on doxycycline, Celebrex- - stable hematocrit - management per orthopedic team - physical therapy recommend short-term rehab - encourage incentive spirometry # constipation - likely worsened by pain control - will add MiraLax daily, p.r.n. milk of magnesia, Dulcolax, - physical exam shows soft abdomen with no tenderness, no rebound or guarding - monitor bowel movements # sinus tachycardia - no recurrence - was noted to be tachycardic with PT, EKG shows sinus tachycardia, likely due to pain and deconditioning # [id number] type 2 diabetes- glucose reasonably controlled. -blood sugar stable, continue insulin sliding scale, take Trulicity at home ,diabetic diet # atrial fibrillation-rate controlled, EKG showed normal sinus rhythm -resume Eliquis today as per Ortho -Not on rate control medication - recommend follow-up with Cardiology outpatient #HTN- -continue valsartan 160 mg, home dose 320 mg, BP stable on current dose #IBS -continue rifaximin # anxiety -continue lorazepam # GERD -continue PPI # uveitis/glaucoma -continue home eye drops Thank you for this consult. Will continue to follow along with the orthopedic team Quality Stroke Does the patient have a stroke diagnosis?: No VTE Prior VTE?: No VTE Risk Level:: Medical - moderate - high VTE Device Contraindication: N/A - Device Ordered VTE Drug Contraindication: N/A - Med Ordered
== END 2022-06-28 16:27 | disposition home health service (06) | DRG 470 ==
LOC: HO.SSS 05:41 → HO.SSSA 06:05 → HO.S3 14:40
PROVIDERS: Admitting Provider Physician Assistant; PCP Family Medicine; Visit Provider Orthopaedic Surgery
PROC: 0SRC0JA Replacement of Right Knee Joint with Synthetic Substitute, Uncemented, Open Approach (ICD-10-PCS; CPT 27447; principal; 2022-06-24 07:30)
DX: M17.11 Unilateral primary osteoarthritis, right knee (principal); H20.9 Unspecified iridocyclitis; F41.9 Anxiety disorder, unspecified; N26.1 Atrophy of kidney (terminal); I48.0 Paroxysmal atrial fibrillation; E11.9 Type 2 diabetes mellitus without complications; I10 Essential (primary) hypertension; M54.50 Low back pain, unspecified; K21.9 Gastro-esophageal reflux disease without esophagitis; K59.03 Drug induced constipation; K58.9 Irritable bowel syndrome, unspecified; T39.95XA Adverse effect of unspecified nonopioid analgesic, antipyretic and antirheumatic, initial encounter; H40.9 Unspecified glaucoma; G89.29 Other chronic pain; Z20.822 Contact with and (suspected) exposure to COVID-19; Z88.1 Allergy status to other antibiotic agents; Z88.8 Allergy status to other drugs, medicaments and biological substances; Z79.01 Long term (current) use of anticoagulants; Z79.899 Other long term (current) drug therapy
CPT/HCPCS: 27447; 36415; 73560; 80048; 82947; 85014; 85018; 85025; 86850; 86900; 86901; 87635; 87640; 87641; 88305; 88311; 93005; 97110; 97116; 97161; 97530; C1776; J0690; J1100; J1170; J1650; J2250; J2405; J2795; J3010

== ENCOUNTER → 2022-07-14 11:22 | Outpatient (BNVA) | payer MEDICARE, MEDICAID, SELFPAY | PROVIDERS: PCP Family Medicine; Visit Provider Physician Assistant | DX: Z47.1 Aftercare following joint replacement surgery (principal); Z96.651 Presence of right artificial knee joint | CPT/HCPCS: 99212 ==

== ENCOUNTER → 2022-08-08 13:20 | Outpatient (BNVA) | payer MEDICARE, MEDICAID, SELFPAY | PROVIDERS: PCP Family Medicine; Visit Provider Physician Assistant | DX: Z13.89 Encounter for screening for other disorder (principal) | CPT/HCPCS: 99212 ==

== ENCOUNTER 2022-09-05 22:45 | Emergency (ER) | payer MEDICARE, MEDICAID, SELFPAY ==
--- NOTE | ~2022-09-05 | XR_ITS ---
EXAMINATION: XR KNEE, RIGHT CLINICAL INFORMATION: Pain and swelling. COMPARISON: 06/24/2022 TECHNIQUE: Two views of the right knee. FINDINGS: Status post right knee replacement. No acute abnormality. No fracture. No dislocation. There is fullness in the suprapatellar region may be due to swelling or effusion. XR/XR knee RT 2V IMPRESSION: 1. Status post right knee replacement. No acute osseous abnormality. 2. Soft tissue fullness in the suprapatellar region.
[2022-09-05 22:48] VITALS: BP 147/75; PULSE 90; RESP 18; TEMP 36.9; O2SAT 100; BMI 31.9
[2022-09-05 23:27] VITALS: BP 149/68; PULSE 74; RESP 13; O2SAT 98
--- NOTE | 2022-09-05 23:42 | PC.NURSE ---
pt AOx4 c/o pain to R leg after knee surg on 06/24/22 pain began about a week ago h/o afib, htn pt takes celebrex and eliquis, provider aware
--- NOTE | 2022-09-05 23:43 | PC.NURSE ---
pt feels like she does not feel like herself and feels unwell
--- NOTE | 2022-09-05 23:46 | ED_ITS ---
HPI - Extremity Problem General Chief complaint: Extremity Problem Stated complaint: ?Infection on R knee Time Seen by Provider: 09/05/22 23:35 Source: patient Mode of arrival: ambulatory Limitations: no limitations History of Present Illness HPI Narrative: Patient comes emergency room complaining of right-sided knee pain. Patient had a total right knee replacement on 06/24/2022. Patient has been going to physical therapy. Patient states that doing an exercise which requires a roller roll under her right knee worsened the pain. Patient is able to walk but is very painful, is able to flex and extend the knee but hurts doing so. Top of the knee looks more swollen than usual. Patient denies any calf pain, no lower extremity swelling other than around the knee. Patient is on Eliquis for atrial fibrillation which was diagnosed around the time of her surgery. Patient states she is compliant with her medication. Also, patient states that she is taking celecoxib or sometimes oxycodone for pain. Related Data Home Medications Medication Instructions Recorded Confirmed brimonidine 0.2 %-timolol 0.5 % 1 drp ophthalmic (eye) BID 08/22/20 06/19/22 eye drops (Combigan) dexlansoprazole 60 mg 60 mg PO DAILY 08/22/20 06/19/22 capsule,biphase delayed release (Dexilant) cholecalciferol (vitamin D3) 25 25 mcg PO DAILY 03/18/22 06/19/22 mcg (1,000 unit) capsule sennosides 8.6 mg capsule (senna) 8.6 mg PO DAILY PRN Constipation 03/18/22 06/19/22 lorazepam 0.5 mg tablet 0.5 mg PO BEDTIME PRN Anxiety 05/14/22 06/19/22 dulaglutide 0.75 mg/0.5 mL 0.75 mg subcut QWEEK 06/02/22 06/19/22 subcutaneous pen injector (Trulicity) valsartan 160 mg tablet (Diovan) 320 mg PO DAILY 06/13/22 06/19/22 Lactobacillus acidophilus and 1 cap PO DAILY 06/18/22 06/19/22 rhamnosus 15 billion cell capsule (Probiotic) ascorbic acid (vitamin C) 1,000 mg 1,000 mg PO DAILY 06/18/22 06/19/22 tablet (Vitamin C) methylcellulose (laxative) 500 mg 500 mg PO BID PRN Constipation 06/18/22 06/19/22 tablet (Citrucel) multivitamin 1 tab PO DAILY 06/18/22 06/19/22 ferrous sulfate 325 mg (65 mg 325 mg PO DAILY 06/19/22 06/24/22 iron) tablet (iron) Previous Rx's Medication Instructions Recorded tramadol 50 mg tablet 50 mg PO Q6H #120 tabs 03/15/21 rifaximin 550 mg tablet 550 mg PO TID 2 weeks #42 tabs 06/02/22 apixaban 5 mg tablet (Eliquis) 5 mg PO BID #60 tabs 06/13/22 walker #1 ea 06/19/22 acetaminophen 325 mg tablet 650 mg PO Q6H PRN Pain, Mild (Pain 06/26/22 Scale 1-3) 30 days #240 tabs oxycodone 10 mg tablet 10 mg PO Q6H PRN pain 7 days #42 06/28/22 tabs commode #1 ea 07/01/22 oxycodone 5 mg tablet 5 mg PO Q6H PRN pain 7 days #28 08/08/22 tabs celecoxib 200 mg capsule 200 mg PO BID #60 caps 08/27/22 oxycodone 5 mg tablet 5 mg PO BID PRN pain #10 tabs 09/06/22 Allergies Allergy/AdvReac Type Severity Reaction Status Date / Time CARLITOS Inhibitors Allergy Severe COUGH Verified 08/08/22 13:28 [CARLITOS INHIBITORS] rifampin [RIFAMPIN] Allergy Severe MUSCLE Verified 08/08/22 13:28 ACHE,PAINS simvastatin [SIMVASTATIN] Allergy Severe MUSCLE, Verified 08/08/22 13:28 muscle px ibuprofen Allergy Unknown kidney Verified 08/08/22 13:28 disease ciprofloxacin [From CIPRO] AdvReac Unknown NAUSEA/VOMI Verified 08/08/22 13:28 TING Review of Systems Review of Systems: Constitutional : No Weight loss, No Fever, No Chills, No Night Sweats, No Fatigue, No Malaise ENT/Mouth : No Hearing loss, No Ear Pain, No Nasal Congestion, No Sinus Pain, No Hoarseness, No sore throat, No Rhinorrhea, No Swallowing Difficulty Eyes: No Eye Pain, No Swelling, No Redness, No Foreign Body, No Discharge, No Vision Changes Cardiovascular : No Chest Pain, No SOB, No Dyspnea on Exertion, No Orthopnea, No Edema, No Palpitations Respiratory : No Cough, No Sputum, No Wheezing, No Smoke Exposure, No Dyspnea Gastrointestinal : No Nausea, No Vomiting, No Diarrhea, No Constipation, No abdominal Pain, No Hematochezia, No Melena Genitourinary : no irregular bleeding, No Dysuria, No Urinary Frequency, No Hematuria, No Urinary Incontinence, No Urgency, No Flank Pain, No Urinary Flow Changes, No Hesitancy Musculoskeletal : Complaining of acute on chronic right knee pain and peripatellar swelling No Myalgias, No Joint Swelling Skin : No Skin Lesions, No rash Neuro : No Weakness, No Numbness, No Paresthesias, No Loss of Consciousness, No Dizziness, No Headache Psych : No Anxiety/Panic, No Depression, No SI/HI/AH/VH, No Social Issues, Heme/Lymph: No Bruising, No Bleeding,No Lymphadenopathy Endocrine : No Polyuria, No Polydipsia, No Temperature Intolerance PMFSH Past Medical History Medical History Anxiety Atrophic kidney Bradycardia Constipation Depression Diabetes mellitus Fibromyalgia Hypertension Latent tuberculosis Osteoarthritis of right knee PAF (paroxysmal atrial fibrillation) Polyarthralgia Positive TB test Primary osteoarthritis of knees, bilateral Psoriasis Uveitis Surgical History History of eye surgery History of partial hysterectomy Hx of cholecystectomy Hx of right knee surgery Hx of tooth extraction Hx of tubal ligation Family History Family History Father Diabetes COPD (chronic obstructive pulmonary disease) Asthma Mother HTN (hypertension) Arthritis Hyperlipemia Social History Social History Household Members: Family Housing: House Are you a primary healthcare management consultant to a significant other at home: No Alcohol intake: current Alcohol intake frequency: a few times a month Alcohol type: beer, wine and hard liquor Patient Tobacco Use Status: Never used Tobacco Second Hand Smoke Exposure: No Advance Directives: No Advance Directives Information Provided: No Patient : No service: No Current occupational status: employed Current occupation: MA Physical Exam 2 Vital Signs: Vital Signs: Last Vital Signs Temp 98.5 F 09/05/22 22:48 Pulse 74 09/05/22 23:27 Resp 13 09/05/22 23:27 BP 149/68 H 09/05/22 23:27 Pulse Ox 98 09/05/22 23:27 O2 Del Method 09/05/22 23:27 BMI result Body Mass Index 31.9 Const: Other: Appearance: Alert. Oriented X3. No acute distress. Eyes: Pupils equal, round and reactive to light. ENT: Pharynx normal. Neck: Normal inspection. Neck supple. No lymph nodes noted. No crepitus CVS: Normal heart rate and rhythm. Pulses normal. Normal S1 and S2 Respiratory: No respiratory distress. Breath sounds normal. No Wheezing. No rales Abdomen: Soft and nontender. No rigidity. No distention. Skin: Skin warm and dry. Normal skin color. Normal skin turgor. Extremities: No lower extremity edema. Swelling above the patella, possible small joint effusion. No additional warmth to palpation, incision scar looks clean, no erythema or pus drainage Neuro: Oriented X 3. No motor deficit. No sensory deficit. Moving all extremities. No slurred speech. CN 2 through 12 grossly intact Psych: calm, cooperative, normal affect Course Course Course Narrative: -physical exam is fairly benign, patient able to flex and extend the knee, no significant pain to palpation, mild swelling noted in the patellar area. -no fever no chills, normal blood pressure, unlikely to be a septic joint -of patient's labs pending -patient is on Eliquis, I discussed with the patient that he would be best to discontinue taking celecoxib as this would increase it risk bleeding. Patient has several oxycodone tablets for which she uses p.r.n. severe pain. Medical Decision Making Medical Decision Making [facility] Narrative: Patient does not have any significant pain in the actual joint, has limited range of motion but no pain. ESR CRP mildly elevated but not enough to suspect septic joint. White blood cell count within normal limits, normal vitals. Patient likely has musculoskeletal pain and a bit of swelling exacerbated by physical therapy. - Lab Data [facility] Lab Attestation statement: I reviewed the patient's lab results. 09/05/22 23:48 09/05/22 23:48 Labs: Lab Results 09/05/22 09/05/22 09/05/22 Range/Units 23:48 23:48 23:48 WBC 5.4 (4.8-10.8) X10*3/uL RBC 4.27 D (4.20-5.50) X10*6/uL Hgb 13.2 (12.0-16.0) g/dl Hct 39.7 D (37.0-47.0) % MCV 93.0 (80.0-98.0) fL MCH 30.9 (27.0-33.0) pg MCHC 33.2 (31.0-35.0) g/dl RDW 13.6 (11.0-16.0) % Plt Count 254 D (160-400) X10*3/uL MPV 9.1 L (9.4-12.3) fL Immature Gran % (Auto) 0.2 (0.0-0.4) % Neut % (Auto) 56.1 (45-73) % Lymph % (Auto) 29.1 (20-40) % [place] % (Auto) 11.5 H (2-11) % Eos % (Auto) 2.2 (0-4) % Baso % (Auto) 0.9 (0-2) % Lymph # (Auto) 1.6 (1.2-4.9) X10*3/uL [place] # (Auto) 0.6 (0.1-1.2) X10*3/uL Eos # (Auto) 0.1 (0.0-0.4) X10*3/uL Baso # (Auto) 0.1 (0.0-0.2) X10*3/uL Abs Immat Gran (auto) 0.01 (0.00-0.03) X10*3/uL Absolute Neuts (auto) 3.0 (2.0-8.3) x10*3/uL Absolute Nucleated RBC 0.000 (0.0-0.012) X10*3/uL Nucleated RBC % (auto) 0.0 (0.0-0.2) /100WBC ESR (0-20) MM/HR PT (10.0-13.1) SEC INR (0.9-1.1) APTT 35.9 (26.0-36.4) SEC Sodium 139 (135-145) mmol/L Potassium 3.7 (3.3-5.1) mmol/L Chloride 103 (96-108) mmol/L Carbon Dioxide 28 (22-29) mmol/L Anion Gap 12 (12-20) BUN 10 (9-16) mg/dL Creatinine 1.09 (0.5-1.4) mg/dL Estim Creat Clear Calc 65.0 Estimated GFR 53 Random Glucose 133 H (60-115) mg/dL Calcium 10.1 D (8.4-10.2) mg/dL Total Bilirubin 0.4 (0.0-1.0) mg/dL Direct Bilirubin 0.2 (0.0-0.5) mg/dL AST 22 (5-31) U/L ALT 17 (0-31) U/L Alkaline Phosphatase 81 (39-117) U/L C-Reactive Protein 1.40 H (< or = 0.50) mg/dL Total Protein 7.9 (6.5-8.0) g/dL Albumin 4.3 (3.5-5.0) g/dL 09/05/22 09/05/22 Range/Units 23:48 23:48 WBC (4.8-10.8) X10*3/uL RBC (4.20-5.50) X10*6/uL Hgb (12.0-16.0) g/dl Hct (37.0-47.0) % MCV (80.0-98.0) fL MCH (27.0-33.0) pg MCHC (31.0-35.0) g/dl RDW (11.0-16.0) % Plt Count (160-400) X10*3/uL MPV (9.4-12.3) fL Immature Gran % (Auto) (0.0-0.4) % Neut % (Auto) (45-73) % Lymph % (Auto) (20-40) % [place] % (Auto) (2-11) % Eos % (Auto) (0-4) % Baso % (Auto) (0-2) % Lymph # (Auto) (1.2-4.9) X10*3/uL [place] # (Auto) (0.1-1.2) X10*3/uL Eos # (Auto) (0.0-0.4) X10*3/uL Baso # (Auto) (0.0-0.2) X10*3/uL Abs Immat Gran (auto) (0.00-0.03) X10*3/uL Absolute Neuts (auto) (2.0-8.3) x10*3/uL Absolute Nucleated RBC (0.0-0.012) X10*3/uL Nucleated RBC % (auto) (0.0-0.2) /100WBC ESR 26 H (0-20) MM/HR PT 17.9 H (10.0-13.1) SEC INR 1.5 H (0.9-1.1) APTT (26.0-36.4) SEC Sodium (135-145) mmol/L Potassium (3.3-5.1) mmol/L Chloride (96-108) mmol/L Carbon Dioxide (22-29) mmol/L Anion Gap (12-20) BUN (9-16) mg/dL Creatinine (0.5-1.4) mg/dL Estim Creat Clear Calc Estimated GFR Random Glucose (60-115) mg/dL Calcium (8.4-10.2) mg/dL Total Bilirubin (0.0-1.0) mg/dL Direct Bilirubin (0.0-0.5) mg/dL AST (5-31) U/L ALT (0-31) U/L Alkaline Phosphatase (39-117) U/L C-Reactive Protein (< or = 0.50) mg/dL Total Protein (6.5-8.0) g/dL Albumin (3.5-5.0) g/dL Independent Interpretation I performed an independent interpretation of an: Plain X-Ray Interpretation: My interpretation, normal alignment of the knee, no dislocation or fracture Radiology Impression Discussion of test interpretation with radiology: I have reviewed the radiologist's reading. Radiologist Impression: COMPARISON: 06/24/2022? TECHNIQUE: Two views of the right knee. FINDINGS: Status post right knee replacement. No acute abnormality. No fracture. No dislocation. There is fullness in the suprapatellar region may be due to swelling or effusion. XR/XR knee RT 2V IMPRESSION: 1.? Status post right knee replacement. No acute osseous abnormality. 2.? Soft tissue fullness in the suprapatellar region. ? Discharge Plan Discharge Clinical Impression: Postoperative pain of knee Patient Disposition: Home, Self-Care Instructions: Patellofemoral Pain Syndrome Exercises (ED) Additional Instructions: Please follow-up with your primary care physician tomorrow. If you have any worsening or new symptoms, please return to the emergency room or call 911 Prescriptions: New oxycodone 5 mg tablet 5 mg PO BID PRN (Reason: pain) Qty: 10 0RF Rx Instructions: Partial Fill upon patient request. No Action tramadol 50 mg tablet 50 mg PO Q6H Qty: 120 3RF (DME) walker Misc See Rx Instructions .MEDSUPPLY Qty: 1 0RF Rx Instructions: Folding Front wheeled walker (DME) commode Kit See Rx Instructions .Route Qty: 1 0RF Rx Instructions: As directed celecoxib 200 mg capsule 200 mg PO BID Qty: 60 0RF multivitamin Tablet 1 tab PO DAILY ascorbic acid (vitamin C) [Vitamin C] 1,000 mg Tablet 1,000 mg PO DAILY Probiotic 15 billion cell Capsule 1 cap PO DAILY Citrucel 500 mg tablet 500 mg PO BID PRN (Reason: Constipation) acetaminophen 325 mg Tablet 650 mg PO Q6H PRN (Reason: Pain, Mild (Pain Scale 1-3)) 30 Days Qty: 240 0RF oxycodone 10 mg tablet 10 mg PO Q6H PRN (Reason: pain) 7 Days Qty: 42 0RF Rx Instructions: Partial Fill upon patient request. Combigan 0.2-0.5 % drops 1 drp ophthalmic (eye) BID Dexilant 60 mg capsule,biphase delayed releas 60 mg PO DAILY valsartan [Diovan] 160 mg tablet 320 mg PO DAILY lorazepam 0.5 mg tablet 0.5 mg PO BEDTIME PRN (Reason: Anxiety) oxycodone 5 mg tablet 5 mg PO Q6H PRN (Reason: pain) 7 Days Qty: 28 0RF Rx Instructions: Partial Fill upon patient request. Trulicity 0.75 mg/0.5 mL pen injector 0.75 mg subcut QWEEK rifaximin 550 mg tablet 550 mg PO TID 14 Days Qty: 42 0RF cholecalciferol (vitamin D3) 25 mcg (1,000 unit) capsule 25 mcg PO DAILY senna 8.6 mg capsule 8.6 mg PO DAILY PRN (Reason: Constipation) ferrous sulfate [iron] 325 mg (65 mg iron) tablet 325 mg PO DAILY Eliquis 5 mg tablet 5 mg PO BID Qty: 60 5RF Label Comments: will start after surgery Rx Instructions: Blood thinner for atrial fibrillation. To start when directed post total knee replacement. Take 1 tablet twice daily
[2022-09-05 23:58] LABS: MANUAL DIFF FLAG NO
--- NOTE | 2022-09-05 23:59 | PC.NURSE ---
labs collected and sent to lab asked pt to obtain urine specimen, pt requested water-given, waiting on specimen to be collected IV access est 20 g L AC
[2022-09-06] LABS: Basophils Absolute Auto 0.1 X10*3/uL (0.0-0.2); Basophils Percent Auto 0.9 % (0-2); Eosinophils Absolute Auto 0.1 X10*3/uL (0.0-0.4); Eosinophils Percent Auto 2.2 % (0-4); Hematocrit 39.7 % (37.0-47.0); Hemoglobin 13.2 g/dl (12.0-16.0); Imm Gran Abs Auto 0.01 X10*3/uL (0.00-0.03); Imm Gran Pct Auto 0.2 % (0.0-0.4); Lymphocytes Absolute Auto 1.6 X10*3/uL (1.2-4.9); Lymphocytes Percent Auto 29.1 % (20-40); Mean Corpuscular HGB Conc 33.2 g/dl (31.0-35.0); Mean Corpuscular Hemoglobin 30.9 pg (27.0-33.0); Mean Platelet Volume 9.1 fL (9.4-12.3); Monocytes Absolute Auto 0.6 X10*3/uL (0.1-1.2); Monocytes Percent Auto 11.5 % (2-11); Neutrophils Percent Auto 56.1 % (45-73); Platelet Count 254 X10*3/uL (160-400); Red Blood Count 4.27 X10*6/uL (4.20-5.50); Red Cell Distribution Width 13.6 % (11.0-16.0); White Blood Count 5.4 X10*3/uL (4.8-10.8)
[2022-09-06 00:07] LABS: INTERNATIONAL NORM RATIO 1.5 (0.9-1.1); Prothrombin Time 17.9 SEC (10.0-13.1)
[2022-09-06 00:09] LABS: Partial Thromboplastin Time 35.9 SEC (26.0-36.4)
[2022-09-06 00:21] LABS: Alanine Aminotransferase 17 U/L (0-31); Albumin Level 4.3 g/dL (3.5-5.0); Alkaline Phosphatase 81 U/L (39-117); Anion Gap 12 (12-20); Aspartate Amino Transferase 22 U/L (5-31); Bilirubin Direct 0.2 mg/dL (0.0-0.5); Bilirubin Total 0.4 mg/dL (0.0-1.0); Blood Urea Nitrogen 10 mg/dL (9-16); Calcium 10.1 mg/dL (8.4-10.2); Carbon Dioxide 28 mmol/L (22-29); Chloride 103 mmol/L (96-108); Estimated Glomerular Filt Rate 53; Glucose Random 133 mg/dL (60-115); Potassium 3.7 mmol/L (3.3-5.1); Sodium 139 mmol/L (135-145); Total Protein 7.9 g/dL (6.5-8.0)
[2022-09-06 00:40] LABS: Erythrocyte Sedimentation Rate 26 MM/HR (0-20)
--- NOTE | 2022-09-06 01:26 | PC.NURSE ---
Discharge instructions given and explained, all of pt's questions answered, ambulates safely/independently, no apparent distress, alert and oriented; iv cath tip intact upon removal
== END 2022-09-06 01:27 | disposition home or self-care (01) ==
PROVIDERS: Emergency Provider Emergency Medicine; PCP Family Medicine
DX: G89.18 Other acute postprocedural pain (principal); M25.561 Pain in right knee; I48.91 Unspecified atrial fibrillation; Z96.651 Presence of right artificial knee joint; Z79.01 Long term (current) use of anticoagulants; Z79.899 Other long term (current) drug therapy
CPT/HCPCS: 36415; 73560; 80048; 80076; 85025; 85610; 85652; 85730; 86140; 99283; 99284

== ENCOUNTER → 2022-09-11 13:17 | Outpatient (BNVA) | payer MEDICARE, MEDICAID, SELFPAY | PROVIDERS: PCP Family Medicine; Referring Provider Family Medicine; Visit Provider Internal Medicine Cardiovascular Disease | DX: I48.0 Paroxysmal atrial fibrillation (principal); I10 Essential (primary) hypertension | CPT/HCPCS: 99212 ==

== ENCOUNTER 2022-09-22 11:16 | Outpatient (REF) | payer MEDICARE, MEDICAID, SELFPAY | END 2022-09-22 11:17 | disposition home or self-care (01) | LOC: HO.HOSX 11:16 | PROVIDERS: Visit Provider Orthopaedic Surgery | DX: Z13.89 Encounter for screening for other disorder (principal) ==

== ENCOUNTER 2022-09-25 13:08 | Outpatient (REF) | payer MEDICARE, MEDICAID, SELFPAY ==
--- NOTE | ~2022-09-25 | XR_ITS ---
EXAMINATION: XR KNEE, RIGHT XR KNEE AP STANDING, BILATERAL CLINICAL INFORMATION: Pain. COMPARISON: None TECHNIQUE: Lateral and axial views of the right knee are submitted. AP bilateral standing view of the knees was obtained. FINDINGS: Prosthetic components of the right total knee arthroplasty are appropriately aligned without periprosthetic fracture or abnormal lucency. No component migration. No joint effusion. There is mild asymmetric narrowing of the medial joint space compartment of the left knee, with peripheral osteophyte formation. The lateral joint space compartment is well-maintained. No significant varus or valgus configuration is noted bilaterally. XR/XR knee standing BI IMPRESSION: 1. Appropriate alignment of the right total knee arthroplasty, without evidence of complications. 2. There is mild osteoarthritic change of the medial joint space compartment of the left knee.
--- NOTE | ~2022-09-25 | XR_ITS ---
EXAMINATION: XR KNEE, RIGHT XR KNEE AP STANDING, BILATERAL CLINICAL INFORMATION: Pain. COMPARISON: None TECHNIQUE: Lateral and axial views of the right knee are submitted. AP bilateral standing view of the knees was obtained. FINDINGS: Prosthetic components of the right total knee arthroplasty are appropriately aligned without periprosthetic fracture or abnormal lucency. No component migration. No joint effusion. There is mild asymmetric narrowing of the medial joint space compartment of the left knee, with peripheral osteophyte formation. The lateral joint space compartment is well-maintained. No significant varus or valgus configuration is noted bilaterally. XR/XR knee RT 2V IMPRESSION: 1. Appropriate alignment of the right total knee arthroplasty, without evidence of complications. 2. There is mild osteoarthritic change of the medial joint space compartment of the left knee.
== END 2022-09-25 13:09 | disposition home or self-care (01) ==
LOC: HO.HOSX 13:08
PROVIDERS: Visit Provider Orthopaedic Surgery
DX: Z96.651 Presence of right artificial knee joint (principal)
CPT/HCPCS: 73560; 73565; 99212

== ENCOUNTER → 2022-09-29 13:05 | Outpatient (BNVA) | payer MEDICARE, MEDICAID, SELFPAY | PROVIDERS: PCP Family Medicine; Visit Provider Internal Medicine Gastroenterology | DX: Z13.89 Encounter for screening for other disorder (principal) ==

== ENCOUNTER 2022-09-30 07:23 | Day surgery (SDC) | payer MEDICARE, MEDICAID, SELFPAY ==
[2022-09-30] VITALS (7 sets, daily range): BP systolic 127–144; BP diastolic 54–78; PULSE 49–70; RESP 16–18; TEMP 36.5–36.6; O2SAT 96–100; BMI 31.8
[2022-09-30 07:52] LABS: Glucose, Whole Blood 146 mg/dL (60-115)
--- NOTE | 2022-09-30 07:52 | P.CONAN_ITS ---
HPI - Anesthesia Eval Consult details Narrative: 52 F for knee manipulation , right side PMFSH Active Problems Active Problems: All Active Problems (Updated 09/07/22 @ 00:01 by Rolan Yu) S/P total knee arthroplasty (Acute) Dysgeusia (Acute) GERD (gastroesophageal reflux disease) (Acute) Osteoarthritis of knees, bilateral (Acute) Uveitis (Acute) Osteoarthritis of lumbar spine (Acute) Decreased GFR (Acute) Palpitations (Acute) Pre-operative cardiovascular examination (Acute) Paroxysmal A-fib (Acute) Hypertension (Acute) Latent tuberculosis (Acute) Diabetes mellitus (Acute) Positive TB test (Acute) Polyarthralgia (Acute) Past Medical History Medical History Anxiety Atrophic kidney Bradycardia Constipation Depression Diabetes mellitus Fibromyalgia Hypertension Latent tuberculosis Osteoarthritis of right knee PAF (paroxysmal atrial fibrillation) Polyarthralgia Positive TB test Primary osteoarthritis of knees, bilateral Psoriasis Uveitis Functional capacity: uses cane/walker Family History Family History Father Diabetes COPD (chronic obstructive pulmonary disease) Asthma Mother HTN (hypertension) Arthritis Hyperlipemia Family history of problems with anesthesia: No Surgical History Surgical History History of eye surgery History of partial hysterectomy Hx of cholecystectomy Hx of right knee surgery Hx of tooth extraction Hx of tubal ligation History of Problems with Anesthesia: No Social History Social History Household Members: Family Housing: House Are you a primary patient care assistant to a significant other at home: No 75 years or older and lives alone: No Alcohol intake: current Alcohol intake frequency: a few times a month Alcohol type: beer, wine and hard liquor Patient Tobacco Use Status: Never used Tobacco Second Hand Smoke Exposure: No service: No Current occupational status: employed Current occupation: MA Meds Allergies Allergy/AdvReac Type Severity Reaction Status Date / Time CARLITOS Inhibitors Allergy Severe COUGH Verified 09/29/22 13:20 [CARLITOS INHIBITORS] rifampin [RIFAMPIN] Allergy Severe MUSCLE Verified 09/29/22 13:20 ACHE,PAINS simvastatin [SIMVASTATIN] Allergy Severe MUSCLE, Verified 09/29/22 13:20 muscle px ibuprofen Allergy Unknown kidney Verified 09/29/22 13:20 disease ciprofloxacin [From CIPRO] AdvReac Unknown NAUSEA/VOMI Verified 09/29/22 13:20 TING Home Medications Medication Instructions Recorded Confirmed Last Taken Type brimonidine 0.2 %-timolol 0.5 % 1 drp ophthalmic (eye) BID 08/22/20 09/11/22 06/22/22 History eye drops (Combigan) dexlansoprazole 60 mg 60 mg PO DAILY 08/22/20 09/11/22 06/21/22 History capsule,biphase delayed release (Dexilant) cholecalciferol (vitamin D3) 25 25 mcg PO DAILY 03/18/22 09/11/22 06/22/22 History mcg (1,000 unit) capsule sennosides 8.6 mg capsule (senna) 8.6 mg PO DAILY PRN Constipation 03/18/22 09/11/22 06/22/22 History lorazepam 0.5 mg tablet 0.5 mg PO BEDTIME PRN Anxiety 05/14/22 09/11/22 06/22/22 History dulaglutide 0.75 mg/0.5 mL 0.75 mg subcut QWEEK 06/02/22 09/11/22 06/16/22 History subcutaneous pen injector (Trulicity) Lactobacillus acidophilus and 1 cap PO DAILY 06/18/22 09/11/22 06/22/22 History rhamnosus 15 billion cell capsule (Probiotic) ascorbic acid (vitamin C) 1,000 mg 1,000 mg PO DAILY 06/18/22 09/11/22 06/22/22 History tablet (Vitamin C) methylcellulose (laxative) 500 mg 500 mg PO BID PRN Constipation 06/18/22 09/11/22 06/22/22 History tablet (Citrucel) multivitamin 1 tab PO DAILY 06/18/22 09/11/22 06/22/22 History ferrous sulfate 325 mg (65 mg 325 mg PO DAILY 06/19/22 09/11/22 06/22/22 History iron) tablet (iron) rifaximin 550 mg tablet 550 mg PO TID 09/11/22 09/11/22 Unknown History valsartan 320 mg tablet 320 mg PO DAILY 09/11/22 09/11/22 Unknown History Exam Exam Date and Time: September 30, 2022 2505 Narrative Narrative: Myocardial perfusion study 1.? Myocardial perfusion imaging study shows no evidence of myocardial ischemia 2.? Gated LVEF is 52% 3. Transient ischemic dilatation not present ? EKG is nondiagnostic for ischemia Airway Mallampati Class: III TM Dist: >3cm Denture: Upper and Lower Loose/Missing/Broken Teeth: Yes Heart: S1,S2 Lungs: b/l breath sounds Assessment and Plan Assessment Anesthesia Assessment: Anesthesia Plan Discussed and Chart Reviewed Final Anesthetic Review Family History of Problems with Anesthesia: No History of Problems with Anesthesia: No NPO: Yes ASA Class: III Final Preanesthetic Review: Meds/Allgs Chart Reviewed, Consent Obtained/Reviewed and Anes Risks/Benef Reviewed Patient Risk: Intermediate Procedure Risk: Intermediate Anesthetic Plan Anesthetic Plan: GA Disposition: Standard PACU
[2022-09-30] MEDS: Lactated Ringers 1,000 ML 50 ML IVCONT (08:06)
--- NOTE | 2022-09-30 08:42 | PC.NURSE ---
one IV attempt by author. attempt and insertion by Kellen PURCELL
--- NOTE | 2022-09-30 09:25 | MHC.SHP ---
Pre-Procedural Eval Section A Date of Service: 09/30/22 The patient is an INPATIENT: No Changes since office visit: No Cold of Flu in the past 2 weeks, No New Medical Problems, No Changes in Medication and No Patient answered all questions The History & Physical has been completed within 30 days and I have reviewed it.: Yes Section B Chief Complaint: Presence of unspecified artificial knee joint Allergies: Allergies Allergy/AdvReac Type Severity Reaction Status Date / Time CARLITOS Inhibitors Allergy Severe COUGH Verified 09/29/22 13:20 [CARLITOS INHIBITORS] rifampin [RIFAMPIN] Allergy Severe MUSCLE Verified 09/29/22 13:20 ACHE,PAINS simvastatin [SIMVASTATIN] Allergy Severe MUSCLE, Verified 09/29/22 13:20 muscle px ibuprofen Allergy Unknown kidney Verified 09/29/22 13:20 disease ciprofloxacin [From CIPRO] AdvReac Unknown NAUSEA/VOMI Verified 09/29/22 13:20 TING Plan I have reviewed the history and physical and performed a pertinent physical examination on my patient. No changes have occurred unless specified. Time Spent With Patient Time: Total time managing care of this patient today ____ minutes.
--- NOTE | 2022-09-30 09:26 | P.BOP_ITS ---
Brief Operative Note Date of Service: 09/30/22 Pre-op diagnosis: Stiffness s/p right TKA Post-op diagnosis: same Procedure: Manipulation under anesthesia right knee Surgeon: Rob Donnelly MD Anesthesia: GLMA Was an [employer] used for this Procedure?: No Estimated blood loss (mL): 0 Pathology: none sent Condition: stable Disposition: PACU
--- NOTE | 2022-09-30 09:26 | W.PM.OPN ---
Operative Note Operative Note Date of Service: 09/30/22 Narrative: Date of Service: 09/30/22 Pre-op diagnosis: Stiffness s/p right TKA Post-op diagnosis: same Procedure: Manipulation under anesthesia right knee Surgeon: Rob Donnelly MD Procedure in detail: Patient was brought to the operating room and placed supine on the surgical table. She was prepped and draped in standard fashion and a time out was called to indentify proper site, proper procedure. Baseline motion was 10-90 deg. I gently flexed and extended her knee with gradual increase in force until audible adhesolysis. Final motion was 5-125 deg as measured with goniometer. She was was awakened from anesthesia and brought to the recovery room in stable condition. There were no known complications.
[2022-09-30] MEDS: fentaNYL citrate/PF 100 MCG/2 ML VIAL 25 MCG IVPUSH ×3 (09:35→10:00)
[2022-09-30] MEDS: oxyCODONE HCl Immed Release 5 MG TABLET PO (09:58)
== END 2022-09-30 11:12 | disposition home or self-care (01) ==
PROVIDERS: PCP Family Medicine; Visit Provider Orthopaedic Surgery
PROC: (CPT 27570; principal; 2022-09-30 09:00)
DX: M25.561 Pain in right knee (principal); Z96.651 Presence of right artificial knee joint; M17.0 Bilateral primary osteoarthritis of knee; M79.7 Fibromyalgia; I10 Essential (primary) hypertension; I48.0 Paroxysmal atrial fibrillation; E11.9 Type 2 diabetes mellitus without complications; Z79.85 Long-term (current) use of injectable non-insulin antidiabetic drugs; Z79.899 Other long term (current) drug therapy; Z22.7 Latent tuberculosis; Z88.1 Allergy status to other antibiotic agents; Z88.8 Allergy status to other drugs, medicaments and biological substances
CPT/HCPCS: 27570; 82947; J0131; J1100; J1170; J2250; J2405; J3010

== ENCOUNTER → 2022-10-10 14:19 | Outpatient (BNVA) | payer MEDICARE, MEDICAID, SELFPAY | PROVIDERS: PCP Family Medicine; Visit Provider Physician Assistant | DX: Z13.89 Encounter for screening for other disorder (principal) | CPT/HCPCS: 99212 ==

== ENCOUNTER → 2022-10-24 13:06 | Outpatient (BNVA) | payer MEDICARE, MEDICAID, SELFPAY | PROVIDERS: PCP Family Medicine; Visit Provider Physician Assistant ==

== ENCOUNTER → 2022-11-12 07:59 | Outpatient (REF) | payer MEDICARE, MEDICAID, SELFPAY ==
--- NOTE | ~2022-11-12 | NM_ITS ---
EXAMINATION: RADIONUCLIDE SOLID FOOD GASTRIC EMPTYING 4-HOUR STUDY CLINICAL INFORMATION: Early satiety. COMPARISON: No previous gastric emptying study is available for comparison. TECHNIQUE: A standard meal consisting of 4 oz of Egg Beaters brand equivalent tagged was 1.0 mCi Tc-99m Sulfur Colloid, 8 oz water and 2 slices of toast with jelly was administered orally to the patient. Images were obtained using a dual head gamma camera in the anterior and posterior projections over of the stomach immediately post ingestion and at hourly intervals up to 4 hours post ingestion. The anterior and posterior counts at each time interval were averaged using the geometric mean and expressed as percentage of the immediate post ingestion counts. FINDINGS: There is good visualization of activity in the stomach immediately post ingestion. As the study progresses, there is good clearance of activity from the stomach and visualization of progressively increasing small bowel activity. By the end of the study, there is almost no retention noted in the stomach. Retention in the stomach at each time interval was: 1 hour 95% (normal 37%-90%) 2 hours 57% (normal 30%-60%) 3 hours 28% 4 hours 4% (normal 0%-10%) NM/NM gastric emptying study IMPRESSION: Normal 4-hour solid food gastric emptying study.
== END ==
LOC: HO.NUCMED 07:59
PROVIDERS: PCP Family Medicine; Visit Provider Internal Medicine Gastroenterology
DX: R68.81 Early satiety (principal)
CPT/HCPCS: 78264; A9541

== ENCOUNTER → 2022-11-18 13:09 | Outpatient (BNVA) | payer MEDICARE, MEDICAID, SELFPAY | PROVIDERS: PCP Family Medicine; Visit Provider Physician Assistant ==

== ENCOUNTER 2022-12-08 13:06 | Outpatient (REF) | payer MEDICARE, MEDICAID, SELFPAY ==
--- NOTE | ~2022-12-08 | MM_ITS ---
EXAMINATION: MM SCREENING DIGITAL BREAST TOMOSYNTHESIS, BILATERAL CLINICAL INFORMATION: Screening. Asymptomatic. The lifetime risk of breast cancer based on the Tyrer-Cuzick Model is 15.6%. COMPARISON: Mammography: November 12, 2021 and studies dating back to June 25, 2015 TECHNIQUE: Digital breast tomosynthesis is performed in both the craniocaudal and mediolateral oblique views along with computer-aided detection (CAD). Synthesized 2D images are generated from the tomosynthesis. FINDINGS: The breasts are heterogeneously dense, which may obscure small masses (ACR BI-RADS breast composition Category c). There are no significant masses, abnormal calcifications, or other abnormalities. MM/MM tomosynthesis screening BI IMPRESSION: No significant changes from prior exam. ASSESSMENT: BI-RADS 1: Negative RECOMMENDATION: Routine annual mammography screening. This patient's information was entered into a reminder system with a target due date for their next mammogram.
== END 2022-12-08 13:07 | disposition home or self-care (01) ==
LOC: HO.MAMMO 13:06
PROVIDERS: PCP Family Medicine; Visit Provider Family Medicine
DX: Z12.31 Encounter for screening mammogram for malignant neoplasm of breast (principal)
CPT/HCPCS: 77063; 77067

== ENCOUNTER → 2022-12-15 13:15 | Outpatient (BNVA) | payer MEDICARE, MEDICAID, SELFPAY | PROVIDERS: PCP Family Medicine; Referring Provider Family Medicine; Visit Provider Internal Medicine Gastroenterology | DX: K76.0 Fatty (change of) liver, not elsewhere classified (principal); R68.81 Early satiety | CPT/HCPCS: 99212 ==

== ENCOUNTER 2022-12-22 15:00 | Outpatient (RCR) | payer MEDICARE, MEDICAID, SELFPAY ==
--- NOTE | 2022-07-29 16:36 | MHC.PT.EP ---
[facility] [place] [facility] [place] [facility] [place] [facility] [address] Yolanda Carbone [address] [phone] F: [phone] F: [phone] F: [phone] F: [phone] Physical Therapy Plan of Care Date of Evaluation: Date of Surgery: R TKA 06/24/22 Diagnosis: L TKR Assessment: Pt IS 52 YO F REFERRED TO PT FROM ORTHO (DR TONG)S/P R TKR BY DR TONG ON 06/24/22. IN HOSPITAL X 3 NIGHTS. THEN WENT HOME THEN HAD HOME PT UNTIL 07/11/22, THEN ORTHO FU (REMOVED SANJEEV) AND REFERRED TO OUTPt PT. THEN HAD FLU. NOW AMBULATING WITH CANE..USES [facility] AT HOUSE. PRESENTS WITH LIMITED R KNEE ROM, LE STRENGTH, ANTALGIC GT, PAIN, LIMITED ADLS. GOOD PT CANDIDATE TO ADDRESS THESE ISSUES. OF NOTE, Pt HAD FLU WHICH SHE REPORTS SET HER BACK FROM TIME OF DC FROM HOME PT Frequency and Duration: The patient will be seen 2X/WK X 6 WKS Short Term Goals: 1. INCREASED AWARENESS KNEE CARE 2. INCREASED R KNEE ROM 0-130 3. IMPROVED SCAR AREA (LESS SCAB, LESS DRY) Piping Manager Goals: 1. I HEP WITH DC EX PLAN 2. I GT WITHOUT AD 3. DECREASED R KNEE PAIN AT LEAST 50% WITH ADLS Treatment Plan: Modalities to reduce pain, spasms and effusion. Manual therapy to restore motion and function. Therapeutic exercise to improve strength and flexibility. Neuromuscular re-education for posture and balance. Therapeutic activities to return to functional activities of daily living. Electronically signed by: JACE ADAIR PT Please sign and return to therapist. Thank you for your referral.
--- NOTE | 2023-01-02 11:02 | MHC.PT.DC ---
[facility] [place] Office [place] Office [place] Office [address] [phone] F: [phone] F: [phone] F: [phone] F: [phone] Physical Therapy Discharge Report Diagnosis: L TKR Date of Surgery: R TKA 06/24/22 Date of Evaluation: 07/29/22 Date of Discharge: 12/22/22 Treatments to Date: Cancellations to Date: No Shows to Date: Discharge Status: Achieved Goals Improved Function Independent with HEP Discharge Summary: PER LAST NOTE ASSESSMENT BY SHELDON BECKFORD MIXER WET POUR/STUDENT Partial goal met with ROM W/Max range in therapy 120* Pt independent w/HEP. CAMI KOHLER (06-11) Electronically signed by: JACE ADAIR PT Please sign and return to therapist. Thank you for your referral.
== END 2023-01-02 11:04 | disposition home or self-care (01) ==
LOC: HO.PT 15:00
PROVIDERS: Visit Provider Orthopaedic Surgery
DX: Z96.651 Presence of right artificial knee joint (principal)
CPT/HCPCS: 97014; 97110; 97140; 97162; 97530; 97535

== ENCOUNTER 2022-12-30 11:14 | Outpatient (REF) | payer MEDICARE, MEDICAID, SELFPAY ==
--- NOTE | ~2022-12-30 | US_ITS ---
EXAMINATION: US ABDOMEN COMPLETE CLINICAL INFORMATION: Early satiety, fatty liver. COMPARISON: Ultrasound abdomen complete 05/04/2019 and 08/07/2014. TECHNIQUE: Real-time imaging of the abdominal viscera. FINDINGS: PANCREAS: The head and body appear normal. The tail is obscured by bowel gas. ABDOMINAL AORTA: The proximal, mid, and distal segments are normal in caliber. INFERIOR VENA CAVA: Visualized portions are normal. LIVER: The liver is normal in size. The liver contour is normal. There is diffuse increased liver parenchymal echogenicity, consistent with hepatic steatosis. No focal hepatic lesion. There is no intrahepatic biliary duct dilatation seen. GALLBLADDER: Surgically absent. COMMON BILE DUCT: Normal in caliber measuring 0.3 cm in diameter. RIGHT KIDNEY: Chronic right renal atrophy. No hydronephrosis. No discrete mass or nephrolithiasis. LEFT KIDNEY: Normal. No hydronephrosis. No renal calculi or focal parenchymal lesions. The kidney measures 12.1 cm in maximum dimension. SPLEEN: Normal. The spleen measures 10.3 cm in maximum dimension. FREE FLUID: None. US/US abdomen complete IMPRESSION: Increased hepatic echogenicity consistent with chronic hepatocellular disease, most commonly hepatic steatosis. Chronic atrophy of the right kidney
== END 2022-12-30 11:15 | disposition home or self-care (01) ==
LOC: HO.US 11:14
PROVIDERS: PCP Family Medicine; Visit Provider Internal Medicine Gastroenterology
DX: R68.81 Early satiety (principal); K76.0 Fatty (change of) liver, not elsewhere classified
CPT/HCPCS: 76700; 99212

== ENCOUNTER 2023-04-13 14:03 | Outpatient (AMB) | payer MEDICARE, MEDICAID, SELFPAY ==
--- NOTE | 2023-04-13 14:25 | A.OFFVIS_ITS ---
Intake Vital Signs 04/13/23 14:26 Height 5 ft 5 in Weight 196 lb 3.382 oz BMI 32.6 BP 120/72 Blood Pressure Location Lt brachial Position Sitting Pulse 56 Intake Visit Reasons: r/s follow-up Intake Note: r/s follow up pt having dizziness and light headed Frame Stripper And Crusher Required: No Allergies CARLITOS Inhibitors [CARLITOS INHIBITORS] Allergy (Severe, Verified 04/13/23 14:34) COUGH rifampin [RIFAMPIN] Allergy (Severe, Verified 04/13/23 14:34) MUSCLE ACHE,PAINS simvastatin [SIMVASTATIN] Allergy (Severe, Verified 04/13/23 14:34) MUSCLE, muscle px ibuprofen Allergy (Unknown, Verified 04/13/23 14:34) kidney disease ciprofloxacin [From CIPRO] Adverse Reaction (Unknown, Verified 04/13/23 14:34) NAUSEA/VOMITING Medication List - Last Reconciled 04/13/23 by JEFERSON Weeks acetaminophen 650 mg (2 x 325 mg) PO Q6H PRN 30 days apixaban (Eliquis) 5 mg PO BID ascorbic acid (vitamin C) (Vitamin C) 1,000 mg PO DAILY brimonidine-timolol 0.2-0.5 % (Combigan) 1 drp ophthalmic (eye) BID cholecalciferol (vitamin D3) 25 mcg PO DAILY colesevelam 1,250 mg (2 x 625 mg) PO BID commode As directed dexlansoprazole (Dexilant) 60 mg PO DAILY dicyclomine 10 mg PO BID dulaglutide (Trulicity) 0.75 mg subcut QWEEK ferrous sulfate (iron) 325 mg PO DAILY hyoscyamine sulfate 0.125 mg PO QID L. acidophilus-L. rhamnosus 15 billion cell (Probiotic) 1 cap PO DAILY lorazepam 0.5 mg PO BEDTIME PRN lorazepam mg PO methylcellulose (laxative) (Citrucel) 500 mg PO BID PRN metoprolol succinate ER 50 mg PO QPM multivitamin 1 tab PO DAILY quetiapine 25 mg PO BEDTIME sennosides (senna) 8.6 mg PO DAILY PRN valsartan 320 mg PO DAILY walker Folding Front wheeled walker HPI r/s follow-up HPI Details Jennifer is a 53-year-old female past medical history of hypertension, diabetes, chronic kidney disease, paroxysmal AFib who presents for follow-up. Today she reports that she has been having a problem with dizziness recently. She tells me that she had been on valsartan 320 mg daily. She reported her symptom of dizziness to her computer systems design analyst and her dose was reduced down to 160 mg daily. That was 2 weeks ago and she has not had improvement in her symptom. She describes feeling lightheaded with position changes such as sitting to standing and if she is upright walking. She denies dizziness with turning her head or rolling over in bed. She has had no presyncope, syncope, falls. No other changes to medications in recent months. She tells me she is well h ydrated. No chest discomfort, shortness of breath, PND, orthopnea or edema. She continues get heart palpitations if she lays on her left side. She has been taking her metoprolol and Eliquis as directed. No bleeding issues reported [facility] Medical History Anxiety Atrophic kidney Bradycardia Constipation Depression Diabetes mellitus Fibromyalgia Hypertension Latent tuberculosis Osteoarthritis of right knee PAF (paroxysmal atrial fibrillation) Polyarthralgia Positive TB test Primary osteoarthritis of knees, bilateral Psoriasis Uveitis Surgical History History of esophagogastroduodenoscopy (EGD) History of eye surgery History of partial hysterectomy Hx of cholecystectomy Hx of colonoscopy Hx of right knee surgery Hx of tooth extraction Hx of tubal ligation Family History Father Diabetes COPD (chronic obstructive pulmonary disease) Asthma Mother HTN (hypertension) Arthritis Hyperlipemia Sister Neoplasm of head Social History Household Members: Family Housing: House Are you a primary healthcare corporate account director to a significant other at home: No 75 years or older and lives alone: No Alcohol intake: current Alcohol intake frequency: a few times a month Alcohol type: beer, wine and hard liquor Patient Tobacco Use Status: Never used Tobacco Second Hand Smoke Exposure: No service: No Current occupational status: employed Current occupation: MA Review of Systems Const All systems reviewed & are unremarkable except as noted in HPI and below ENT Reports dizziness Card Denies chest pain, Denies chest pain at rest, Denies chest pain with activity, Denies rapid heart rate, Denies pedal edema, Denies edema, Denies leg edema, Denies lightheadedness, Reports palpitations (Laying on left side), Denies dyspnea, Denies dyspnea on exertion and Denies orthopnea Resp Denies cough, Denies dyspnea and Denies dyspnea on exertion GI Denies hematochezia and Denies change in stool character Musc Denies abnormal gait, Denies limited range of motion, Denies muscle cramps, Denies muscle weakness, Denies numbness, Denies radiating pain into limb, Denies stiffness and Denies tingling Neuro Denies abnormal gait, Reports dizziness, Denies numbness and Denies tingling Endo Reports palpitations (Laying on left side) Physical Exam Vital Signs: Last Vital Signs Pulse 56 04/13/23 14:26 BP 120/72 04/13/23 14:26 BMI result Body Mass Index 32.6 Const General: cooperative, healthy appearing, comfortable and no acute distress Orientation/consciousness: patient oriented x3 Neck Neck: Yes normal visual inspection Resp Effort & Inspection: normal respiratory effort Auscultation: clear to auscultation bilaterally, no crackles, no rales, no rhonchi and no wheezes Cardio Jugular venous distension: no JVD Rate: regular rate Rhythm: regular rhythm Heart sounds: S1 normal heart sound present, S2 normal heart sound present, no gallops, no murmurs and no rubs Neuro General: patient oriented x3 Extrem General: Yes normal to inspection and No no pedal edema Psych Appearance: grossly normal Mental Status: mental status grossly normal Speech and movement: Normal speech and movement present Office Procedures EKG Details: Today, read by me, sinus bradycardia with sinus arrhythmia, rate 56, QTC 434 millisecond 92132-[id number], Complete Assessment & Plan Assessment & Plan (1) Paroxysmal A-fib: Code(s): I48.0 - Paroxysmal atrial fibrillation Plan: History of paroxysmal atrial fibrillation. Suppressed with metoprolol XL 50 mg daily. EKG done today showing sinus bradycardia, sinus arrhythmia, rate 56. She continues to report palpitations if she lays on her left side. She is on Eliquis 5 mg b.i.d. for anticoagulation. No bleeding issues reported. Continue current treatment. (2) Dizziness: Code(s): R42 - Dizziness and giddiness Plan: She has been experiencing episodes of dizziness when she is upright and with position changes, sitting to standing. Her valsartan dose was reduced by her computer systems design analyst without improvement in her symptom. She tells me she has checked her blood sugar and her blood pressure when she has the symptom and they are both within normal limits. No hypotension has been documented. Her symptoms do not sound like classic vertigo as she has no dizziness with bending, turning her head or rolling over in bed. She is not orthostatic on examination today. Blood pressure sitting 120/72, standing 136/78. Offered Holter monitor to assess for any AFib or arrhythmia and she declines. She tells me she has follow-up with her computer systems design analyst and will further discuss with him at that time (3) Hypertension: Code(s): I10 - Essential (primary) hypertension Plan: Well controlled. No med changes made Coding Level of Care Code Est Pt Level 4 (34992) Diagnoses Paroxysmal A-fib I48.0 Dizziness R42 Hypertension I10 CPT Codes EKG - CPT: 92456-[id number], Complete ([id number]) Time Spent (min) 26 Comment Chart review, documentation, interview, assessment
[2023-04-13 14:26] VITALS: BP 120/72; PULSE 56; BMI 32.6
== END 2023-04-13 14:57 | disposition home or self-care (01) ==
PROVIDERS: PCP Family Medicine; Referring Provider Family Medicine; Visit Provider Nurse Practitioner Family
DX: I48.0 Paroxysmal atrial fibrillation (principal); R42 Dizziness and giddiness; I10 Essential (primary) hypertension
CPT/HCPCS: 93010; 99214

== ENCOUNTER → 2023-04-13 14:03 | Outpatient (BNVA) | payer MEDICARE, MEDICAID, SELFPAY | PROVIDERS: PCP Family Medicine; Referring Provider Family Medicine; Visit Provider Nurse Practitioner Family | DX: I48.0 Paroxysmal atrial fibrillation (principal); I10 Essential (primary) hypertension; R42 Dizziness and giddiness; Z79.01 Long term (current) use of anticoagulants; Z79.899 Other long term (current) drug therapy | CPT/HCPCS: 93005; 99212 ==

== ENCOUNTER 2023-05-11 12:44 | Outpatient (AMB) | payer MEDICARE, MEDICAID, SELFPAY ==
--- NOTE | 2023-05-11 12:44 | MHC.OFFVIS ---
Intake Intake Visit Reasons: 4 mnth follow up Intake Note: Jennifer presents as a telehealth today. CC: No concerns at this time. Allergies CARLITOS Inhibitors [CARLITOS INHIBITORS] Allergy (Severe, Verified 05/11/23 12:44) COUGH rifampin [RIFAMPIN] Allergy (Severe, Verified 05/11/23 12:44) MUSCLE ACHE,PAINS simvastatin [SIMVASTATIN] Allergy (Severe, Verified 05/11/23 12:44) MUSCLE, muscle px ibuprofen Allergy (Unknown, Verified 05/11/23 12:44) kidney disease ciprofloxacin [From CIPRO] Adverse Reaction (Unknown, Verified 05/11/23 12:44) NAUSEA/VOMITING HPI 4 mnth follow up HPI Details 53 yr old f being called for f/u RECAP: EGD/colonoscopy: 2019 reflux changes on bx, hyperplastic polyp removed she had concerns for bad breath and metallic taste in mouth GES 10/2022- normal US--hepatic steatosis INTERIM: she feesl the IBS is getting worse, ongoing colicky pain she feels the welchol did not work and tried it for one month she still has diarrhea after eating food she still has bad breath no nausea or vomiting no melena, no rectal bleeding she is taking dexilant and she feels it works she is not taking bentyl, was worried abt side effects she is taking probiotics, align she eats a lot of yoghurt and cheese A/P: 1/ Post prandial diarrhea and cramps, halitosis, maybe related to lactose intolerance, malabsorption, food intolerance, food allergies, panc insuff 2/ NAFLD PLAN: 1/ Check labs as below, she will go to [facility] 2/ trial of creon and see how she goes 3/ might consider lactose free trial 4/ ?trial of ursodiol 5/ recheck CRP, stool lactoferrin, PFSH Medical History Anxiety Atrophic kidney Bradycardia Constipation Depression Diabetes mellitus Fibromyalgia Hypertension Latent tuberculosis Osteoarthritis of right knee PAF (paroxysmal atrial fibrillation) Polyarthralgia Positive TB test Primary osteoarthritis of knees, bilateral Psoriasis Uveitis Surgical History History of esophagogastroduodenoscopy (EGD) History of eye surgery History of partial hysterectomy Hx of cholecystectomy Hx of colonoscopy Hx of right knee surgery Hx of tooth extraction Hx of tubal ligation Family History Father Diabetes COPD (chronic obstructive pulmonary disease) Asthma Mother HTN (hypertension) Arthritis Hyperlipemia Sister Neoplasm of head Social History Household Members: Family Housing: House Are you a primary college and career counselor to a significant other at home: No 75 years or older and lives alone: No Alcohol intake: current Alcohol intake frequency: a few times a month Alcohol type: beer, wine and hard liquor Patient Tobacco Use Status: Never used Tobacco Second Hand Smoke Exposure: No service: No Current occupational status: employed Current occupation: MA Assessment & Plan Assessment & Plan (1) Fatty liver: Code(s): K76.0 - Fatty (change of) liver, not elsewhere classified (2) Early satiety: Code(s): R68.81 - Early satiety (3) Malabsorption: Code(s): K90.9 - Intestinal malabsorption, unspecified Orders: Orders Vitamin A Today K76.0 - Fatty (change of) liver, not elsewhere classified, K90.9 - Intestinal malabsorption, unspecified, R68.81 - Early satiety Vitamin B12 and Folate Today K76.0 - Fatty (change of) liver, not elsewhere classified, K90.9 - Intestinal malabsorption, unspecified, R68.81 - Early satiety Vitamin B3 (Niacin) Today K76.0 - Fatty (change of) liver, not elsewhere classified, K90.9 - Intestinal malabsorption, unspecified, R68.81 - Early satiety Vitamin B5 (Pantothenic Acid) Today K76.0 - Fatty (change of) liver, not elsewhere classified, K90.9 - Intestinal malabsorption, unspecified, R68.81 - Early satiety Vitamin B6 Today K76.0 - Fatty (change of) liver, not elsewhere classified, K90.9 - Intestinal malabsorption, unspecified, R68.81 - Early satiety Vitamin D 25-OH Total Today K76.0 - Fatty (change of) liver, not elsewhere classified, K90.9 - Intestinal malabsorption, unspecified, R68.81 - Early satiety Ferritin Today K76.0 - Fatty (change of) liver, not elsewhere classified, K90.9 - Intestinal malabsorption, unspecified, R68.81 - Early satiety Tryptase Today K76.0 - Fatty (change of) liver, not elsewhere classified, K90.9 - Intestinal malabsorption, unspecified, R19.7 - Diarrhea, unspecified, R68.81 - Early satiety Lipase Today K76.0 - Fatty (change of) liver, not elsewhere classified, K90.9 - Intestinal malabsorption, unspecified, R68.81 - Early satiety C Reactive Protein Today K90.9 - Intestinal malabsorption, unspecified Fecal Fat Qualitative Today K76.0 - Fatty (change of) liver, not elsewhere classified, K90.9 - Intestinal malabsorption, unspecified, R68.81 - Early satiety Lactoferrin, Fecal, Quant. Today K51.50 - Left sided colitis without complications, K76.0 - Fatty (change of) liver, not elsewhere classified, K90.9 - Intestinal malabsorption, unspecified, R68.81 - Early satiety Vitamin B1 Today K76.0 - Fatty (change of) liver, not elsewhere classified, K90.9 - Intestinal malabsorption, unspecified, R68.81 - Early satiety Vitamin C Today K76.0 - Fatty (change of) liver, not elsewhere classified, K90.9 - Intestinal malabsorption, unspecified, R68.81 - Early satiety Vitamin E Today K76.0 - Fatty (change of) liver, not elsewhere classified, K90.9 - Intestinal malabsorption, unspecified, R68.81 - Early satiety Vitamin K1 Today K76.0 - Fatty (change of) liver, not elsewhere classified, K90.9 - Intestinal malabsorption, unspecified, R68.81 - Early satiety Zinc Today K76.0 - Fatty (change of) liver, not elsewhere classified, K90.9 - Intestinal malabsorption, unspecified, R68.81 - Early satiety Histamine Plasma Today K76.0 - Fatty (change of) liver, not elsewhere classified, K90.9 - Intestinal malabsorption, unspecified, R68.81 - Early satiety Pancreatic Elastase-1 Today K76.0 - Fatty (change of) liver, not elsewhere classified, K90.9 - Intestinal malabsorption, unspecified, R68.81 - Early satiety Trypsin Today K76.0 - Fatty (change of) liver, not elsewhere classified, K90.9 - Intestinal malabsorption, unspecified, R68.81 - Early satiety Medications: New [id number] 24,000-76,000 -120,000 unit (Creon) administer with meals and/or snacks 2 caps PO TID 120 caps 0RF Telehealth Telehealth Location of provider rendering services: practice address Location of patient: address on file Patient Identification confirmed using: Name, : Yes Telehealth method: video Patient verbally consented to treatment: Yes Patient verbally consented to billing insurance company: Yes Patient informed of any privacy concerns related to visit: Yes Minutes spent on Phone/Video with Pt.: 17 Coding Level of Care Code Tele Est Pt Level 4 (33597) Diagnoses Fatty liver K76.0 Early satiety R68.81 Malabsorption K90.9
== END 2023-05-11 14:45 | disposition home or self-care (01) ==
LOC: HO.HGI 12:44
PROVIDERS: PCP Family Medicine; Visit Provider Internal Medicine Gastroenterology
DX: K76.0 Fatty (change of) liver, not elsewhere classified (principal); R68.81 Early satiety; K90.9 Intestinal malabsorption, unspecified
CPT/HCPCS: 99214

== ENCOUNTER → 2023-05-11 12:44 | Outpatient (BNVA) | payer MEDICARE, MEDICAID, SELFPAY | PROVIDERS: PCP Family Medicine; Visit Provider Internal Medicine Gastroenterology ==

== ENCOUNTER 2023-07-06 12:30 | Outpatient (AMB) | payer MEDICARE, MEDICAID, SELFPAY ==
[2023-07-06 12:37] VITALS: BMI 32.6
--- NOTE | 2023-07-06 12:37 | MHC.OFFVIS ---
Intake Vital Signs 07/06/23 12:37 Height 5 ft 5 in Weight 196 lb BMI 32.6 Intake Visit Reasons: OV - S/P right Knee SACHA, 09/30/22 NE Intake Note: eJnnifer is a 52 year old female who presents today for a follow up appointment s/p right knee SACHA, 09/30/22 NE. Patient reports haivng a lot of pain due to the weather getting colder. She states that using the stairs makes her pain even worse. Allergies CARLITOS Inhibitors [CARLITOS INHIBITORS] Allergy (Severe, Verified 07/06/23 12:46) COUGH rifampin [RIFAMPIN] Allergy (Severe, Verified 07/06/23 12:46) MUSCLE ACHE,PAINS simvastatin [SIMVASTATIN] Allergy (Severe, Verified 07/06/23 12:46) MUSCLE, muscle px ibuprofen Allergy (Unknown, Verified 07/06/23 12:46) kidney disease ciprofloxacin [From CIPRO] Adverse Reaction (Unknown, Verified 07/06/23 12:46) NAUSEA/VOMITING HPI OV - S/P right Knee SACHA, 09/30/22 NE HPI Details 53-year-old female who presents in the office today 9 months status post right knee manipulation under anesthesia, which was performed on 09/30/[address] Donnelly. The patient reports having a lot of pain due to the weather getting cold. She also states she has an increase in pain with use of stairs. [facility] Medical History Anxiety Atrophic kidney Bradycardia Constipation Depression Diabetes mellitus Fibromyalgia Hypertension Latent tuberculosis Osteoarthritis of right knee PAF (paroxysmal atrial fibrillation) Polyarthralgia Positive TB test Primary osteoarthritis of knees, bilateral Psoriasis Uveitis Surgical History History of esophagogastroduodenoscopy (EGD) History of eye surgery History of partial hysterectomy Hx of cholecystectomy Hx of colonoscopy Hx of right knee surgery Hx of tooth extraction Hx of tubal ligation Family History Father Diabetes COPD (chronic obstructive pulmonary disease) Asthma Mother HTN (hypertension) Arthritis Hyperlipemia Sister Neoplasm of head Social History Household Members: Family Housing: House Are you a primary health care assistant to a significant other at home: No 75 years or older and lives alone: No Alcohol intake: current Alcohol intake frequency: a few times a month Alcohol type: beer, wine and hard liquor Patient Tobacco Use Status: Never used Tobacco Second Hand Smoke Exposure: No service: No Current occupational status: employed Current occupation: MA Review of Systems Const All systems reviewed & are unremarkable except as noted in HPI and below Physical Exam Vital Signs: BMI result Body Mass Index 32.6 Const General: cooperative, healthy appearing and no acute distress Resp Effort & Inspection: normal respiratory effort and able to speak in complete sentences Cardio Rate: regular rate Peripheral pulses: Peripheral pulses 2+ throughout GI Palpation (GI): Soft to palpation Skin Lesions: no lesions Rashes: no rashes Extrem Other: Right knee: ROM is 0-95 degrees. No tenderness to palpation medial or lateral joint lines. NVI. Assessment & Plan Assessment & Plan (1) S/P total knee arthroplasty: Comment: Right knee arthroplasty; 06/24/2022 NE Right knee manipulation under anesthesia; 09/30/2022 NE Code(s): Z96.659 - Presence of unspecified artificial knee joint Qualifiers: Laterality: right Qualified Code(s): Z96.651 - Presence of right artificial knee joint Plan Ms. Sosa is a 53-year-old female who presents in the office today 9 months status post right knee manipulation under anesthesia, which was performed on 09/30/[address] Donnelly. The patient reports having a lot of pain due to the weather getting cold. She also states she has an increase in pain with use of stairs. I discussed the case with Dr. Donnelly while in the office to, but he was unable to see the patient with me. The patient will be referred to physical therapy to work on ROM. Follow up will be in 6 weeks, or sooner if needed. Orders: Orders PT Evaluation and Treatment Today Z96.659 - Presence of unspecified artificial knee joint Patient Instructions: Scribed for Vicki Ace PA-C by Marga Lang medical records custodian, on 07/06/2023 at 12:36 pm, EST. Coding Level of Care Code Est Pt Level 3 (64013) Diagnoses Status post total right knee replacement Z96.651 Laterality: right
== END 2023-07-06 13:11 | disposition home or self-care (01) ==
PROVIDERS: PCP Family Medicine; Visit Provider Physician Assistant
DX: M25.561 Pain in right knee (principal); Z96.651 Presence of right artificial knee joint
CPT/HCPCS: 99213

== ENCOUNTER → 2023-07-06 12:30 | Outpatient (BNVA) | payer MEDICARE, MEDICAID, SELFPAY | PROVIDERS: PCP Family Medicine; Visit Provider Physician Assistant | DX: Z96.651 Presence of right artificial knee joint (principal) | CPT/HCPCS: 99212 ==

== ENCOUNTER 2023-09-08 17:23 | Outpatient (REF) | payer MEDICARE, MEDICAID, SELFPAY ==
[2023-09-08 18:21] LABS: Influenza A PCR NEGATIVE (Negative); Influenza B PCR NEGATIVE (Negative); Resp Syncy Virus RNA Qual PCR NEGATIVE (Negative); SARS COV2 PCR INHOUSE NEGATIVE (Negative)
== END 2023-09-08 17:24 | disposition home or self-care (01) ==
LOC: HO.CHCLNP 17:23
PROVIDERS: Visit Provider Family Medicine
DX: J06.9 Acute upper respiratory infection, unspecified (principal); Z11.52 Encounter for screening for COVID-19; Z20.828 Contact with and (suspected) exposure to other viral communicable diseases
CPT/HCPCS: 0241U

== ENCOUNTER 2023-09-24 10:10 | Outpatient (AMB) | payer MEDICARE, MEDICAID, SELFPAY ==
--- NOTE | 2023-09-24 10:15 | MHC.OFFVIS ---
Intake Intake Visit Reasons: OV - right Knee SACHA 09/30/22 NE Intake Note: Jennifer is a 52 year old female who presents today for a follow up appointment s/p right knee SACHA, 09/30/22 NE. Patient reports still having since surgery. She states that PT went well, however she wants to continue with more classes. Patient is showing improvements in there ROM. Patient reports that her scar tissue is making her pain worse. Allergies CARLITOS Inhibitors [CARLITOS INHIBITORS] Allergy (Severe, Verified 09/24/23 10:18) COUGH rifampin [RIFAMPIN] Allergy (Severe, Verified 09/24/23 10:18) MUSCLE ACHE,PAINS simvastatin [SIMVASTATIN] Allergy (Severe, Verified 09/24/23 10:18) MUSCLE, muscle px ibuprofen Allergy (Unknown, Verified 09/24/23 10:18) kidney disease ciprofloxacin [From CIPRO] Adverse Reaction (Unknown, Verified 09/24/23 10:18) NAUSEA/VOMITING HPI OV - right Knee SACHA 09/30/22 NE HPI Details 53-year-old female who presents in the office today 1 year status post right knee manipulation under anesthesia, which was performed on 09/30/[address] Donnelly. I last saw the patient in the office on 07/06/2023 when she was referred to physical therapy to work on ROM. While in the office today the patient reports continue pain since the surgery. She states physical therapy went well. She would like to continue with more sessions. She reports signs of improvement with her ROM. She reports the scar tissue is making her pain worse. [facility] Medical History Anxiety Atrophic kidney Bradycardia Constipation Depression Diabetes mellitus Fibromyalgia Hypertension Latent tuberculosis Osteoarthritis of right knee PAF (paroxysmal atrial fibrillation) Polyarthralgia Positive TB test Primary osteoarthritis of knees, bilateral Psoriasis Uveitis Surgical History History of esophagogastroduodenoscopy (EGD) History of eye surgery History of partial hysterectomy Hx of cholecystectomy Hx of colonoscopy Hx of right knee surgery Hx of tooth extraction Hx of tubal ligation Family History Father Diabetes COPD (chronic obstructive pulmonary disease) Asthma Mother HTN (hypertension) Arthritis Hyperlipemia Sister Neoplasm of head Social History Household Members: Family Housing: House Are you a primary childbirth and infant care teacher to a significant other at home: No 75 years or older and lives alone: No Alcohol intake: current Alcohol intake frequency: a few times a month Alcohol type: beer, wine and hard liquor Patient Tobacco Use Status: Never used Tobacco Second Hand Smoke Exposure: No service: No Current occupational status: employed Current occupation: MA Review of Systems Const All systems reviewed & are unremarkable except as noted in HPI and below Physical Exam Const General: cooperative, healthy appearing and no acute distress Resp Effort & Inspection: normal respiratory effort and able to speak in complete sentences Cardio Rate: regular rate Peripheral pulses: Peripheral pulses 2+ throughout GI Palpation (GI): Soft to palpation Skin Lesions: no lesions Rashes: no rashes Extrem Other: Right knee: Normal to inspection. No ecchymosis, erythema, or edema. ROM is 0-90 degrees. NVI. Assessment & Plan Assessment & Plan (1) S/P total knee arthroplasty: Comment: Right knee arthroplasty; 06/24/2022 NE Right knee manipulation under anesthesia; 09/30/2022 NE Code(s): Z96.659 - Presence of unspecified artificial knee joint Qualifiers: Laterality: right Qualified Code(s): Z96.651 - Presence of right artificial knee joint Plan Ms. Sosa is a 53-year-old female who presents in the office today 1 year status post right knee manipulation under anesthesia, which was performed on 09/30/[address] Donnelly. I last saw the patient in the office on 07/06/2023 when she was referred to physical therapy to work on ROM. While in the office today the patient reports continue pain since the surgery. She states physical therapy went well. She would like to continue with more sessions. She reports signs of improvement with her ROM. She reports the scar tissue is making her pain worse. The patient had yet to attend physical therapy. She reports she has a vacation coming up in 10/2023 and does not want to attend until after. She would like to attend in [place] and therefore a handwritten prescription has been given to her for her to attend an outside facility. I did instruct her that she should attempt to make physical therapy appointments prior to her vacation to get the knee moving as soon as possible. There is no additional orthopedic intervention at this time, she needs to attend physical therapy. Patient requested recommendation for pain management, I have placed an order for a topical pain cream. Follow up will be after physical therapy sessions are completed, or sooner if needed. Orders: Orders PT Evaluation and Treatment Today Z96.659 - Presence of unspecified artificial knee joint Patient Instructions: Scribed by Marga Lang durable medical equipment technician, for Vicki Ace PA-C on 09/24/2023 at 10:12 am, EST. Coding Level of Care Code Est Pt Level 3 (24740) Diagnoses Status post total right knee replacement Z96.651 Laterality: right
== END 2023-09-24 11:02 | disposition home or self-care (01) ==
PROVIDERS: PCP Family Medicine; Visit Provider Physician Assistant
DX: Z47.89 Encounter for other orthopedic aftercare (principal); Z96.651 Presence of right artificial knee joint
CPT/HCPCS: 99213

== ENCOUNTER → 2023-09-24 10:10 | Outpatient (BNVA) | payer MEDICARE, MEDICAID, SELFPAY | PROVIDERS: PCP Family Medicine; Visit Provider Physician Assistant | DX: Z96.651 Presence of right artificial knee joint (principal) | CPT/HCPCS: 99212 ==

== ENCOUNTER 2023-10-20 12:59 | Outpatient (AMB) | payer MEDICARE, MEDICAID, SELFPAY ==
--- NOTE | 2023-10-20 13:11 | A.OFFVIS_ITS ---
Intake Vital Signs 10/20/23 13:12 Height 5 ft 5 in Weight 194 lb 7.163 oz BMI 32.4 BP 134/82 Blood Pressure Location Lt brachial Position Sitting Pulse 62 Pulse Source Pulse Oximeter Intake Visit Reasons: 6 month f/u Tattoo And Body Artist Required: No Allergies CARLITOS Inhibitors [CARLITOS INHIBITORS] Allergy (Severe, Verified 10/20/23 13:14) COUGH rifampin [RIFAMPIN] Allergy (Severe, Verified 10/20/23 13:14) MUSCLE ACHE,PAINS simvastatin [SIMVASTATIN] Allergy (Severe, Verified 10/20/23 13:14) MUSCLE, muscle px ibuprofen Allergy (Unknown, Verified 10/20/23 13:14) kidney disease ciprofloxacin [From CIPRO] Adverse Reaction (Unknown, Verified 10/20/23 13:14) NAUSEA/VOMITING Medication List - Last Reconciled 10/20/23 by JEFERSON Weeks acetaminophen 650 mg (2 x 325 mg) PO Q6H PRN 30 days apixaban (Eliquis) 5 mg PO BID ascorbic acid (vitamin C) (Vitamin C) 1,000 mg PO DAILY brimonidine-timolol 0.2-0.5 % (Combigan) 1 drp ophthalmic (eye) BID buspirone 10 mg PO TID cholecalciferol (vitamin D3) 25 mcg PO DAILY colesevelam 1,250 mg (2 x 625 mg) PO BID commode As directed dexlansoprazole (Dexilant) 60 mg PO DAILY dicyclomine 10 mg PO BID dulaglutide (Trulicity) 0.75 mg subcut QWEEK ferrous sulfate (iron) 325 mg PO DAILY hyoscyamine sulfate 0.125 mg PO QID L. acidophilus-L. rhamnosus 15 billion cell (Probiotic) 1 cap PO DAILY methylcellulose (laxative) (Citrucel) 500 mg PO BID PRN metoprolol succinate ER 50 mg PO QPM quetiapine 25 mg PO BEDTIME sennosides (senna) 8.6 mg PO DAILY PRN valacyclovir 500 mg PO DAILY valsartan 320 mg PO DAILY walker Folding Front wheeled walker HPI 6 month f/u HPI Karen Martin is a 53-year-old female with past medical history of hypertension, diabetes, chronic kidney disease, paroxysmal atrial fibrillation who presents for follow-up. Today she reports that she has been doing generally well since her last visit in March. She still has periodic dizziness. She has not had any presyncope, syncope, falls. She notices this symptom randomly and at times when she turns her head. She does have heart palpitations if she lays on her left side. She has to sleep on her right side. She feels that she can bring the palpitations on. She believes this is her atrial fibrillation. She does not notice the palpitations in the daytime. No chest discomfort at rest or with activity. No shortness of breath, PND, orthopnea or edema. Taking all meds as directed. [facility] Medical History Constipation Osteoarthritis of right knee Depression Fibromyalgia Psoriasis PAF (paroxysmal atrial fibrillation) Latent tuberculosis Atrophic kidney Anxiety Uveitis Hypertension Diabetes mellitus Bradycardia Positive TB test Primary osteoarthritis of knees, bilateral Polyarthralgia Surgical History Hx of colonoscopy History of esophagogastroduodenoscopy (EGD) Hx of tooth extraction Hx of right knee surgery History of partial hysterectomy Hx of cholecystectomy History of eye surgery Hx of tubal ligation Family History Father Diabetes COPD (chronic obstructive pulmonary disease) Asthma Mother HTN (hypertension) Arthritis Hyperlipemia Sister Neoplasm of head Social History Household Members: Family Housing: House Are you a primary child care center administrator to a significant other at home: No 75 years or older and lives alone: No Alcohol intake: current Alcohol intake frequency: a few times a month Alcohol type: beer, wine and hard liquor Patient Tobacco Use Status: Never used Tobacco Second Hand Smoke Exposure: No service: No Current occupational status: employed Current occupation: MA Review of Systems Const All systems reviewed & are unremarkable except as noted in HPI and below ENT Denies dizziness Card Denies chest pain, Denies chest pain at rest, Denies chest pain with activity, Denies rapid heart rate, Denies pedal edema, Denies edema, Denies leg edema, Denies lightheadedness, Denies palpitations, Denies dyspnea, Denies dyspnea on exertion and Denies orthopnea Resp Denies cough, Denies dyspnea and Denies dyspnea on exertion GI Denies hematochezia and Denies change in stool character Musc Denies abnormal gait, Denies limited range of motion, Denies muscle cramps, Denies muscle weakness, Denies numbness, Denies radiating pain into limb, Denies stiffness and Denies tingling Neuro Denies abnormal gait, Denies dizziness, Denies numbness and Denies tingling Endo Denies palpitations Physical Exam Vital Signs: Last Vital Signs Pulse 62 10/20/23 13:12 BP 134/82 10/20/23 13:12 BMI result Body Mass Index 32.4 Const General: cooperative, healthy appearing, comfortable and no acute distress Orientation/consciousness: patient oriented x3 Neck Neck: Yes normal visual inspection and Yes no JVD Resp Effort & Inspection: normal respiratory effort Auscultation: clear to auscultation bilaterally, no crackles, no rales, no rhonchi and no wheezes Cardio Jugular venous distension: no JVD Rate: regular rate Rhythm: regular rhythm Heart sounds: S1 normal heart sound present, S2 normal heart sound present, no murmurs and no rubs Neuro General: patient oriented x3 Extrem General: Yes normal to inspection, No no pedal edema and No calf tenderness Psych Appearance: grossly normal Mental Status: mental status grossly normal Speech and movement: Normal speech and movement present Assessment & Plan Assessment & Plan (1) Paroxysmal A-fib: Code(s): I48.0 - Paroxysmal atrial fibrillation Plan: History of paroxysmal atrial fibrillation. Mostly Suppressed with metoprolol XL 50 mg daily. EKG done last visit showing sinus bradycardia, sinus arrhythmia, rate 56. Pulse regular on examination today. She continues to report palpitations if she lays on her left side. Will check a Holter monitor and instructed her to lay on her left side while wearing a monitor to see what rhythm is recorded. She has had AFib and prior Holter showing brief SVT. She is on Eliquis 5 mg b.i.d. for anticoagulation. No bleeding issues reported. Continue current treatment. Plan to call her with Holter results. Cardiology follow-up 3 months, sooner if needed (2) Dizziness: Code(s): R42 - Dizziness and giddiness Plan: She has been experiencing episodes of dizziness when she is upright and with position changes, sitting to standing. Her valsartan dose was reduced by her home service technician without improvement in her symptom. She tells me she has checked her blood sugar and her blood pressure when she has the symptom and they are both within normal limits. No hypotension has been documented. Her symptoms do not sound like classic vertigo as she has no dizziness with bending, turning her head or rolling over in bed. She was not orthostatic on examination last visit. She continues to have periodic episodes of dizziness. Her symptoms still sounds like it could be vertigo. Informed her to discuss with her PCP. (3) Hypertension: Code(s): I10 - Essential (primary) hypertension Plan: Well controlled. No med changes made Plan Time spent on chart review, documentation, interview and assessment Orders: Orders ECG 3 day holter monitor Today I48.0 - Paroxysmal atrial fibrillation Coding Level of Care Code Est Pt Level 3 (15388) Diagnoses Paroxysmal A-fib I48.0 Dizziness R42 Hypertension I10 Time Spent (min) 24
[2023-10-20 13:12] VITALS: BP 134/82; PULSE 62; BMI 32.4
== END 2023-10-20 13:42 | disposition home or self-care (01) ==
PROVIDERS: PCP Family Medicine; Visit Provider Nurse Practitioner Family
DX: I48.0 Paroxysmal atrial fibrillation (principal); R42 Dizziness and giddiness; I10 Essential (primary) hypertension
CPT/HCPCS: 99213

== ENCOUNTER → 2023-10-20 12:59 | Outpatient (BNVA) | payer MEDICARE, MEDICAID, SELFPAY | PROVIDERS: PCP Family Medicine; Visit Provider Nurse Practitioner Family | DX: I48.0 Paroxysmal atrial fibrillation (principal); R42 Dizziness and giddiness; I10 Essential (primary) hypertension | CPT/HCPCS: 99212 ==

== ENCOUNTER 2023-10-29 15:07 | Outpatient (REF) | payer MEDICARE, MEDICAID, SELFPAY ==
[2023-10-29 17:24] LABS: MANUAL DIFF FLAG NO
[2023-10-29 17:41] LABS: Estimated Average Glucose 114 mg/dL; Hemoglobin A1C 121.8934 umol/L; Hemoglobin A1c % 5.6 % (<6.0)
[2023-10-29 18:26] LABS: Alanine Aminotransferase 22 U/L (0-31); Albumin Level 3.8 g/dL (3.5-5.0); Alkaline Phosphatase 79 U/L (39-117); Anion Gap 13 (12-20); Aspartate Amino Transferase 26 U/L (5-31); Bilirubin Total 0.3 mg/dL (0.0-1.0); Blood Urea Nitrogen 13 mg/dL (9-16); Calcium 9.5 mg/dL (8.4-10.2); Carbon Dioxide 27 mmol/L (22-29); Chloride 107 mmol/L (96-108); Cholesterol 161 mg/dL (<200); Estimated Glomerular Filt Rate 53; Glucose Random 89 mg/dL (60-115); HDL Cholesterol 57 mg/dL (>40); LDL Cholesterol Calculated 86 mg/dL (<100); Potassium 3.8 mmol/L (3.3-5.1); Sodium 143 mmol/L (135-145); Total Protein 7.3 g/dL (6.5-8.0); Triglycerides 90 mg/dL (<150)
[2023-10-29 18:29] LABS: TSH reflex Free T4 0.12 uIU/mL (0.32-4.0)
[2023-10-29 19:26] LABS: Basophils Percent Auto 0.5 % (0-2); Eosinophils Absolute Auto 0.1 X10*3/uL (0.0-0.4); Hematocrit 38.9 % (37.0-47.0); Hemoglobin 12.9 g/dl (12.0-16.0); Imm Gran Abs Auto 0.01 X10*3/uL (0.00-0.03); Imm Gran Pct Auto 0.2 % (0.0-0.4); Lymphocytes Absolute Auto 0.8 X10*3/uL (1.2-4.9); Lymphocytes Percent Auto 19.6 % (20-40); Mean Corpuscular HGB Conc 33.2 g/dl (31.0-35.0); Mean Corpuscular Hemoglobin 31.7 pg (27.0-33.0); Mean Corpuscular Volume 95.6 fL (80.0-98.0); Mean Platelet Volume 9.5 fL (9.4-12.3); Monocytes Absolute Auto 0.6 X10*3/uL (0.1-1.2); Monocytes Percent Auto 14.9 % (2-11); Neutrophils Absolute Auto 2.5 x10*3/uL (2.0-8.3); Neutrophils Percent Auto 62.8 % (45-73); Platelet Count 199 X10*3/uL (160-400); Red Blood Count 4.07 X10*6/uL (4.20-5.50); Red Cell Distribution Width 13.2 % (11.0-16.0)
[2023-10-29 19:38] LABS: Free T4 (Free Thyroxine) 1.18 ng/dL (0.71-1.85)
== END 2023-10-29 15:08 | disposition home or self-care (01) ==
LOC: HO.CHCLDS 15:07
PROVIDERS: Visit Provider Family Medicine
DX: E66.09 Other obesity due to excess calories (principal); Z68.32 Body mass index [BMI] 32.0-32.9, adult; E11.9 Type 2 diabetes mellitus without complications
CPT/HCPCS: 36415; 80053; 80061; 83036; 84439; 84443; 85025

== ENCOUNTER → 2023-11-09 13:07 | Outpatient (REF) | payer MEDICARE, MEDICAID, SELFPAY ==
--- NOTE | 2023-11-09 13:11 | HM_ITS ---
* Total monitoring time 3 days. * Underlying rhythm is sinus with an average rate of 64/Min. Range 40 to 131/Min. * Rare supraventricular and ventricular ectopy. * No significant pauses or AV blocks. * No patient markers or diary events. MTDD
== END ==
LOC: HO.CARD 13:07
PROVIDERS: PCP Family Medicine; Visit Provider Nurse Practitioner Family
DX: I48.0 Paroxysmal atrial fibrillation (principal)
CPT/HCPCS: 93242

== ENCOUNTER → 2023-11-09 13:11 | Outpatient (BNV) | payer MEDICARE, MEDICAID, SELFPAY | PROVIDERS: PCP Family Medicine; Visit Provider Internal Medicine | DX: I48.0 Paroxysmal atrial fibrillation (principal) | CPT/HCPCS: 93244 ==

== ENCOUNTER 2023-11-13 10:41 | Outpatient (REF) | payer MEDICARE, MEDICAID, SELFPAY ==
[2023-11-13 13:28] LABS: TSH reflex Free T4 0.31 uIU/mL (0.32-4.0)
[2023-11-13 14:42] LABS: Free T4 (Free Thyroxine) 0.93 ng/dL (0.71-1.85)
[2023-11-14 08:58] LABS: Triiodothyronine T3 Free 3.1 pg/mL (2.3-4.2)
== END 2023-11-13 10:42 | disposition home or self-care (01) ==
LOC: HO.LAB 10:41
PROVIDERS: PCP Family Medicine; Visit Provider Family Medicine
DX: E03.8 Other specified hypothyroidism (principal); R79.89 Other specified abnormal findings of blood chemistry
CPT/HCPCS: 36415; 84439; 84443; 84481

== ENCOUNTER 2023-11-20 15:22 | Outpatient (REF) | payer MEDICARE, MEDICAID, SELFPAY ==
[2023-11-25 15:18] LABS: Thyrotropin Receptor Antibody <1.00 IU/L (<=2.00)
== END 2023-11-20 15:23 | disposition home or self-care (01) ==
LOC: HO.LAB 15:22
PROVIDERS: PCP Family Medicine; Visit Provider Family Medicine
DX: R79.89 Other specified abnormal findings of blood chemistry (principal)
CPT/HCPCS: 36415; 83520

== ENCOUNTER 2023-12-02 12:54 | Outpatient (REF) | payer MEDICARE, MEDICAID, SELFPAY ==
--- NOTE | ~2023-12-02 | US_ITS ---
EXAMINATION: US THYROID CLINICAL INFORMATION: Persistent low thyroid stimulating hormone, unknown etiology. COMPARISON: Thyroid ultrasound 04/25/2020. Ultrasound soft tissue head/neck 04/11/2020. TECHNIQUE: Linear transducer newell-scale and color Doppler examination with attention to the region of the thyroid. FINDINGS: SIZE: Measurements of the thyroid lobes and nodules are given in sagittal, anteroposterior and transverse dimensions respectively. Right Thyroid Lobe: 5.6 x 1.9 x 2.3 cm, volume 13.0 mL. Previously 5.8 x 1.9 x 2.4 cm, volume 13.8 mL. Parenchyma: The gland echotexture is homogeneous. Thyroid vascularity is normal. Left Thyroid Lobe: 4.9 x 1.9 x 2.3 cm, volume 11.1 mL. Previously 4.8 x 2.0 x 2.7 cm, volume 13.6 mL. Parenchyma: The gland echotexture is homogeneous. Thyroid vascularity is normal. Isthmus: 0.5 cm in maximum AP dimension. Previously 0.5 cm. Estimated total number of nodules greater than or equal to 1 cm: 4. Rebar Bender nodules are described as follows: 1. Location: Right mid. Size: 1.3 x 0.8 x 1.1 cm, volume 0.6 mL. Previously: 1.2 x 0.8 x 1.1 cm, volume 0.6 mL. Nodule characteristics: Composition: Solid/almost completely solid (2). Echogenicity: Hypoechoic (2). Shape: Not taller than wide (0). Margins: Ill-defined (0). Echogenic Foci: None (0). ACR TI-RADS total points: 4 ACR TI-RADS category: 4 Significant change in size (>/= 20% in 2 dimensions and minimal increase of 2 mm or 50% or greater increase in volume): No Change in features: No Change in ACR TI-RADS risk category: No 2. Location: Right inferior. Size: 1.7 x 1.3 x 1.2 cm, volume 1.4 mL. Previously: 2.6 x 1.3 x 1.5 cm, volume 2.7 mL. Nodule characteristics: Composition: Solid/almost completely solid (2). Echogenicity: Isoechoic (1). Shape: Not taller than wide (0). Margins: Ill-defined (0). Echogenic Foci: None (0). ACR TI-RADS total points: 3 ACR TI-RADS category: 3 Significant change in size (>/= 20% in 2 dimensions and minimal increase of 2 mm or 50% or greater increase in volume): No Change in features: No Change in ACR TI-RADS risk category: No 3. Location: Left mid. Size: 1.2 x 0.7 x 1.4 cm, volume 0.6 mL. Previously: 1.3 x 0.9 x 1.5 cm, volume 0.9 mL. Nodule characteristics: Composition: Solid (2). Echogenicity: Hypoechoic (2). Shape: Not taller than wide (0). Margins: Smooth (0). Echogenic Foci: None (0). ACR TI-RADS total points: 4 ACR TI-RADS category: 4 Significant change in size (>/= 20% in 2 dimensions and minimal increase of 2 mm or 50% or greater increase in volume): No Change in features: No Change in ACR TI-RADS risk category: No 4. Location: Isthmus. Size: 1.0 x 0.9 x 1.0 cm, volume 0.5 mL. Previously: 1.3 x 1.0 x 1.1 cm, volume 0.7 mL. Nodule characteristics: Composition: Solid (2). Echogenicity: Hypoechoic (2). Shape: Not taller than wide (0). Margins: Ill-defined (0). Echogenic Foci: None (0). ACR TI-RADS total points: 4 ACR TI-RADS category: 4 Significant change in size (>/= 20% in 2 dimensions and minimal increase of 2 mm or 50% or greater increase in volume): No Change in features: No Change in ACR TI-RADS risk category: No NODES: No lymphadenopathy is seen in the tissue surrounding the thyroid gland. US/US thyroid IMPRESSION: 1. There are continued stable thyroid nodules, as detailed. Recommend continued thyroid ultrasound surveillance. 2. There is a mild goiter. ACR TI-RADS RECOMMENDATION REFERENCE: Ultrasound-guided fine-needle aspiration, follow up ultrasound, no further followup. * TR1 (0 point) and TR2 (2 points): No FNA or followup * TR3 (3 points): FNA if more than or equal to 2.5 cm in maximum dimension, follow up ultrasound in 1, 3 and 5 years if 1.5 to 2.4 cm in maximum dimension. * TR4 (4-6 points): FNA if more than or equal to 1.5 cm in maximum dimension, follow up ultrasound in 1, 2, 3 and 5 years if 1 to 1.4 cm in maximum dimension. * TR5 (more than or equal to 7 points): FNA if more than or equal to 1 cm in maximum dimension, follow up ultrasound every year for 5 years if 0.5 to 0.9 cm in maximum dimension. * TR3, TR4 or TR5 nodules that are below the size threshold for follow up receive no followup.
== END 2023-12-02 12:55 | disposition home or self-care (01) ==
LOC: HO.US 12:54
PROVIDERS: PCP Family Medicine; Visit Provider Family Medicine
DX: R79.89 Other specified abnormal findings of blood chemistry (principal)
CPT/HCPCS: 76536

== ENCOUNTER 2023-12-17 11:33 | Outpatient (AMB) | payer MEDICARE, MEDICAID, SELFPAY ==
[2023-12-17 11:36] VITALS: BP 132/82; PULSE 46; O2SAT 99; BMI 32.3
--- NOTE | 2023-12-17 11:36 | HO.NEPHOV_ITS ---
Vital Signs 12/17/23 11:36 Height 5 ft 5 in Weight 194 lb BMI 32.3 BP 132/82 Blood Pressure Location Lt brachial Position Sitting Pulse 46 L Pulse Source Pulse Oximeter Pulse Oximetry (%) 99 Oxygen Delivery Method Room Air Intake Visit Reasons: Transferring care from [facility]/ Confirmed Street Car Inspector Required: No Accompanied by: Self / Same As Patient Allergies CARLITOS Inhibitors [CARLITOS INHIBITORS] Allergy (Severe, Verified 12/17/23 11:38) COUGH rifampin [RIFAMPIN] Allergy (Severe, Verified 12/17/23 11:38) MUSCLE ACHE,PAINS simvastatin [SIMVASTATIN] Allergy (Severe, Verified 12/17/23 11:38) MUSCLE, muscle px ibuprofen Allergy (Unknown, Verified 12/17/23 11:38) kidney disease ciprofloxacin [From CIPRO] Adverse Reaction (Unknown, Verified 12/17/23 11:38) NAUSEA/VOMITING HPI Comments Details: . 53-year-old woman with a history of chronic kidney disease in atrophic right kidney in the setting of longstanding diabetes mellitus and hypertension. She has history of chronic abdominal pain fibromyalgia. History of bipolar disorder as well and irritable bowel syndrome. She is here for renal evaluation Previous serum creatinine was around 1.0-1.2 mg/dL. She has a history of uveitis and was seen in [place] in the past. History of psoriatic arthritis she has been on Plaquenil. She is history of recurrent UTIs [facility], [facility] Medical History Constipation Osteoarthritis of right knee Depression Fibromyalgia Psoriasis PAF (paroxysmal atrial fibrillation) Latent tuberculosis Atrophic kidney Anxiety Uveitis Hypertension Diabetes mellitus Bradycardia Positive TB test Primary osteoarthritis of knees, bilateral Polyarthralgia Surgical History Hx of colonoscopy History of esophagogastroduodenoscopy (EGD) Hx of tooth extraction Hx of right knee surgery History of partial hysterectomy Hx of cholecystectomy History of eye surgery Hx of tubal ligation Family History Father Diabetes COPD (chronic obstructive pulmonary disease) Asthma Mother HTN (hypertension) Arthritis Hyperlipemia Sister Neoplasm of head Social History Household Members: Family Housing: House Are you a primary transition of care specialist to a significant other at home: No 75 years or older and lives alone: No Alcohol intake: current Alcohol intake frequency: a few times a month Alcohol type: beer, wine and hard liquor Patient Tobacco Use Status: Never used Tobacco Second Hand Smoke Exposure: No service: No Current occupational status: employed Current occupation: MA Physical Exam Vital Signs: Last Vital Signs Pulse 46 L 12/17/23 11:36 BP 132/82 12/17/23 11:36 Pulse Ox 99 12/17/23 11:36 Oxygen Delivery Method Room Air 12/17/23 11:36 BMI result Body Mass Index 32.3 Const General: comfortable Nutritional Appearance: well nourished Orientation/consciousness: patient oriented x3 HEENT Head: No normal to inspection Mouth: moist mucous membranes Neck Neck: Yes supple and Yes no JVD Resp Auscultation: clear to auscultation bilaterally, no rales and rub present Cardio Jugular venous distension: no JVD Palpation: no palpable S3 and no palpable S4 Heart sounds: no rubs GI Palpation (GI): Soft to palpation and nontender Percussion: No Fluid wave present General: Yes no CVA tenderness Back/Spine/Pelvis Back: no CVA tenderness Skin General skin exam: no rashes or lesions noted Neuro General: patient oriented x3 Extrem General: Yes no pedal edema and No clubbing Results Reviewed Results Reviewed: Abdomen sonogram in 2022 RIGHT KIDNEY: Chronic right renal atrophy. No hydronephrosis. No discrete mass or nephrolithiasis. LEFT KIDNEY: Normal. No hydronephrosis. No renal calculi or focal parenchymal lesions. The kidney measures 12.1 cm in maximum dimension. Nephrology Results: Hgb 12.9 g/dl (12.0-16.0) 10/29/23 WBC 4.0 X10*3/uL (4.8-10.8) L 10/29/23 Plt Count 199 X10*3/uL (160-400) 10/29/23 Sodium 143 mmol/L (135-145) 10/29/23 Potassium 3.8 mmol/L (3.3-5.1) 10/29/23 Chloride 107 mmol/L (96-108) 10/29/23 Carbon Dioxide 27 mmol/L (22-29) 10/29/23 BUN 13 mg/dL (9-16) 10/29/23 Creatinine 1.07 mg/dL (0.5-1.4) 10/29/23 Calcium 9.5 mg/dL (8.4-10.2) 10/29/23 Assessment & Plan Assessment & Plan (1) Recurrent UTI: Code(s): N39.0 - Urinary tract infection, site not specified Category: Medical (2) Hypertension: Code(s): I10 - Essential (primary) hypertension Category: Medical Plan 53-year-old man with a history of diabetes mellitus hypertension and chronic kidney disease with multiple UTIs has atrophic right kidney. At present renal function is close to baseline. The exact etiology for the right renal atrophy is unclear. We will obtain Doppler of the renal arteries. At present blood pressure is well controlled. Due to recurrent UTIs I will refer her for urology evaluation as well. I have encouraged her to stand low-sodium diet Continue overt nephrotoxic agents Orders: Orders Total Protein Urine Random 12/17/23 I10 - Essential (primary) hypertension Creatinine Urine 12/17/23 I10 - Essential (primary) hypertension, N05.9 - Unspecified nephritic syndrome with unspecified morphologic changes US renal doppler 12/17/23 N39.0 - Urinary tract infection, site not specified NM renal flow w pharm int 12/17/23 N26.1 - Atrophy of kidney (terminal), N39.0 - Urinary tract infection, site not specified UA and rflx microscopic 12/17/23 I10 - Essential (primary) hypertension Referrals Urology Referral N39.0 - Urinary tract infection, site not specified, R31.9 - Hematuria, unspecified Medications: Changed From metoprolol succinate ER 50 mg PO QPM 90 tabs 2RF I48.0 - Paroxysmal atrial fibrillation To metoprolol succinate ER 25 mg PO DAILY 30 tabs 2RF I48.0 - Paroxysmal atrial fibrillation Discontinued blood pressure monitor Discontinued Reason: Doctor's Order As directed 1 ea 0RF Coding Level of Care Code Est Pt Level 4 (26294) Diagnoses Recurrent UTI N39.0 Hypertension I10
== END 2023-12-17 12:06 | disposition home or self-care (01) ==
PROVIDERS: PCP Family Medicine; Visit Provider Internal Medicine Hypertension Specialist
DX: N39.0 Urinary tract infection, site not specified (principal); I10 Essential (primary) hypertension
CPT/HCPCS: 99214

== ENCOUNTER → 2023-12-17 11:33 | Outpatient (BNVA) | payer MEDICARE, MEDICAID, SELFPAY | PROVIDERS: PCP Family Medicine; Visit Provider Internal Medicine Hypertension Specialist | DX: N39.0 Urinary tract infection, site not specified (principal); I10 Essential (primary) hypertension | CPT/HCPCS: 99212 ==

== ENCOUNTER → 2023-12-24 10:35 | Outpatient (REF) | payer MEDICARE, MEDICAID, SELFPAY ==
--- NOTE | ~2023-12-24 | NM_ITS ---
EXAMINATION: THYROID UPTAKE AND SCAN CLINICAL INFORMATION: Persistently low TSH, unknown etiology. COMPARISON: No previous radionuclide thyroid scan is available for comparison. Thyroid ultrasound dated 12/02/2023 is available for comparison. TECHNIQUE: Following the oral administration of 253 microcuries of I-123 sodium iodide, thyroid uptake was performed and expressed as a percentage of the administrated dose. Gamma scintillation camera images of the thyroid in the anterior and right and left anterior oblique views were obtained using a pinhole collimator following the administration of 10 mCi Tc-99m pertechnetate. FINDINGS: The uptake is 12.0% at 4 hours and 40.6% at 24 hours (Normal radioiodine uptake at 24 hours is 10% to 30%). The radioiodine uptake is moderately elevated. The radiopertechnetate thyroid scintigram demonstrates the thyroid gland to be normal in size. There are multiple foci of increased activity present bilaterally. The largest of these is an ovoid shaped focus in the lower pole of the right lobe, but additional rounded foci of increased activity are present in the upper poles bilaterally and in a small focus in the midline isthmus. Activity in the remainder the thyroid gland is visualized, but is significantly less intense than in these discrete foci. A single anterior radioiodine image obtained at the time of the 24-hour uptake is similar to the radio pertechnetate image. The ultrasound study dated 12/02/2023 shows 4 discrete nodules which appear to correspond to the nodules project above on this radionuclide scan. 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 The largest visualized nodule is in the lower pole of the right lobe. The presence of mild extra nodular activity in the remainder the thyroid gland suggests that the TSH is not completely suppressed.
== END ==
LOC: HO.NUCMED 10:35
PROVIDERS: PCP Family Medicine; Visit Provider Family Medicine
DX: E04.1 Nontoxic single thyroid nodule (principal); R79.89 Other specified abnormal findings of blood chemistry
CPT/HCPCS: 78014; A9512; A9516

== ENCOUNTER 2023-12-28 11:38 | Outpatient (AMB) | payer MEDICARE, MEDICAID, SELFPAY ==
--- NOTE | 2023-12-28 11:40 | A.OFFVIS_ITS ---
Vital Signs 12/28/23 11:47 Height 5 ft 5 in Weight 194 lb 0.108 oz BMI 32.3 BP 123/63 Blood Pressure Location Lt brachial Position Sitting Pulse 64 Intake Visit Reasons: 4 month follow up Intake Note: Mario presents in the office as a 4 month follow up. CC: Results to labs and wants to discuss some reports from results that she seen on her portal. Allergies CARLITOS Inhibitors [CARLITOS INHIBITORS] Allergy (Severe, Verified 12/28/23 11:47) COUGH rifampin [RIFAMPIN] Allergy (Severe, Verified 12/28/23 11:47) MUSCLE ACHE,PAINS simvastatin [SIMVASTATIN] Allergy (Severe, Verified 12/28/23 11:47) MUSCLE, muscle px ibuprofen Allergy (Unknown, Verified 12/28/23 11:47) kidney disease ciprofloxacin [From CIPRO] Adverse Reaction (Unknown, Verified 12/28/23 11:47) NAUSEA/VOMITING HPI HPI 4 month follow up: Details: 53 yr old f being seen for f/u RECAP: EGD/colonoscopy: 2019 reflux changes on bx, hyperplastic polyp removed she had concerns for bad breath and metallic taste in mouth GES 10/2022- normal US--hepatic steatosis INTERIM: she tried creon but no better she still has post prandial pain and diarrhea after eating, goes right thru her she still has bad breath no nausea or vomiting no melena, no rectal bleeding still taking dexilant and helps heartburn she is taking probiotics, align she eats a lot of yoghurt and cheese --gave a trial of stopping these for 1 month and felt no different she has poor sleep, she feels metoprolol can cause nightmares and poor sleep EXAM: GENERAL: The patient is well developed and nontoxic. VITAL SIGNS:see workflow HEENT: Nonicteric sclerae, PERRLA, EOMI. Oropharynx clear. Moist mucous membranes. Conjunctivae appear well perfused. No thyroid mass. CHEST: Chest wall is nontender. HEART: Regular rate and rhythm without murmurs. LUNGS: Clear to auscultation bilaterally. ABDOMEN: Soft, positive bowel sounds, nontender, no organomegaly.no flank tenderness SKIN: No rash, no excessive bruising, petechiae, or purpura. NEUROLOGIC: Cranial nerves II-XII intact without motor/sensory deficit. Psych: normal affect A/P: 1/ Post prandial diarrhea and cramps, halitosis, maybe related to lactose intolerance, malabsorption, food intolerance, food allergies, panc insuff--fecal lactoferrin and crp are negative, could be functional or related to medications 2/ NAFLD\ PLAN: 1/ trial of urosdiol 2/ recheck B vitamin, B5 was low, add rast 3/ cant take bentyl or TCA due to glaucoma 4/ increase fiber PFSH Medical History Constipation Osteoarthritis of right knee Depression Fibromyalgia Psoriasis PAF (paroxysmal atrial fibrillation) Latent tuberculosis Atrophic kidney Anxiety Uveitis Hypertension Diabetes mellitus Bradycardia Positive TB test Primary osteoarthritis of knees, bilateral Polyarthralgia Surgical History Hx of colonoscopy History of esophagogastroduodenoscopy (EGD) Hx of tooth extraction Hx of right knee surgery History of partial hysterectomy Hx of cholecystectomy History of eye surgery Hx of tubal ligation Family History Father Diabetes COPD (chronic obstructive pulmonary disease) Asthma Mother HTN (hypertension) Arthritis Hyperlipemia Sister Neoplasm of head Social History Household Members: Family Housing: House Are you a primary critical care nurse to a significant other at home: No 75 years or older and lives alone: No Alcohol intake: current Alcohol intake frequency: a few times a month Alcohol type: beer, wine and hard liquor Patient Tobacco Use Status: Never used Tobacco Second Hand Smoke Exposure: No service: No Current occupational status: employed Current occupation: MA Physical Exam Vital Signs: Last Vital Signs Pulse 64 12/28/23 11:47 BP 123/63 12/28/23 11:47 BMI result Body Mass Index 32.3 Assessment & Plan Assessment & Plan (1) Malabsorption: Code(s): K90.9 - Intestinal malabsorption, unspecified Category: Medical Plan: A/P: 1/ Post prandial diarrhea and cramps, halitosis, maybe related to lactose intolerance, malabsorption, food intolerance, food allergies, panc insuff--fecal lactoferrin and crp are negative, could be functional or related to medications 2/ NAFLD\ PLAN: 1/ trial of urosdiol 2/ recheck B vitamin, B5 was low, add rast 3/ cant take bentyl or TCA due to glaucoma 4/ increase fiber Orders: Orders Vitamin B3 (Niacin) Today K90.9 - Intestinal malabsorption, unspecified Vitamin B1 Today K90.9 - Intestinal malabsorption, unspecified Vitamin B5 (Pantothenic Acid) Today K90.9 - Intestinal malabsorption, unspecified Rast Allergen Today K90.9 - Intestinal malabsorption, unspecified, Z91.018 - Allergy to other foods Vitamin B6 Today K90.9 - Intestinal malabsorption, unspecified Medications: New ursodiol 500 mg PO BID 60 tabs 1RF Discontinued colesevelam Discontinued Reason: Doctor's Order 1,250 mg (2 x 625 mg) PO BID 60 tabs 2RF dicyclomine Discontinued Reason: Patient Completed Course 10 mg PO BID 180 caps 2RF Coding Level of Care Code Est Pt Level 3 (33428) Diagnoses Malabsorption K90.9
[2023-12-28 11:47] VITALS: BP 123/63; PULSE 64; BMI 32.3
== END 2023-12-28 12:12 | disposition home or self-care (01) ==
PROVIDERS: PCP Family Medicine; Visit Provider Internal Medicine Gastroenterology
DX: K90.9 Intestinal malabsorption, unspecified (principal)
CPT/HCPCS: 99213

== ENCOUNTER → 2023-12-28 11:38 | Outpatient (BNVA) | payer MEDICARE, MEDICAID, SELFPAY | PROVIDERS: PCP Family Medicine; Visit Provider Internal Medicine Gastroenterology | DX: K90.9 Intestinal malabsorption, unspecified (principal) | CPT/HCPCS: 99212 ==

== ENCOUNTER 2024-02-05 13:27 | Outpatient (REF) | payer MEDICARE, MEDICAID, SELFPAY ==
--- NOTE | ~2024-02-05 | US_ITS ---
EXAMINATION: ULTRASOUND RENAL WITH DOPPLER CLINICAL INFORMATION: Urinary tract infection COMPARISON: Normal ultrasound on 05/04/2019 TECHNIQUE: Real-time grayscale, color Doppler, and duplex Doppler evaluation of the kidneys and renal vasculature was performed. FINDINGS: RENAL MEASUREMENTS: Right: 7.3 cm. Atrophic, indeterminant soft tissues superior to the right kidney may be an enlarged adrenal gland. Left: 10.9 cm The renal parenchyma appears normal. No hydronephrosis or nephrolithiasis. DOPPLER INTERROGATION: Aorta: 109 cm/sec Right Main Renal Artery: Proximal: 94 cm/sec Mid: 112 cm/sec Distal: 114 cm/sec Left Main Renal Artery: Proximal: 182 cm/sec Mid: 58 cm/sec Distal: 109 cm/sec Renal-Aortic Ratio (RAR): Not calculated secondary to elevated aortic velocities. US/US renal doppler IMPRESSION: 1. No evidence of renal artery stenosis. 2. Atrophic right kidney. 3. Indeterminate soft tissue superior to the right kidney may be an enlarged adrenal gland. Recommend CT for further evaluation.
[2024-02-05 14:51] LABS: Appearance Urine Clear; Color Urine Yellow; Glucose Urine UA Negative (Negative); Leukocyte Esterase Urine Negative (Negative); Nitrite Urine Negative (Negative); PH 5.5 (5.0-9.0); Specific Gravity - Urine 1.015 (1.005-1.025); Urine Blood Negative (Negative); Urine Ketones Negative (Negative); Urine Protein Negative (Neg-Trace)
[2024-02-05 15:11] LABS: Creatinine Urine 113.06 mg/dL; Total Protein Urine Random < 7 mg/dL (<12)
== END 2024-02-05 13:28 | disposition home or self-care (01) ==
LOC: HO.US 13:27
PROVIDERS: PCP Family Medicine; Visit Provider Internal Medicine Hypertension Specialist
DX: N05.9 Unspecified nephritic syndrome with unspecified morphologic changes (principal); N39.0 Urinary tract infection, site not specified; I10 Essential (primary) hypertension
CPT/HCPCS: 81003; 82570; 84156; 93975

== ENCOUNTER 2024-02-09 13:15 | Outpatient (AMB) | payer MEDICARE, MEDICAID, SELFPAY ==
[2024-02-09 13:18] VITALS: BP 130/72; PULSE 61; O2SAT 99; BMI 32.1
--- NOTE | 2024-02-09 13:18 | HO.NEPHOV_ITS ---
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 Accompanied by: Self / Same As Patient Allergies CARLITOS Inhibitors [CARLITOS INHIBITORS] Allergy (Severe, Verified 02/09/24 13:20) COUGH rifampin [RIFAMPIN] Allergy (Severe, Verified 02/09/24 13:20) MUSCLE ACHE,PAINS simvastatin [SIMVASTATIN] Allergy (Severe, Verified 02/09/24 13:20) MUSCLE, muscle px ibuprofen Allergy (Unknown, Verified 02/09/24 13:20) kidney disease ciprofloxacin [From CIPRO] Adverse Reaction (Unknown, Verified 02/09/24 13:20) NAUSEA/VOMITING Medication List - Last Reconciled 02/09/24 by Zachariah Christy MD acetaminophen 650 mg (2 x 325 mg) PO Q6H PRN 30 days apixaban (Eliquis) 5 mg PO BID ascorbic acid (vitamin C) (Vitamin C) 1,000 mg PO DAILY blood pressure monitor (Blood Pressure Kit) As directed brimonidine-timolol 0.2-0.5 % (Combigan) 1 drp ophthalmic (eye) BID buspirone 10 mg PO TID cholecalciferol (vitamin D3) 25 mcg PO DAILY commode As directed dexlansoprazole (Dexilant) 60 mg PO DAILY dulaglutide (Trulicity) 0.75 mg subcut QWEEK ferrous sulfate (iron) 325 mg PO DAILY fluconazole mg PO hyoscyamine sulfate 0.125 mg PO QID L. acidophilus-L. rhamnosus 15 billion cell (Probiotic) 1 cap PO DAILY magnesium citrate,mag oxide 500 mg PO DAILY methylcellulose (laxative) (Citrucel) 500 mg PO BID PRN metoprolol succinate ER 25 mg PO DAILY polymyxin B sulf-trimethoprim 10,000 unit- 1 mg/mL ophthalmic (eye) quetiapine 25 mg PO BEDTIME sennosides (senna) 8.6 mg PO DAILY PRN trazodone 50 mg PO BEDTIME ursodiol 500 mg PO BID 90 days valacyclovir 500 mg PO DAILY PRN valsartan mg PO walker Folding Front wheeled walker HPI Comments Details: . 53-year-old woman with a history of chronic kidney disease in atrophic right kidney in the setting of longstanding diabetes mellitus and hypertension. She has history of chronic abdominal pain fibromyalgia. History of bipolar disorder as well and irritable bowel syndrome. She is here for renal evaluation Previous serum creatinine was around 1.0-1.2 mg/dL. She has a history of uveitis and was seen in [place] in the past. History of psoriatic arthritis she has been on Plaquenil. She is history of recurrent UTIs 02/09/2024. Overall doing better. No specific complaints. Waiting to see Urology next week. Recently had UTI and was treated with Bactrim at the walk-in clinic. Valsartan was decreased from 320 mg down to 160 mg above a month ago. While she was on Bactrim for 7 days she did not take valsartan PFS Medical History Constipation Osteoarthritis of right knee Depression Fibromyalgia Psoriasis PAF (paroxysmal atrial fibrillation) Latent tuberculosis Atrophic kidney Anxiety Uveitis Hypertension Diabetes mellitus Bradycardia Positive TB test Primary osteoarthritis of knees, bilateral Polyarthralgia Surgical History Hx of colonoscopy History of esophagogastroduodenoscopy (EGD) Hx of tooth extraction Hx of right knee surgery History of partial hysterectomy Hx of cholecystectomy History of eye surgery Hx of tubal ligation Family History Father Diabetes COPD (chronic obstructive pulmonary disease) Asthma Mother HTN (hypertension) Arthritis Hyperlipemia Sister Neoplasm of head Social History Household Members: Family Housing: House Are you a primary health care specialist to a significant other at home: No 75 years or older and lives alone: No Alcohol intake: current Alcohol intake frequency: a few times a month Alcohol type: beer, wine and hard liquor Patient Tobacco Use Status: Never used Tobacco Second Hand Smoke Exposure: No service: No Current occupational status: employed Current occupation: MA Physical Exam Vital Signs: Last Vital Signs Pulse 61 02/09/24 13:18 BP 130/72 02/09/24 13:18 Pulse Ox 99 02/09/24 13:18 Oxygen Delivery Method Room Air 02/09/24 13:18 BMI result Body Mass Index 32.1 Const General: comfortable; No acute distress Orientation/consciousness: patient oriented x3 Eyes General: appearance normal, both eyes and all related structures Visual Nolen: normal visual nolen by confrontation Neck Neck: Yes supple and Yes no JVD Resp Effort & Inspection: normal respiratory effort and respiratory effort not decreased Auscultation: rhonchi Cardio Palpation: no palpable S3 and no palpable S4 Heart sounds: no rubs GI Inspection: Yes normal to inspection Palpation (GI): Soft to palpation Percussion: Yes normal to percussion Auscultation: normal bowel sounds General: Yes no CVA tenderness Back/Spine/Pelvis Back: no CVA tenderness Skin General skin exam: no petechiae and no purpura Neuro General: patient oriented x3 and no focal motor deficits Extrem General: No clubbing and No edema Results Reviewed Nephrology Results: Urine Protein Negative mg/dL (Neg-Trace) 02/05/24 Urine Creatinine 113.06 mg/dL 02/05/24 Renal US 02/05/24 Assessment & Plan Assessment & Plan (1) Recurrent UTI: Code(s): N39.0 - Urinary tract infection, site not specified Category: Medical (2) Hypertension: Code(s): I10 - Essential (primary) hypertension Category: Medical Plan 53-year-old woman with a history of diabetes mellitus hypertension and chronic kidney disease with multiple UTIs has atrophic right kidney. At present renal function is close to baseline. The exact etiology for the right renal atrophy is unclear. 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 Due to recurrent UTIs she was referred for urology evaluation I have encouraged her to stay on low-sodium diet Continue to avoid nephrotoxic agents Repeat urine culture has been ordered. Since she was on Bactrim I will recheck renal panel again today. Orders: Orders Urine Culture Today N39.0 - Urinary tract infection, site not specified Basic Metabolic Panel 6 Months I10 - Essential (primary) hypertension Basic Metabolic Panel Today N39.0 - Urinary tract infection, site not specified Medications: Refilled metoprolol succinate ER 25 mg PO DAILY 90 tabs 2RF I48.0 - Paroxysmal atrial fibrillation Coding Level of Care Code Est Pt Level 4 (36667) Diagnoses Recurrent UTI N39.0 Hypertension I10
== END 2024-02-09 13:33 | disposition home or self-care (01) ==
PROVIDERS: PCP Family Medicine; Visit Provider Internal Medicine Hypertension Specialist
DX: N39.0 Urinary tract infection, site not specified (principal); I10 Essential (primary) hypertension
CPT/HCPCS: 99214

== ENCOUNTER → 2024-02-09 13:15 | Outpatient (BNVA) | payer MEDICARE, MEDICAID, SELFPAY | PROVIDERS: PCP Family Medicine; Visit Provider Internal Medicine Hypertension Specialist | DX: N39.0 Urinary tract infection, site not specified (principal); I10 Essential (primary) hypertension; N26.1 Atrophy of kidney (terminal) | CPT/HCPCS: 99212 ==

== ENCOUNTER 2024-02-11 14:47 | Outpatient (AMB) | payer MEDICARE, MEDICAID, SELFPAY ==
--- NOTE | 2024-02-11 15:02 | A.OFFVIS_ITS ---
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 Accompanied by: Self / Same As Patient Allergies CARLITOS Inhibitors [CARLITOS INHIBITORS] Allergy (Severe, Verified 02/11/24 15:40) COUGH rifampin [RIFAMPIN] Allergy (Severe, Verified 02/11/24 15:40) MUSCLE ACHE,PAINS simvastatin [SIMVASTATIN] Allergy (Severe, Verified 02/11/24 15:40) MUSCLE, muscle px ibuprofen Allergy (Unknown, Verified 02/11/24 15:40) kidney disease ciprofloxacin [From CIPRO] Adverse Reaction (Unknown, Verified 02/11/24 15:40) NAUSEA/VOMITING Medication List - Last Reconciled 02/11/24 by JULIA Key-GERDA acetaminophen 650 mg (2 x 325 mg) PO Q6H PRN 30 days apixaban (Eliquis) 5 mg PO BID ascorbic acid (vitamin C) (Vitamin C) 1,000 mg PO DAILY blood pressure monitor (Blood Pressure Kit) As directed brimonidine-timolol 0.2-0.5 % (Combigan) 1 drp ophthalmic (eye) BID buspirone 10 mg PO TID cholecalciferol (vitamin D3) 25 mcg PO DAILY commode As directed dexlansoprazole (Dexilant) 60 mg PO DAILY dulaglutide (Trulicity) 0.75 mg subcut QWEEK ferrous sulfate (iron) 325 mg PO DAILY fluconazole mg PO hyoscyamine sulfate 0.125 mg PO QID L. acidophilus-L. rhamnosus 15 billion cell (Probiotic) 1 cap PO DAILY magnesium citrate,mag oxide 500 mg PO DAILY methylcellulose (laxative) (Citrucel) 500 mg PO BID PRN metoprolol succinate ER 25 mg PO DAILY polymyxin B sulf-trimethoprim 10,000 unit- 1 mg/mL ophthalmic (eye) quetiapine 25 mg PO BEDTIME sennosides (senna) 8.6 mg PO DAILY PRN trazodone 50 mg PO BEDTIME ursodiol 500 mg PO BID 90 days valacyclovir 500 mg PO DAILY PRN valsartan mg PO walker Folding Front wheeled walker HPI Comments Details: Jennifer is a very pleasant 54-year-old female patient of Dr. Kimball. She has a past medical history of constipation, depression, fibromyalgia, psoriasis, paroxysmal AFib, atrophic kidney, anxiety, hypertension, diabetes, an d polyarthralgia. She presents to the office today as a new patient for recurrent urinary tract infections. In discussion with the patient today she reports having gone to multiple urgent cares over the last year for urinary tract infections however had a follow-up with her material handling equipment stevedore who recommended given her 1 functioning kidney she have a follow-up with Urology for further assessment evaluation. She currently denies any bothersome urinary issues or concerns. In office urinalysis results reviewed with the patient today. PVR 47 mL. She reports feeling urinary tract infections are related to her bowels as when she suffers from constipation she feels this triggers her UTI. She also notes having UTI like symptoms postcoital. Discussed at length potential causes of recurrent urinary tract infections. She reports having had a renal ultrasound in this is reviewed with Nephrology at her appointment yesterday. She currently denies urinary urgency, urinary frequency, incontinence, nocturia, hematuria, dysuria, foul smelling urine, changes to urinary stream, flank pain, fever, and or chills. She otherwise offers no other issues or concerns at this time. [facility] Medical History (Updated 02/11/24 @ 17:08 by [facility] Constipation Osteoarthritis of right knee Depression Fibromyalgia Psoriasis PAF (paroxysmal atrial fibrillation) Latent tuberculosis Atrophic kidney Anxiety Uveitis Hypertension Diabetes mellitus Bradycardia Positive TB test Primary osteoarthritis of knees, bilateral Polyarthralgia Surgical History Hx of colonoscopy History of esophagogastroduodenoscopy (EGD) Hx of tooth extraction Hx of right knee surgery History of partial hysterectomy Hx of cholecystectomy History of eye surgery Hx of tubal ligation Family History Father Diabetes COPD (chronic obstructive pulmonary disease) Asthma Mother HTN (hypertension) Arthritis Hyperlipemia Sister Neoplasm of head Social History Household Members: Family Housing: House Are you a primary home care consultant to a significant other at home: No 75 years or older and lives alone: No Alcohol intake: current Alcohol intake frequency: a few times a month Alcohol type: beer, wine and hard liquor Patient Tobacco Use Status: Never used Tobacco Second Hand Smoke Exposure: No service: No Current occupational status: employed Current occupation: MA Review of Systems Const Reports no additional complaints Eyes Reports no additional complaints ENT Reports no additional complaints Card Reports as per HPI Resp Reports no additional complaints GI Reports as per HPI Reports as per HPI Musc Reports as per HPI Neuro Reports no additional complaints Psych Reports as per HPI Endo Reports as per HPI Clarke/Lymph Reports no additional complaints Aller/Immun Reports no additional complaints Physical Exam Const General: cooperative, healthy appearing, comfortable, no acute distress, well developed, alert and awake Orientation/consciousness: patient oriented x3 Limitations: no limitations HEENT Head: Yes normal to inspection, Yes normocephalic and Yes atraumatic Ears: hearing grossly normal bilaterally Eyes General: appearance normal, both eyes and all related structures Neck Neck: Yes normal visual inspection and Yes trachea midline Chest Chest palpation & inspection: normal inspection of the chest Resp Effort & Inspection: normal respiratory effort and able to speak in complete sentences Cardio Rate: regular rate GI Inspection: Yes normal to inspection General: Yes no CVA tenderness Back/Spine/Pelvis Back: no CVA tenderness Skin General skin exam: no rashes or lesions noted Neuro General: patient oriented x3 Extrem General: Yes normal to inspection Psych Appearance: grossly normal and well kempt Mental Status: mental status grossly normal Speech and movement: Normal speech and movement present and Clear speech present Affect: normal affect Attitude: cooperative Thought process: Normal thought process present Thought content: Normal thought content present Insight: Fair insight present (Psych) Judgement: Fair judgement present (Psych) Office Procedures Post Void Residual Post Residual Void Post Void Residual (PVR): 47 [id number] Void Residual by ultrasound Results AMB Urinalysis, Automated UA Leukoctes 0 Arnold/uL Last Edit by Ensyn on 02/11/24 15:26 UA Nitrite Negative Last Edit by Ensyn on 02/11/24 15:26 UA Urobilinogen 0.2 mg/dL Last Edit by Ensyn on 02/11/24 15:26 UA Protein 0 mg/dL Last Edit by Ensyn on 02/11/24 15:26 UA pH 6.0 Last Edit by Ensyn on 02/11/24 15:26 UA Blood 0 Faraz/uL Last Edit by Daisy Riamarc on 02/11/24 15:26 UA Specific [place] 1.015 Last Edit by Daisy Polanco on 02/11/24 15:26 UA Ketone Negative Last Edit by Daisy Polanco on 02/11/24 15:26 UA Bilirubin 0 mg/dL Last Edit by Daisy Polanco on 02/11/24 15:26 UA Glucose 0 mg/dL Last Edit by Daisy Polanco on 02/11/24 15:26 Results Reviewed Results Reviewed: Laboratory Last Values Urine pH (Auto) 6.0 02/11/24 15:13 Specific [place] (Auto) 1.015 02/11/24 15:13 Urine Protein (Auto) 0 mg/dL 02/11/24 15:13 Glucose (UA)(Auto) 0 mg/dL 02/11/24 15:13 Urine Ketones (Auto) Negative 02/11/24 15:13 Urine Blood (Auto) 0 Faraz/uL 02/11/24 15:13 Urine Nitrite (Auto) Negative 02/11/24 15:13 Urine Bilirubin (Auto) 0 mg/dL 02/11/24 15:13 Urine Urobilinogen (Auto) 0.2 mg/dL 02/11/24 15:13 Leukocyte Esterase (Auto) 0 Arnold/uL 02/11/24 15:13 Assessment & Plan Assessment & Plan (1) Recurrent UTI: Code(s): N39.0 - Urinary tract infection, site not specified Category: Medical Plan In office urinalysis results reviewed with the patient today; as noted above. PVR 47 mL. Discussed at length potential causes of recurrent urinary tract infections. Prescription provided for postcoital antibiotic therapy. Start Estrace cream as discussed and prescribed. Discussed possible near future in office cystoscopy if symptoms persist. Discussed UTI prevention with D mannose supplement, vitamin-C, increasing fluid intake, behavioral therapy with timed voiding, perineal hygiene and postcoital voiding, and management of constipation with stool softeners and increased fiber intake. Follow-up in 3 months; if not sooner with any issues, concerns, and or questions. Orders: Orders AMB Urinalysis Automated Today Z13.9 - Encounter for screening, unspecified AMB Post Void Residual by ultrasound Today N39.0 - Urinary tract infection, site not specified Medications: New estradiol 0.01%(0.1mg/gram) pea sized amount to urethra daily for one month and then 3 times a week thereafter. 30 days 42.5 grams 3RF nitrofurantoin macrocrystal Postcoital 50 mg PO ONCE 90 days 90 caps 0RF Patient Instructions: The patient had an opportunity to ask questions regarding the treatment plan. All questions were answered. Physical exam, labs, and imaging were discussed and reviewed in detail. As well as risks, benefits, and discussion of treatment choices. No major barriers to understanding were identified. The patient expressed understanding and agreement with the above treatment plan. The patient was made aware they should contact our office by phone for worsening of their current condition, the appearance of new symptoms, or with any questions or concerns. Compliance is encouraged with any medications and follow up testing that is ordered. It is a privilege to be allowed the opportunity to participate in? your urological care.? Again, if you have any questions or concerns If you have any questions or concerns please do not hesitate to contact me. The office is [phone]. This note is constructed using voice recognition software. While every effort has been made to ensure accuracy legal internship errors may have been included. Yours sincerely, JONATHAN Key Coding Level of Care Code New Pt Level 4 (07641) Diagnoses Recurrent UTI N39.0 CPT Codes Post Residual Void - PVR CPT Code: 12291-Nkel Void Residual by ultrasound ([id number])
== END 2024-02-11 15:47 | disposition home or self-care (01) ==
PROVIDERS: PCP Family Medicine; Visit Provider Nurse Practitioner Family
DX: N39.0 Urinary tract infection, site not specified (principal); Z13.9 Encounter for screening, unspecified
CPT/HCPCS: 99204; 99214

== ENCOUNTER → 2024-02-11 14:47 | Outpatient (BNVA) | payer MEDICARE, MEDICAID, SELFPAY | PROVIDERS: PCP Family Medicine; Visit Provider Nurse Practitioner Family | DX: N39.0 Urinary tract infection, site not specified (principal) | CPT/HCPCS: 51798; 81003; 99202 ==

== ENCOUNTER → 2024-02-23 13:06 | Outpatient (REF) | payer MEDICARE, MEDICAID, SELFPAY ==
--- NOTE | ~2024-02-23 | NM_ITS ---
EXAMINATION: NM RENOGRAM WITH LASIX CLINICAL INFORMATION: Atrophic right kidney. COMPARISON: Abdominal ultrasound done on 12/30/2022 and renal ultrasound with Doppler done on 02/05/2024. TECHNIQUE: Dynamic renal scintigraphy was performed after intravenous administration of 10 mCi Tc-99m Technetium 99m DTPA.40 mg of furosemide was administered at 30 minutes and continued dynamic imaging of the abdomen/pelvis was obtained for a total of 60. The scan was stopped at 20 minutes post Lasix injection since the patient needed to void. FINDINGS: Left kidney 91.7% and the right kidney 8.3% of total renal uptake. Left Kidney: Normal in size. Normal perfusion. Following administration of furosemide, the renal washout half-time is 16.5 minutes. Please note that the normal caliber pelvicalyceal system shows progressive washout before as well as after administration of Lasix. Right Kidney: Atrophic. Normal perfusion. Following administration of furosemide, the renal washout half-time is 3.57 minutes. Please note that progressive washout of radiotracer from the normal caliber pelvicalyceal system is seen before as well as after administration of Lasix. Other: None. NM/NM renal flow w pharm int IMPRESSION: 1. Differential renal function: Left 91.7%, Right 8.3%. 2. Normal-sized left kidney has non-obstructive parameters after diuresis. 3. Atrophic right kidney has non-obstructive parameters after diuresis.
== END ==
LOC: HO.NUCMED 13:06
PROVIDERS: PCP Family Medicine; Visit Provider Internal Medicine Hypertension Specialist
DX: N26.1 Atrophy of kidney (terminal) (principal); N39.0 Urinary tract infection, site not specified
CPT/HCPCS: 78708; A9539; J1940

== ENCOUNTER 2024-03-10 15:23 | Outpatient (AMB) | payer MEDICARE, MEDICAID, SELFPAY ==
[2024-03-10 15:42] VITALS: BP 144/82; PULSE 57; BMI 33.3
--- NOTE | 2024-03-10 15:42 | MHC.OFFVIS ---
Vital Signs 03/10/24 15:42 Height 5 ft 5 in Weight 200 lb 2.876 oz BMI 33.3 BP 144/82 H Blood Pressure Location Rt brachial Position Sitting Pulse 57 Pulse Source Pulse Oximeter Intake Visit Reasons: 3 mth s/p holter Potato Chip Sorter Required: No Allergies CARLITOS Inhibitors [CARLITOS INHIBITORS] Allergy (Severe, Verified 03/10/24 15:44) COUGH rifampin [RIFAMPIN] Allergy (Severe, Verified 03/10/24 15:44) MUSCLE ACHE,PAINS simvastatin [SIMVASTATIN] Allergy (Severe, Verified 03/10/24 15:44) MUSCLE, muscle px ibuprofen Allergy (Unknown, Verified 03/10/24 15:44) kidney disease ciprofloxacin [From CIPRO] Adverse Reaction (Unknown, Verified 03/10/24 15:44) NAUSEA/VOMITING Medication List - Last Reconciled 03/10/24 by JEFERSON Weeks acetaminophen 650 mg (2 x 325 mg) PO Q6H PRN 30 days apixaban (Eliquis) 5 mg PO BID ascorbic acid (vitamin C) (Vitamin C) 1,000 mg PO DAILY blood pressure monitor (Blood Pressure Kit) As directed brimonidine-timolol 0.2-0.5 % (Combigan) 1 drp ophthalmic (eye) BID buspirone 10 mg PO TID cholecalciferol (vitamin D3) 25 mcg PO DAILY commode As directed dexlansoprazole (Dexilant) 60 mg PO DAILY dulaglutide (Trulicity) 0.75 mg subcut QWEEK estradiol 0.01%(0.1mg/gram) pea sized amount to urethra daily for one month and then 3 times a week thereafter. 30 days ferrous sulfate (iron) 325 mg PO DAILY fluconazole mg PO hyoscyamine sulfate 0.125 mg PO QID L. acidophilus-L. rhamnosus 15 billion cell (Probiotic) 1 cap PO DAILY magnesium citrate,mag oxide 500 mg PO DAILY methylcellulose (laxative) (Citrucel) 500 mg PO BID PRN metoprolol succinate ER 25 mg PO DAILY nitrofurantoin monohyd/m-cryst 100 mg (Macrobid) 100 mg PO ONCE 90 days polymyxin B sulf-trimethoprim 10,000 unit- 1 mg/mL ophthalmic (eye) quetiapine 25 mg PO BEDTIME sennosides (senna) 8.6 mg PO DAILY PRN trazodone 50 mg PO BEDTIME ursodiol 500 mg PO BID 90 days valacyclovir 500 mg PO DAILY PRN valsartan mg PO walker Folding Front wheeled walker HPI HPI 3 mth s/p holter: Details: Mario is a 54-year-old female with past medical history of hypertension, diabetes, chronic kidney disease, paroxysmal atrial fibrillation during echo last year who presents for follow-up. Today she reports that she has 7 nodules on her thyroid and 1 is making her toxic. She has a low TSH level and her business continuity analyst believes this may be causing her heart palpitations. She continues to have periodic heart palpitations with bubbling feelings in her chest at times. She does not recall having this feeling when she wore the Holter monitor. At times when she lays on her left side she will notice her heart beating fast. She tries to sleep more on her right side to prevent this feeling. She has been having less of an issue with dizziness like previously reported. She has not had any presyncope, syncope, falls. No chest discomfort at rest or with activity. No shortness of breath, PND, orthopnea or edema. She has not been able to sleep good recently. She feels this is because her thyroid is making her hyperactive. She is scheduled to undergo radioactive iodine treatment. taking all meds as directed. No bleeding issues reported PFSH Medical History Constipation Osteoarthritis of right knee Depression Fibromyalgia Psoriasis PAF (paroxysmal atrial fibrillation) Latent tuberculosis Atrophic kidney Anxiety Uveitis Hypertension Diabetes mellitus Bradycardia Positive TB test Primary osteoarthritis of knees, bilateral Polyarthralgia Surgical History Hx of colonoscopy History of esophagogastroduodenoscopy (EGD) Hx of tooth extraction Hx of right knee surgery History of partial hysterectomy Hx of cholecystectomy History of eye surgery Hx of tubal ligation Family History Father Diabetes COPD (chronic obstructive pulmonary disease) Asthma Mother HTN (hypertension) Arthritis Hyperlipemia Sister Neoplasm of head Social History Household Members: Family Housing: House Are you a primary family day carer to a significant other at home: No 75 years or older and lives alone: No Alcohol intake: current Alcohol intake frequency: a few times a month Alcohol type: beer, wine and hard liquor Patient Tobacco Use Status: Never used Tobacco Second Hand Smoke Exposure: No service: No Current occupational status: employed Current occupation: MA Review of Systems Const Details: reports thyroid issues All systems reviewed & are unremarkable except as noted in HPI and below ENT Denies dizziness Card Details: palpitations Denies chest pain, Denies chest pain at rest, Denies chest pain with activity, Denies rapid heart rate, Denies pedal edema, Denies edema, Denies leg edema, Denies lightheadedness, Denies palpitations, Denies dyspnea, Denies dyspnea on exertion and Denies orthopnea Resp Denies cough, Denies dyspnea and Denies dyspnea on exertion GI Denies hematochezia and Denies change in stool character Musc Denies abnormal gait, Denies limited range of motion, Denies muscle cramps, Denies muscle weakness, Denies numbness, Denies radiating pain into limb, Denies stiffness and Denies tingling Neuro Denies abnormal gait, Denies dizziness, Denies numbness and Denies tingling Endo Denies palpitations Physical Exam Vital Signs: Last Vital Signs Pulse 57 03/10/24 15:42 BP 144/82 H 03/10/24 15:42 BMI result Body Mass Index 33.3 Const General: cooperative, healthy appearing, comfortable and no acute distress Orientation/consciousness: patient oriented x3 Neck Neck: Yes normal visual inspection and Yes no JVD Resp Effort & Inspection: normal respiratory effort Auscultation: clear to auscultation bilaterally, no rales, no rhonchi and no wheezes Cardio Jugular venous distension: no JVD Rate: regular rate Rhythm: regular rhythm Heart sounds: S1 normal heart sound present, S2 normal heart sound present, no murmurs and no rubs Neuro General: patient oriented x3 Extrem General: Yes normal to inspection and No no pedal edema Psych Appearance: grossly normal Mental Status: mental status grossly normal Speech and movement: Normal speech and movement present Assessment & Plan Assessment & Plan (1) Paroxysmal A-fib: Code(s): I48.0 - Paroxysmal atrial fibrillation Category: Medical Plan: Finding of paroxysmal atrial fibrillation during echocardiogram 06/03/2022. No documented atrial fibrillation since that time however patient continues to report intermittent heart palpitations. Most recent Holter done 11/09/2023 for 3 days shows sinus rhythm with average heart rate 64, heart rate range 40 to 131, rare SVE and ve. She is on metoprolol for heart rate control. She is on Eliquis for anticoagulation. No bleeding issues reported, CHADS-VASc score of 3. She does report having hyperthyroidism at this time from a thyroid nodule. She will be undergoing radioactive iodine treatment. This hyperthyroid state can contribute to her heart palpitations. Spent time discussing this with her. At this time no med changes made. Cardiology follow-up 6 months, sooner if needed. (2) Hypertension: Code(s): I10 - Essential (primary) hypertension Category: Medical Plan: Mild elevation today. Prior blood pressures reviewed and normally in good range. No med changes at this time. She does have upcoming visits with other providers including Nephrology. Plan Time spent on chart review, documentation, interview and assessment Coding Level of Care Code Est Pt Level 3 (58496) Diagnoses Paroxysmal A-fib I48.0 Hypertension I10 Time Spent (min) 24
== END 2024-03-10 16:00 | disposition home or self-care (01) ==
LOC: HO.HCS 15:23
PROVIDERS: PCP Family Medicine; Visit Provider Nurse Practitioner Family
DX: I48.0 Paroxysmal atrial fibrillation (principal); I10 Essential (primary) hypertension
CPT/HCPCS: 99213

== ENCOUNTER → 2024-03-10 15:23 | Outpatient (BNVA) | payer MEDICARE, MEDICAID, SELFPAY | PROVIDERS: PCP Family Medicine; Visit Provider Nurse Practitioner Family | DX: I48.0 Paroxysmal atrial fibrillation (principal); I10 Essential (primary) hypertension | CPT/HCPCS: 99212 ==

== ENCOUNTER → 2024-04-26 13:23 | Outpatient (REF) | payer OTHER, MEDICAID, SELFPAY ==
--- NOTE | 2024-04-26 13:39 | HM_ITS ---
* Total procedure length 30 days. Wear time 3.2 days. * Average ventricular rate 69/Min. * Rare supraventricular ectopy. * No significant arrhythmias. * No significant pauses or high-grade AV blocks. * No symptoms reported. MTDD
== END ==
LOC: HO.CARD 13:23
PROVIDERS: PCP Family Medicine; Visit Provider Nurse Practitioner Family
DX: I48.0 Paroxysmal atrial fibrillation (principal)
CPT/HCPCS: 93270

== ENCOUNTER → 2024-04-26 13:39 | Outpatient (BNV) | payer OTHER, MEDICAID, SELFPAY | PROVIDERS: PCP Family Medicine; Visit Provider Internal Medicine | DX: I47.10 Supraventricular tachycardia, unspecified (principal) | CPT/HCPCS: 93272 ==

== ENCOUNTER 2024-07-06 11:52 | Outpatient (REF) | payer OTHER, SELFPAY ==
[2024-07-06 14:08] LABS: MANUAL DIFF FLAG NO
[2024-07-06 14:19] LABS: Basophils Percent Auto 0.8 % (0-2); Eosinophils Absolute Auto 0.1 X10*3/uL (0.0-0.4); Eosinophils Percent Auto 1.8 % (0-4); Hematocrit 37.3 % (37.0-47.0); Hemoglobin 12.4 g/dl (12.0-16.0); Imm Gran Abs Auto 0.01 X10*3/uL (0.00-0.03); Imm Gran Pct Auto 0.3 % (0.0-0.4); Lymphocytes Absolute Auto 0.7 X10*3/uL (1.2-4.9); Lymphocytes Percent Auto 18.5 % (20-40); Mean Corpuscular HGB Conc 33.2 g/dl (31.0-35.0); Mean Corpuscular Hemoglobin 31.6 pg (27.0-33.0); Mean Corpuscular Volume 94.9 fL (80.0-98.0); Mean Platelet Volume 9.4 fL (9.4-12.3); Monocytes Absolute Auto 0.5 X10*3/uL (0.1-1.2); Monocytes Percent Auto 11.3 % (2-11); Neutrophils Absolute Auto 2.7 x10*3/uL (2.0-8.3); Neutrophils Percent Auto 67.3 % (45-73); Platelet Count 189 X10*3/uL (160-400); Red Blood Count 3.93 X10*6/uL (4.20-5.50); Red Cell Distribution Width 13.1 % (11.0-16.0)
[2024-07-06 14:40] LABS: Alanine Aminotransferase 18 U/L (0-31); Albumin Level 3.8 g/dL (3.5-5.0); Alkaline Phosphatase 71 U/L (39-117); Anion Gap 8 (12-20); Aspartate Amino Transferase 25 U/L (5-31); Bilirubin Total 0.4 mg/dL (0.0-1.0); Blood Urea Nitrogen 11 mg/dL (9-16); Calcium 9.3 mg/dL (8.4-10.2); Carbon Dioxide 27 mmol/L (22-29); Chloride 107 mmol/L (96-108); Estimated Glomerular Filt Rate > 60; Glucose Random 198 mg/dL (60-115); Lactate Dehydrogenase 197 U/L (122-220); Potassium 3.8 mmol/L (3.3-5.1); Sodium 138 mmol/L (135-145); Total Protein 7.2 g/dL (6.5-8.0)
[2024-07-06 14:46] LABS: Parathyroid Hormone Intact 57.4 pg/mL (8.7-77.1)
[2024-07-06 14:52] LABS: Erythrocyte Sedimentation Rate 25 MM/HR (0-20)
[2024-07-06 15:00] LABS: TSH reflex Free T4 0.02 uIU/mL (0.32-4.0)
[2024-07-06 15:40] LABS: Free T4 (Free Thyroxine) 1.28 ng/dL (0.71-1.85)
[2024-07-07 03:55] LABS: Syphilis Screen Nonreactive (Nonreactive)
[2024-07-07 04:39] LABS: HIV AB/AG Nonreactive (Nonreactive); HIV Num 1 0.05 S/CO (0.00-0.99)
[2024-07-08 01:39] LABS: EBV-VCA IgG Ab >750.00 U/mL; EBV-VCA IgM Ab <36.00 U/mL
[2024-07-09 07:52] LABS: TS Negative Control Passed; TS Panel A 24; TS Panel B 8; TS Positive Control Passed; TSpotTB Positive (Negative)
[2024-07-11 14:24] LABS: Anti Nuclear Antibody Pattern Nuclear, Speckled; Anti Nuclear Antibody Screen POSITIVE (NEGATIVE); Anti Nuclear Antibody Titer 1:40 titer
== END 2024-07-06 11:53 | disposition home or self-care (01) ==
LOC: HO.CHCLDS 11:52
PROVIDERS: Visit Provider Family Medicine
DX: R22.1 Localized swelling, mass and lump, neck (principal)
CPT/HCPCS: 36415; 80053; 83615; 83970; 84439; 84443; 85025; 85652; 86038; 86039; 86481; 86664; 86665; 86780; 87389

== ENCOUNTER 2024-07-12 14:35 | Outpatient (AMB) | payer OTHER, SELFPAY ==
--- NOTE | 2024-07-12 14:40 | A.OFFVIS_ITS ---
Intake Visit Reasons: 3M follow up r/s Intake Note: Patient presents today for follow up on: Microscopic Hematuria and recurrent uti Urology Medications: estrace cream Allergies to Antibiotic: none Blood Thinner: Apixaban PVR: 30ml's Forensic Structural Engineer Required: No Accompanied by: Self / Same As Patient Allergies CARLITOS Inhibitors [CARLITOS INHIBITORS] Allergy (Severe, Verified 07/12/24 15:18) COUGH rifampin [RIFAMPIN] Allergy (Severe, Verified 07/12/24 15:18) MUSCLE ACHE,PAINS simvastatin [SIMVASTATIN] Allergy (Severe, Verified 07/12/24 15:18) MUSCLE, muscle px ibuprofen Allergy (Unknown, Verified 07/12/24 15:18) kidney disease ciprofloxacin [From CIPRO] Adverse Reaction (Unknown, Verified 07/12/24 15:18) NAUSEA/VOMITING Medication List - Last Reconciled 07/12/24 by JULIA Key-GERDA acetaminophen 650 mg (2 x 325 mg) PO Q6H PRN 30 days apixaban (Eliquis) 5 mg PO BID blood pressure monitor (Blood Pressure Kit) As directed brimonidine-timolol 0.2-0.5 % (Combigan) 1 drp ophthalmic (eye) BID buspirone 10 mg PO TID cholecalciferol (vitamin D3) 25 mcg PO DAILY commode As directed dexlansoprazole (Dexilant) 60 mg PO DAILY dulaglutide (Trulicity) 0.75 mg subcut QWEEK estradiol 0.01%(0.1mg/gram) pea sized amount to urethra daily for one month and then 3 times a week thereafter. 30 days ferrous sulfate (iron) 325 mg PO DAILY fluconazole mg PO fluconazole 150 mg PO Q3D 2 doses L. acidophilus-L. rhamnosus 15 billion cell (Probiotic) 1 cap PO DAILY methimazole mg PO methylcellulose (laxative) (Citrucel) 500 mg PO BID PRN metoprolol succinate ER 25 mg PO DAILY nitrofurantoin monohyd/m-cryst 100 mg (Macrobid) 100 mg PO ONCE 90 days polymyxin B sulf-trimethoprim 10,000 unit- 1 mg/mL ophthalmic (eye) quetiapine 25 mg PO BEDTIME sennosides (senna) 8.6 mg PO DAILY PRN trazodone 50 mg PO BEDTIME valacyclovir 500 mg PO DAILY PRN valsartan mg PO walker Folding Front wheeled walker HPI Comments Details: Jennifer is a very pleasant 54-year-old female patient of Dr. Kimball. She has a past medical history of constipation, depression, fibromyalgia, psoriasis, paroxysmal AFib, atrophic kidney, anxiety, hypertension, diabetes, and polyarthralgia. She presents to the office today for follow-up. Of note, patient was seen approximately 5 months ago as a new patient for recurrent urinary tract infections at which time she was started on postcoital antibiotic therapy as patient felt UTIs presented after sexual activity. In discussion with the patient today she denies having had any UTIs and or UTI like symptoms since her last office visit here. She discusses following up with Nephrology as she has an atrophic kidney and 1 functioning kidney. She currently denies any bothersome urinary issues or concerns. We discussed potential causes of recurrent urinary tract infections. When asked she denies urinary urgency, urinary frequency, incontinence, nocturia, hematuria, dysuria, foul smelling urine, changes to urinary stream, flank pain, fever, and or chills. Unable to obtain urine for urinalysis however PVR 30 mLs. She otherwise offers no other issues or concerns at this time. [facility] Medical History Constipation Osteoarthritis of right knee Depression Fibromyalgia Psoriasis PAF (paroxysmal atrial fibrillation) Latent tuberculosis Atrophic kidney Anxiety Uveitis Hypertension Diabetes mellitus Bradycardia Positive TB test Primary osteoarthritis of knees, bilateral Polyarthralgia Surgical History Hx of colonoscopy History of esophagogastroduodenoscopy (EGD) Hx of tooth extraction Hx of right knee surgery History of partial hysterectomy Hx of cholecystectomy History of eye surgery Hx of tubal ligation Family History Father Diabetes COPD (chronic obstructive pulmonary disease) Asthma Mother HTN (hypertension) Arthritis Hyperlipemia Sister Neoplasm of head Social History Household Members: Family Housing: House Are you a primary post acute care registered nurse to a significant other at home: No 75 years or older and lives alone: No Alcohol intake: current Alcohol intake frequency: a few times a month Alcohol type: beer, wine and hard liquor Patient Tobacco Use Status: Never used Tobacco Second Hand Smoke Exposure: No service: No Current occupational status: employed Current occupation: MA Review of Systems Const Reports no additional complaints Eyes Reports no additional complaints ENT Reports no additional complaints Card Reports as per HPI Resp Reports no additional complaints GI Reports as per HPI Reports as per HPI Musc Reports as per HPI Neuro Reports no additional complaints Psych Reports as per HPI Endo Reports as per HPI Clarke/Lymph Reports no additional complaints Aller/Immun Reports no additional complaints Physical Exam Const General: cooperative, healthy appearing, comfortable, no acute distress, well developed, alert and awake Orientation/consciousness: patient oriented x3 Limitations: no limitations HEENT Head: Yes normal to inspection, Yes normocephalic and Yes atraumatic Ears: hearing grossly normal bilaterally Eyes General: appearance normal, both eyes and all related structures Neck Neck: Yes normal visual inspection and Yes trachea midline Chest Chest palpation & inspection: normal inspection of the chest Resp Effort & Inspection: normal respiratory effort and able to speak in complete sentences Cardio Rate: regular rate GI Inspection: Yes normal to inspection General: Yes no CVA tenderness Back/Spine/Pelvis Back: no CVA tenderness Skin General skin exam: no rashes or lesions noted Neuro General: patient oriented x3 Extrem General: Yes normal to inspection Psych Appearance: grossly normal and well kempt Mental Status: mental status grossly normal Speech and movement: Normal speech and movement present and Clear speech present Affect: normal affect Attitude: cooperative Thought process: Normal thought process present Thought content: Normal thought content present Insight: Fair insight present (Psych) Judgement: Fair judgement present (Psych) Office Procedures Post Void Residual Post Residual Void Post Void Residual (PVR): 30 [id number] Void Residual by ultrasound Assessment & Plan Assessment & Plan (1) Recurrent UTI: Code(s): N39.0 - Urinary tract infection, site not specified Category: Medical (2) Atrophic kidney: Code(s): N26.1 - Atrophy of kidney (terminal) Category: Medical Plan Unable to obtain urine for urinalysis however PVR 30mLs. Patient currently denies any bothersome urinary issues or concerns. She denies any UTI like symptoms. Refill provided on postcoital antibiotic therapy. Discussed UTI prevention with D mannose supplement, vitamin-C, increasing fluid intake, behavioral therapy with timed voiding, perineal hygiene and postcoital voiding, and management of constipation with stool softeners and increased fiber intake. Discussed signing medical release form for continuity of care as patient is moving to [place]. Follow-up p.r.n. Orders: Orders AMB Post Void Residual by ultrasound Today N39.0 - Urinary tract infection, site not specified Medications: New fluconazole 150 mg PO Q3D 2 tabs 0RF 2 doses B49 - Unspecified mycosis Refilled nitrofurantoin monohyd/m-cryst 100 mg (Macrobid) to be taken post cotidal 100 mg PO ONCE 90 caps 2RF 90 days Patient Instructions: The patient had an opportunity to ask questions regarding the treatment plan. All questions were answered. Physical exam, labs, and imaging were discussed and reviewed in detail. As well as risks, benefits, and discussion of treatment choices. No major barriers to understanding were identified. The patient expressed understanding and agreement with the above treatment plan. The patient was made aware they should contact our office by phone for worsening of their current condition, the appearance of new symptoms, or with any questions or concerns. Compliance is encouraged with any medications and follow up testing that is ordered. It is a privilege to be allowed the opportunity to participate in? your urological care.? Again, if you have any questions or concerns If you have any questions or concerns please do not hesitate to contact me. The office is [phone]. This note is constructed using voice recognition software. While every effort has been made to ensure accuracy tire fabric inspector errors may have been included. Yours sincerely, JONATHAN Key Coding Level of Care Code Est Pt Level 3 (54811) Diagnoses Recurrent UTI N39.0 Atrophic kidney N26.1 CPT Codes Post Residual Void - PVR CPT Code: 61021-[id number] Void Residual by ultrasound ([id number])
== END 2024-07-12 15:01 | disposition home or self-care (01) ==
PROVIDERS: PCP Family Medicine; Visit Provider Nurse Practitioner Family
DX: N39.0 Urinary tract infection, site not specified (principal); N26.1 Atrophy of kidney (terminal)
CPT/HCPCS: 99213

== ENCOUNTER → 2024-07-12 14:35 | Outpatient (BNVA) | payer OTHER, SELFPAY | PROVIDERS: PCP Family Medicine; Visit Provider Nurse Practitioner Family | DX: R31.29 Other microscopic hematuria (principal); N39.0 Urinary tract infection, site not specified; N26.1 Atrophy of kidney (terminal); B49 Unspecified mycosis | CPT/HCPCS: 51798; 99212 ==